=== PATIENT | male | born 2000 | race Caucasian/White ===

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

== ENCOUNTER 2022-05-10 23:56 | Inpatient (IN) ==
[2022-05-11] MEDS ORDERED: ONDANSETRON INJ 2 MG/ML 2 ML VIAL IV STA (00:13)
[2022-05-11] MEDS ORDERED: SODIUM CHLORIDE 0.9% 500 ML IV STA (00:13)
[2022-05-11] MEDS ORDERED: MoRPHine SULFATE 4 MG/ML 1 ML CARP\\VIAL IV STA ×3 (00:13→02:40)
--- NOTE | 2022-05-11 00:14 | Emergency Department Note ---
Impression & Plan Acute pancreatitis ADMIT ED Provider Note HPI: The patient is a 21-year-old male who presents the emergency department chief complaint of left-sided abdominal pain. Patient states his pain is been worsening since about noon today. Patient denies any nausea or vomiting but states he does have some shortness of breath and pain with deep breathing. Patient states the pain does radiate somewhat to his left flank area. On arrival here to the ED the patient is uncomfortable appearing but he is hemodynamically stable, he is saturating well on room air, he is afebrile on presentation. ROS: -GI: Left upper quadrant abdominal pain, left flank pain *10 point review systems was conducted and is otherwise negative unless stated above *Outpatient medications and allergy history reviewed PE: General: Alert, NAD HEENT: Normocephalic, atraumatic Eyes: Extraocular eye movement is intact, no scleral erythema Pulmonary: Clear to auscultation bilaterally, no wheezing Cardio: Regular rate and rhythm GI: Abdomen is soft, there is tenderness to palpation over the mid abdomen and left abdomen/left flank area : No suprapubic tenderness MSK: No evidence of trauma or malformation of the extremities, no edema Skin: No evidence of rash Neuro: Alert, no focal deficits Psychiatric: Cooperative subpoena server: - An order was placed for continuous cardiac monitoring - Patient was noted to be in sinus rhythm with a rate of 67 CT ABDOMEN & PELVIS Without Contrast: Inflammatory stranding surrounding the head of the pancreas and duodenum are concerning for acute pancreatitis. Reactive duodenitis is suspected. No hemorrhage or organized peripancreatic fluid collection. Marked fatty infiltration of the liver. The remaining solid organs are within normal limits. No bowel obstruction. Normal appendix. No fracture. No nephrolithiasis or hy dronephrosis. Radiologist: Erica Carballo MD CTA CHEST: No pulmonary embolus. No aortic aneurysm or dissection. The lungs are clear. Heart size normal. No pathologically enlarged nodes. No fracture. Radiologist: Erica Carballo MD Study ready at 01:59 and initial results transmitted at 02:11 EKG: Rate: 59 Rhythm: Sinus bradycardia Intervals: Within normal limits ST changes: No ST elevation Time: 0036 Medical Decision Making: Patient presented to the emergency department chief complaint of left-sided flank pain and abdominal pain, states it did worsen with deep breathing. Patient was given IV morphine and IV Zofran for symptoms, IV was established and lab work obtained, lab work shows a normal high-sensitivity troponin level, D- dimer was also obtained and is elevated at 720, CT angiography of the chest was obtained in addition to CT imaging of the abdomen pelvis without contrast, no evidence of PE is noted, no evidence of kidney stone, there is evidence of pancreatic inflammation. Patient's lipase is elevated at 303, he was given multiple doses of morphine here in the ED and had improvement in his pain but still does have pain. He tells me he was drinking alcohol this past Sunday, he otherwise is fairly healthy therefore I suspect this is likely the source of his acute pancreatitis. Patient was ordered additional IV fluid bolus and a second dose of morphine here in the ED, I did discuss the case with the on-call hospitalist for [facility], Dr. Nicolas, and patient was admitted to the inpatient service in stable condition for further care. Diagnosis: 1. Acute pancreatitis 2. Abdominal pain/left flank pain 3. Elevated lipase Disposition: Admission Guillermo Phillips DO Emergency Medicine Past Med/Surg History Social History Smoking Status: Current every day smoker Feels Safe at Home: Yes Allergies Allergies Allergy/AdvReac Type Severity Reaction Status Date / Time No Known Allergies Allergy Verified 05/11/22 03:09 Home Meds Home Medications Medication Instructions Recorded Confirmed ibuprofen 200 mg tablet (Advil) 200 mg PO Q6H PRN Pain 05/11/22 05/11/22 Results & Data (ED) Vital Signs Vital Signs - 24 hr 05/11/22 00:01 05/11/22 00:35 05/11/22 00:35 Temperature 35.6 C L Temperature Source Temporal Artery Scan Pulse Rate 67 Pulse Rate [Apical] 57 L Pulse Rhythm [Apical] Regular Pulse Strength [Apical] Normal Respiratory Rate 18 16 Respiratory Effort / Characteristics Non-Labored Spontaneous Non-Labored Respiratory Depth Normal Normal Respiratory Pattern Regular Blood Pressure 133/84 Blood Pressure [Left Arm] 123/82 Blood Pressure Mean 100 Blood Pressure Mean [Left Arm] 95 Blood Pressure Position [Left Arm] Pulse Oximetry 98 100 100 Oxygen Delivery Method Room Air Room Air Room Air Sepsis Recent Fever Within 48 Hours No Sepsis New/Unexplained Change in Mental Status No Sepsis Action Taken by Nursing No Action Required 05/11/22 02:00 Temperature Temperature Source Pulse Rate Pulse Rate [Apical] 66 Pulse Rhythm [Apical] Regular Pulse Strength [Apical] Normal Respiratory Rate 20 Respiratory Effort / Characteristics Non-Labored Respiratory Depth Normal Respiratory Pattern Regular Blood Pressure Blood Pressure [Left Arm] 130/83 Blood Pressure Mean Blood Pressure Mean [Left Arm] 98 Blood Pressure Position [Left Arm] Sitting Pulse Oximetry 97 Oxygen Delivery Method Room Air Sepsis Recent Fever Within 48 Hours Sepsis New/Unexplained Change in Mental Status Sepsis Action Taken by Nursing Laboratory Data Result diagrams: 05/11/22 00:05/11/22 00:29 Lab Results 05/11/22 05/11/22 05/11/22 Range/Units 00: 00: 00:29 WBC 7.99 (4.8-10.8) K/ul RBC 4.99 (4.63-6.08) M/uL Hgb 16.8 (14.0-18.0) g/dl Hct 44.4 (40.1-51.0) % MCV 89.0 (80.0-100.0) fL MCH 33.7 (25.0-34.0) pg MCHC 37.8 H (32.0-36.0) g/dL RDW Std Deviation 34.9 L (36.4-46.3) fL RDW Coeff of Sabi 10.8 L (11.5-14.5) % Plt Count 257 (130-400) K/uL MPV 8.4 L (9.4-12.4) fL Immature Gran % (Auto) 0.1 % Neut % (Auto) 76.0 % Lymph % (Auto) 12.8 % Bee % (Auto) 10.0 % Eos % (Auto) 0.8 % Baso % (Auto) 0.3 % Neut # (Auto) 6.08 (1.4-6.5) K/uL Lymph # (Auto) 1.02 L (1.2-3.4) K/uL Bee # (Auto) 0.80 (0.24-0.82) K/uL Eos # (Auto) 0.06 (0-0.50) K/uL Baso # (Auto) 0.02 (0-0.2) K/uL Immature Gran # (Auto) 0.01 (0.00-0.02) K/uL PT 10.4 (9.0-12.0) Seconds INR 1.0 (0.9-1.1) APTT 23.6 (21.0-31.0) Seconds PTT Ratio 0.9 D-Dimer 720 H* (0-500) ug/L FEU Sodium 137 (136-145) mmol/L Potassium 3.3 L (3.5-5.1) mmol/L Chloride 97 L (98-107) mmol/L Carbon Dioxide 28 (21-32) mmol/L Anion Gap 12 H (3-11) BUN 8 (6-23) mg/dl Creatinine 0.94 (0.6-1.4) mg/dl Est Cr Clr Drug Dosing 107.2 ml/min Est GFR ( Amer) 131.9 ml/min Est GFR (Non-Af Amer) 113.8 ml/min BUN/Creatinine Ratio 8.5 L (10-20) Glucose 116 H (70-99(Fasting)) mg/dl Calcium 11.1 H (8.5-10.1) mg/dl Total Bilirubin 1.1 H (0.2-1.0) mg/dl AST 81 H (13-39) U/L ALT 70 H (7-52) U/L Alkaline Phosphatase 70 (34-104) U/L Troponin I High Sens 7.3 (0-20) pg/ml Total Protein 7.8 (6.0-8.3) gm/dl Albumin 4.8 (3.4-5.0) gm/dl Globulin 3.0 (2.5-4.0) gm/dl Albumin/Globulin Ratio 1.6 (0.9-2) Lipase 309 H (11-82) U/L Urine Color Urine Appearance (Clear) Urine pH (4.5-7.5) Ur Specific [place] (1.000-1.030) Urine Protein (Negative) Urine Glucose (UA) (Negative) Urine Ketones (Negative) Urine Blood (Negative) Urine Nitrite (Negative) Urine Bilirubin (Negative) Urine Urobilinogen (Negative) Ur Leukocyte Esterase (Negative) Urine WBC (Auto) (0-5) /hpf Urine RBC (Auto) (0-4) /hpf U Hyaline Cast (Auto) (0-5) /lpf U Epithel Cells (Auto) (0-5) /lpf Urine Bacteria (Auto) (Negative) Ur Renal Epithelial Cell (0-5) /lpf Granular Casts (0) /lpf 05/11/22 Range/Units 00:29 WBC (4.8-10.8) K/ul RBC (4.63-6.08) M/uL Hgb (14.0-18.0) g/dl Hct (40.1-51.0) % MCV (80.0-100.0) fL MCH (25.0-34.0) pg MCHC (32.0-36.0) g/dL RDW Std Deviation (36.4-46.3) fL RDW Coeff of Sabi (11.5-14.5) % Plt Count (130-400) K/uL MPV (9.4-12.4) fL Immature Gran % (Auto) % Neut % (Auto) % Lymph % (Auto) % Bee % (Auto) % Eos % (Auto) % Baso % (Auto) % Neut # (Auto) (1.4-6.5) K/uL Lymph # (Auto) (1.2-3.4) K/uL Bee # (Auto) (0.24-0.82) K/uL Eos # (Auto) (0-0.50) K/uL Baso # (Auto) (0-0.2) K/uL Immature Gran # (Auto) (0.00-0.02) K/uL PT (9.0-12.0) Seconds INR (0.9-1.1) APTT (21.0-31.0) Seconds PTT Ratio D-Dimer (0-500) ug/L FEU Sodium (136-145) mmol/L Potassium (3.5-5.1) mmol/L Chloride (98-107) mmol/L Carbon Dioxide (21-32) mmol/L Anion Gap (3-11) BUN (6-23) mg/dl Creatinine (0.6-1.4) mg/dl Est Cr Clr Drug Dosing ml/min Est GFR ( Amer) ml/min Est GFR (Non-Af Amer) ml/min BUN/Creatinine Ratio (10-20) Glucose (70-99(Fasting)) mg/dl Calcium (8.5-10.1) mg/dl Total Bilirubin (0.2-1.0) mg/dl AST (13-39) U/L ALT (7-52) U/L Alkaline Phosphatase (34-104) U/L Troponin I High Sens (0-20) pg/ml Total Protein (6.0-8.3) gm/dl Albumin (3.4-5.0) gm/dl Globulin (2.5-4.0) gm/dl Albumin/Globulin Ratio (0.9-2) Lipase (11-82) U/L Urine Color Yellow Urine Appearance Cloudy A (Clear) Urine pH 6.0 (4.5-7.5) Ur Specific [place] 1.015 (1.000-1.030) Urine Protein Trace H (Negative) Urine Glucose (UA) Negative (Negative) Urine Ketones Trace H (Negative) Urine Blood Negative (Negative) Urine Nitrite Negative (Negative) Urine Bilirubin Negative (Negative) Urine Urobilinogen Negative (Negative) Ur Leukocyte Esterase Negative (Negative) Urine WBC (Auto) 1-5 (0-5) /hpf Urine RBC (Auto) 0-4 (0-4) /hpf U Hyaline Cast (Auto) 5-10 H (0-5) /lpf U Epithel Cells (Auto) >30 H (0-5) /lpf Urine Bacteria (Auto) Negative (Negative) Ur Renal Epithelial Cell 0-5 (0-5) /lpf Granular Casts 1-5 H (0) /lpf Administered Medications Sodium Chloride (Nss 1000ml) 1,000 mls @ 999 mls/hr IV .Q1H1M ONE Stop: 05/11/22 03:53 Last Admin: 05/11/22 02:59 Dose: 999 mls/hr Documented By: DANETTE Discontinued Medications Sodium Chloride (Nss) 500 mls @ 999 mls/hr IV .Q31M STA Stop: 05/11/22 00:43 Last Infusion: 05/11/22 01:00 Dose: 0 mls/hr Documented By: Admin: 05/11/22 00:29 Dose: 999 mls/hr Documented By: DANETTE Ioversol (Optiray 300 500ml) 125 ml IV ONCE ONE Stop: 05/11/22 01:49 Last Admin: 05/11/22 01:49 Dose: 111 ml Documented By: MELI Morphine Sulfate (Morphine Sulfate 4 Mg/Ml 1 Ml Carp\Vial) 4 mg IV NOW STA Stop: 05/11/22 00:14 Last Admin: 05/11/22 00:30 Dose: 4 mg Documented By: RSEverardo Morphine Sulfate (Morphine Sulfate 4 Mg/Ml 1 Ml Carp\Vial) 4 mg IV NOW STA Stop: 05/11/22 02:34 Last Admin: 05/11/22 02:43 Dose: Not Given Documented By: RSEverardo Morphine Sulfate (Morphine Sulfate 4 Mg/Ml 1 Ml Carp\Vial) 4 mg IV NOW STA Stop: 05/11/22 02:41 Last Admin: 05/11/22 02:45 Dose: 4 mg Documented By: DANETTE Ondansetron HCl (Ondansetron Inj 2 Mg/Ml 2 Ml Vial) 4 mg IV NOW STA Stop: 05/11/22 00:14 Last Admin: 05/11/22 00:29 Dose: 4 mg Documented By: DANETTE Discharge Plan Visit Data Chief Complaint: Abdominal Pain Stated Complaint: SEVERE ABD PAIN ED Provider: Guillermo Phillips Discharge Problem: Acute pancreatitis Patient Disposition: Admitted As Inpatient Forms Stand Alone Forms: [facility] Prescriptions Prescriptions: No Action ibuprofen [Advil] 200 mg Tablet 200 mg PO Q6H PRN (Reason: Pain) Referrals Referrals: PCP,NO [Primary Care Provider] -
[2022-05-11 00:42] LABS: Basophils # (auto) 0.02 K/uL (0-0.2); Basophils % (auto) 0.3 %; Eosinophils # (auto) 0.06 K/uL (0-0.50); Eosinophils % (auto) 0.8 %; Hematocrit (blood only) 44.4 % (40.1-51.0); Hemoglobin 16.8 g/dl (14.0-18.0); Immature Granulocytes # (auto) 0.01 K/uL (0.00-0.02); Immature Granulocytes % (auto) 0.1 %; Lymphocytes # (auto) 1.02 K/uL (1.2-3.4); Lymphocytes % (auto) 12.8 %; Mean Corpuscular Hemoglobin 33.7 pg (25.0-34.0); Mean Corpuscular Hgb Conc 37.8 g/dL (32.0-36.0); Mean Platelet Volume 8.4 fL (9.4-12.4); Neutrophils # (auto) 6.08 K/uL (1.4-6.5); Platelet Count 257 K/uL (130-400); RDW Coefficient of Variation 10.8 % (11.5-14.5); RDW Standard Deviation 34.9 fL (36.4-46.3); Red Blood Count 4.99 M/uL (4.63-6.08); White Blood Count 7.99 K/ul (4.8-10.8)
[2022-05-11 00:55] LABS: Appearance Urine Cloudy (Clear); Bacteria Urine Automated Negative (Negative); Bilirubin Urine Negative (Negative); Blood Urine Negative (Negative); Color Urine Yellow; Epithelial Cell Urine Auto >30 /lpf (0-5); Glucose Urine UA Negative (Negative); Ketones Urine Trace (Negative); Leukocyte Esterase Urine Negative (Negative); Nitrite Urine Negative (Negative); Protein Urine Trace (Negative); RBC Urine Automated 0-4 /hpf (0-4); Specific Gravity Urine 1.015 (1.000-1.030); Urobilinogen Urine Negative (Negative)
[2022-05-11 01:04] LABS: Partial Thromboplastin Ratio 0.9; Partial Thromboplastin Time 23.6 Seconds (21.0-31.0); Prothrombin Time 10.4 Seconds (9.0-12.0)
[2022-05-11 01:13] LABS: Troponin I High Sensitivity 7.3 pg/ml (0-20)
[2022-05-11 01:14] LABS: Albumin Globulin Ratio 1.6 (0.9-2); Albumin Level 4.8 gm/dl (3.4-5.0); BUN Creatinine Ratio 8.5 (10-20); Bilirubin,Total 1.1 mg/dl (0.2-1.0); Calcium 11.1 mg/dl (8.5-10.1); Creatinine Clr Calc Pharmacy 107.2 ml/min; Est GFR (African American) 131.9 ml/min; Est GFR (Non-African American) 113.8 ml/min; Potassium 3.3 mmol/L (3.5-5.1); Total Protein 7.8 gm/dl (6.0-8.3)
[2022-05-11 01:25] LABS: D Dimer 720 ug/L FEU (0-500)
[2022-05-11 01:44] LABS: Renal Epithelial Cells Urine 0-5 /lpf (0-5)
[2022-05-11] MEDS ORDERED: OPTIRAY 300 500mL IV ONE (01:48)
[2022-05-11] MEDS ORDERED: SODIUM CHLORIDE 0.9% 1000ML 1,000 ML IV ONE (02:53)
[2022-05-11] MEDS ORDERED: POTASSIUM CHLORIDE 20 MEQ/15 ML UDC PO STA (04:03)
[2022-05-11] MEDS ORDERED: LORazepam 2 MG in SYRINGE 1 ML IV PRN (04:59)
[2022-05-11] MEDS ORDERED: NITROGLYCERIN SL 0.4 MG/TAB TAB SL PRN (04:59)
[2022-05-11] MEDS ORDERED: LORazepam 3 MG in SYRINGE 1.5 ML IV PRN (04:59)
[2022-05-11] MEDS ORDERED: ONDANSETRON INJ 2 MG/ML 2 ML VIAL IV PRN (04:59)
[2022-05-11] MEDS ORDERED: Ativan IV Alcohol Withdrawal--Active Protocol IV PRN (04:59)
[2022-05-11] MEDS ORDERED: LORazepam 1 MG in SYRINGE 0.5 ML IV PRN (04:59)
[2022-05-11] MEDS ORDERED: GABAPENTIN 1200MG ALCOHOL WITHDRAWAL LOAD PO STA (04:59)
--- NOTE | 2022-05-11 05:17 | History and Physical Report ---
DATE OF ADMISSION: 05/11/2022. CHIEF COMPLAINT: Abdominal pain, nausea. HISTORY OF PRESENT ILLNESS: A 21-year-old male with no significant past medical history who presents with abdominal pain which started the night before, all over the belly, 8/10 in severity, radiating to the back, associated with some nausea. Pain is also coming to the chest. That is the reason he came here. Imaging studies show some possible pancreatitis. The patient says he drinks alcohol every day since age 15, 16, like two to three beers every night and on the weekends he drinks heavily, about 6 to 12 beers on the weekends. Last Sunday, he drank about 6 beers. Denies any other medical problems, currently resting comfortably, hemodynamically stable. Denies any headache, no neck pain. No blurred visions, no earache, no runny nose, no sore throat, no cough, no shortness of breath. Normal bowel and bladder movements. No swelling in the legs. ALLERGIES: No known drug allergies. PAST MEDICAL HISTORY: As mentioned above. PAST SURGICAL HISTORY: None. MEDICATIONS: None. FAMILY HISTORY: Denies any family history. SOCIAL HISTORY: Drinks alcohol everyday, 2-3 beers everyday and heavily on the weekends. Smoking history, smokes and vapes, first instance around 10 years. Smokes marijuana. Denies any other drugs. REVIEW OF SYSTEMS: As per HPI. Rest of review of systems is negative. PHYSICAL EXAMINATION: GENERAL: The patient is of moderate build, not in acute distress. VITAL SIGNS: Temperature 35.6, pulse 66, respiratory rate 20, blood pressure 130/83, and oxygen 97% on room air. HEENT: Pupils equal, round and reactive to light. Oral mucosa moist. NECK: No JVD, no neck masses. CARDIOVASCULAR: S1 and S2 heard. Regular rate and rhythm. No murmur, no gallop. RESPIRATORY SYSTEM: Normal AP diameter. No accessory muscle use. No wheezing or crackles ABDOMEN: Soft, bowel sounds sluggish. Diffuse tenderness, mild guarding, no rigidity, no distention. CENTRAL NERVOUS SYSTEM: Cranial nerves II through XII are grossly intact, nonfocal. EXTREMITIES: No edema, no erythema. LABORATORY DATA: WBC 7.9, hemoglobin 16.8, hematocrit 44.4, platelets 257. PT 10.4, INR 1, APTT 23.6. D-dimer 720. Sodium 137, potassium 3.3, chloride 97, bicarbonate 28, BUN 8, creatinine 0.9, serum glucose 116, calcium 11.1, total bilirubin 1.1, AST 81, ALT 70, alkaline phosphatase 70. Troponin I high sensitivity 7.3. Lipase 309. Urinalysis negative. SARS-CoV-2 rapid test negative. IMAGING DATA:. CTA chest, no PE, no acute findings. CT of abdomen and pelvis without contrast, inflammatory stranding around the head of the pancreas and duodenum concerning for acute pancreatitis. duodenitis is suspected. Chest x- ray, no acute findings. EKG: Sinus bradycardia at a rate of 59, no significant change was found. ASSESSMENT AND PLAN: This 21-year-old male presents with abdominal pain and found to have acute pancreatitis. 1. Acute pancreatitis, most likely alcohol-induced. We will follow final report of CAT scan. Keep n.p.o. Aggressive fluids, _ IV antiemetics, IV pain medications n.p.o. Consult GI for further recommendations. 2. Possible duodenitis. Place on IV Protonix. 3. Elevated D-dimer. No PE on CAT scan. 4. Hypokalemia: We will replace. 5. Alcoholism: We will give him banana bag. Place on gabapentin protocol, IV Ativan p.r.n., IV thiamine and folic acid daily and closely monitor for any withdrawals. 6. Deep venous thrombosis prophylaxis: Lovenox. DISPOSITION: Closely monitor in the med tele. PT/OT prior to discharge. Social service to help with discharge planning. Job ID: [id number] MTDD
[2022-05-11] MEDS ORDERED: MULTI-VITAMIN INFUSION 10 ML, THIAMINE HCL 100 MG, FOLIC ACID 1 MG in SODIUM CHLORIDE 0... IV ONE (05:30)
[2022-05-11] MEDS ORDERED: GABAPENTIN 600 MG TAB PO ONE (05:30)
[2022-05-11] MEDS: HYDROmorphone INJ 0.5 MG/0.5 ML SYR IV PRN ×3 (06:04→12:17)
--- NOTE | 2022-05-11 07:30 | CT Scan Report ---
ABDOMEN AND PELVIS CT WITHOUT CONTRAST CT DOSE: 632.03 mGy.cm HISTORY: L flank pain TECHNIQUE: Multiaxial CT images of the abdomen and pelvis were performed without contrast. A dose lo wering technique was utilized adhering to the principles of ALARA. COMPARISON STUDY: Abdomen and pelvis CT 11/05/2010. FINDINGS: The lung bases are clear. No pneumoperitoneum. No pneumatosis. No fractures within the visu alized osseous structures. Severe hepatic steatosis. The gallbladder, spleen, adrenal glands, and kid neys are unremarkable. No renal stones or hydronephrosis. Mild edema within and surrounding the pancr eatic head. There is a small amount of fluid surrounding the second portion of the duodenum and exten ding into the right anterior pararenal space. Findings favor an acute pancreatitis. No retroperitonea l lymphadenopathy. Normal caliber abdominal aorta. The bladder is unremarkable. No pelvic free fluid. Suboptimal evaluation for bowel pathology due to the lack of intravenous and oral contrast. However, there is no definite bowel wall thickening or obstruction. The appendix is gas-filled and likely wit hin the range normal limits. Mild thickening of the second portion of duodenum is likely reactive. IMPRESSION: 1. Edema surrounding the pancreatic head and second portion of the duodenum favors an acute pancreati tis. Recommend correlation with pancreatic enzymes. 2. Severe hepatic steatosis. 3. Mild thickening at the second portion of duodenum is likely reactive. 4. No evidence for bowel obstruction. ACT 112: Negative or not required by law. Electronically signed by: Michelet Salter M.D. 05/11/2022 7:28 AM
[2022-05-11] MEDS: ENOXAPARIN INJ 40 MG/0.4 ML SYR SQ SCH (07:43)
[2022-05-11] MEDS: THIAMINE HCL 100 MG in SYRINGE 9 ML IV SCH (07:43)
[2022-05-11] MEDS: FOLIC ACID 1 MG in SYRINGE 9.8 ML IV SCH (07:43)
--- NOTE | 2022-05-11 07:44 | CT Scan Report ---
CT ANGIOGRAM OF THE CHEST CLINICAL HISTORY: Atypical chest pain. Left flank pain. COMPARISON STUDY: Chest x-ray dated 05/11/2022. TECHNIQUE: Following the IV administration of 111 cc of Optiray 300, CT angiogram of the chest was pe rformed from the upper abdomen to the thoracic inlet utilizing the pulmonary embolus protocol. Images are reviewed in the axial, sagittal, and coronal planes. 3-D MIPS images are created and assessed. I V contrast was administered without complication. A dose lowering technique was utilized adhering to the principles of ALARA. FINDINGS: Thyroid: Imaged portions of the thyroid gland are normal in size and attenuation. Thoracic aorta: The thoracic aorta is normal in caliber and demonstrates standard 3-vessel arch anato my. No dissection is seen. Pulmonary vasculature: The pulmonary trunk is normal in caliber. There are no filling defects identif ied in main, lobar, or segmental pulmonary branches to suggest pulmonary embolus. Heart: The heart is normal in size and without pericardial effusion. Lungs and pleural spaces: The lungs and pleural spaces are clear. The trachea and central airways are patent. Mediastinum: There is no mediastinal lymphadenopathy. Flora: Clear. Axillae: There is no axillary lymphadenopathy. Upper abdomen: The liver appears stated ptotic. Partially visualized upper abdominal viscera is other garduno within normal limits. Skeletal structures: No lytic or blastic bony lesions are seen. There is a subacute-appearing left an terior sixth rib fracture. IMPRESSION: 1. There is no evidence of pulmonary embolus in the main, lobar, or segmental pulmonary arteries. 2. There is a subacute-appearing left anterior 6th rib fracture. Correlate for point tenderness. 3. The lungs are clear. 4. Hepatic steatosis. 5. Additional findings as above. ACT 112: Negative or not required by law. Electronically signed by: Denys Keane M.D. 05/11/2022 7:42 AM
[2022-05-11] MEDS: LACTATED RINGER'S 1,000 ML IV SCH ×4 (07:57→21:21)
--- NOTE | 2022-05-11 08:20 | Gastrointestinal Consultation ---
Date of Consultation May 11, 2022 Assessment & Plan (1) Acute pancreatitis: Likely alcoholic, though he may also be passing small bits of biliary sludge that did not show on the CT scan. Plan Biliary US Continue LR Bowel rest - if does well during today then could start clear liquids this afternoon or evening. Needs complete alcohol abstention - ongoing. Recommend against vaping, smoking or marijuana. Pathophysiology of pancreatitis explained to pt and his mother. Informed that most likely this is caused by alcohol though biliary sludge is also considered. No GI indication for antibiotics. Plan for OP EUS in 6-8 wks. Supervising Physician Co-Signing Physician Notes I have personally seen and examined the patient with ISABELA Pierre. Her note reflects my exam and findings. I agree with her impression and plan. Most c/w ETOH induced pancreatitis. Await ultrasound results. Cont aggressive volume replacement and NPO. Follow electrolytes and replace as need be. Harvinder White M.D. History of Present Illness Reason for Consultation: Acute Pancreatitis Requesting Physician: Dr. Nicolas Attending Physician: Brandon Fraga MD History of Present Illness Mr. Daniele Michel is a 21 yr old male pt of Dr. Mike Johnson who presented to the ED yesterday for abdominal pain. Imaging is suggestive of acute, uncomplicated pancreatitis as well as fatty liver. Lipase is elevated at 309. LFTs are also elevated: T Bili 1.1, AST 81, ALT 70; Alk Phos is normal. He reports having had this type pain previously. He first noticed some pain on Sunday though mild and was able to continue working. He was awakened around 3 AM yesterday with moderately severe pain which improved briefly but overall persisted and he presented to the emergency department very late yesterday. He has not had yellow eyes or skin. He has had chills and sweats and nausea but no measured fevers and no vomiting. He had some diarrhea with the severe pain but does not typically have constipation or diarrhea. He pt reports drinking 2-3 beers most weekdays and 6-12 on weekends. He also vapes. He is a [employer] graduate. He works at the [employer]. His mother is in the room with him, she reports that she had gallbladder disease and questions if he could possibly have a problem with his gallbladder. Allergies Allergy/AdvReac Type Severity Reaction Status Date / Time No Known Allergies Allergy Verified 05/11/22 03:09 Home Medications Medication Instructions Recorded Confirmed Type ibuprofen 200 mg tablet (Advil) 200 mg PO Q6H PRN Pain 05/11/22 05/11/22 History Patient History Social History Smoking Status: Current every day smoker Second Hand Exposure: No; Do You Dip or Chew Tobacco: No; Tobacco Cessation Education Requested by Patient: No Hx Alcohol Use: Yes Alcohol type: hard liquor Hx Substance Use: No Preferred Language: Albanian Communication Ability: Effective Real Estate Marketing Coordinator Required: No Beliefs That Will Affect Care: None Current Living Situation: Family Other Information That Helps Us Care for You: No Feels Safe at Home: Yes Safety Concerns: Feels Safe At This Time Assistive Devices: None Review of Systems Review of Systems: ROS: Gen: + Sweats and chills, denies weakness,, weight loss Eyes: No eye redness, or pain, no recent vision changes Resp: No SOB, no cough Cardio: No palpitations/irregular beats, no chest pain GI: As per HPI otherwise negative : Denies pain on urination Skin: No jaundice, itching or new rashes Hem: no excessive bleeding/bruising Physical Exam Constitutional: WD/WN, vitals as above Eyes: PERRL, conjunctivae normal, anicteric sclerae ENMT: external ear and nose normal, oropharynx normal Neck: trachea midline, no thyromegaly Respiratory: normal respiratory effort, lungs clear to auscultation Cardiovascular: RRR, no murmur, no edema Gastrointestinal (Abdomen): Inspection/Auscultation: abdomen normal to inspection and + hypoactive bowel sounds; abdomen not distended Percussion/Palpation: + abdomen tender (Very tender over the entire upper abdomen) Skin: no rashes, warm and dry Neurologic: PERRL, EOMI, accommodation nl, no face palsy, no dysarthria Psychiatric: A+Ox3, euthymic affect Lymphatic: no cervical or axillary lymphadenopathy Results & Data ([facility]) Vital Signs (Past 12 Hours) Vital Signs Temp Pulse Pulse Resp BP BP Pulse Ox 05/11/22 06:22 36.9 C 54 L 18 136/91 96 05/11/22 04:59 36.8 C 54 L 18 136/91 97 05/11/22 05:33 55 L 05/11/22 04:45 20 145/99 H 96 05/11/22 02:00 66 20 130/83 97 05/11/22 00:35 100 05/11/22 00:35 57 L 16 123/82 100 05/11/22 00:01 35.6 C L 67 18 133/84 98 O2 Del Method 05/11/22 06:22 Room Air 05/11/22 04:59 Room Air 05/11/22 05:33 05/11/22 04:45 Room Air 05/11/22 02:00 Room Air 05/11/22 00:35 Room Air 05/11/22 00:35 Room Air 05/11/22 00:01 Room Air Laboratory Results WBC 7.9, Hb 16, Hct 44, Plts 257, Na 137, K 3.3, Cl 97, CO2 28, BUN 8, Cr 0.94, glucose 116 Lipase 309 Diagnostic Findings non contrast CTAP today: 1. Edema surrounding the pancreatic head and second portion of the duodenum favors an acute pancreatitis. Recommend correlation with pancreatic enzymes. 2. Severe hepatic steatosis. 3. Mild thickening at the second portion of duodenum is likely reactive. 4. No evidence for bowel obstruction. (1) Acute pancreatitis Acute pancreatitis complication: unspecified Pancreatitis type: unspecified pancreatitis type Qualified Code(s): K85.90 - Acute pancreatitis without necros is or infection, unspecified
--- NOTE | 2022-05-11 08:49 | Electrocardiogram Report ---
Test Reason : Blood Pressure : / mmHG Vent. Rate : 059 BPM Atrial Rate : 059 BPM P-R Int : 126 ms QRS Dur : 098 ms QT Int : 404 ms P-R-T Axes : 015 066 053 degrees QTc Int : 399 ms Sinus bradycardia Normal ECG When compared with ECG of 17-DEC-2015 16:50, No significant change was found Confirmed by Marcellus Brandon ([id number]) on 05/11/2022 8:48:29 AM Referred By: REFERRED SELF Confirmed By:Marcellus Brandon
[2022-05-11] MEDS: PANTOprazole 40 MG in SYRINGE 0 ML IV SCH ×2 (09:05→21:21)
--- NOTE | 2022-05-11 09:42 | XRay Report ---
XR chest 1V portable HISTORY: Atypical Chest Pain COMPARISON: None. FINDINGS: The lungs are clear. Cardiac silhouette is normal in size. No pleural effusions. No pneumot horax. IMPRESSION: No acute process. ACT 112: Negative or not required by law. Electronically signed by: Michelet Salter M.D. 05/11/2022 9:41 AM
[2022-05-11] MEDS: GABAPENTIN 600 MG TAB PO SCH ×2 (12:16→17:54)
--- NOTE | 2022-05-11 12:29 | Ultrasound Report ---
ABDOMINAL ULTRASOUND, RIGHT UPPER QUADRANT HISTORY: pancreatitis, elevated LFTs. COMPARISON: CT of the abdomen and pelvis May 11, 2022. FINDINGS: Hepatic echogenicity is increased. No hepatic lesions are identified. There is no biliary d uctal dilatation. Common bile duct measures 4 mm in caliber. Pancreas is obscured on this exam due to overlying bowel gas. No gallstones are identified. Probable small amount of sludge within gallbladde r is noted. No gallbladder wall thickening. There is no evidence for acute cholecystitis. No right hy dronephrosis is present. IMPRESSION: 1. No gallstones or biliary ductal dilatation. Probable small amount of sludge within the gallbladder . No evidence for acute cholecystitis. 2. Hepatic steatosis. 3. Obscured pancreas due to overlying bowel gas. ACT 112: Negative or not required by law. Electronically signed by: Garry Altman M.D. 05/11/2022 12:28 PM
--- NOTE | 2022-05-11 14:47 | Communication Note ---
Date of Service: May 11, 2022 The patient was seen and examined in medical telemetry unit. He remains stable and has been feeling better since admission. A full progress note will be done tomorrow. Dr Mitzy Fraga
--- NOTE | 2022-05-11 16:01 | Electrocardiogram Report ---
Test Reason : Blood Pressure : / mmHG Vent. Rate : 054 BPM Atrial Rate : 054 BPM P-R Int : 116 ms QRS Dur : 100 ms QT Int : 430 ms P-R-T Axes : 035 084 070 degrees QTc Int : [address] elevation, most consistent with repolarization variant Otherwise normal ECG When compared with ECG of 11-MAY-2022 00:36, No significant change was found Confirmed by Marcellus Brandon ([id number]) on 05/11/2022 4:00:40 PM Referred By: REFERRED SELF Confirmed By:Marcellus Brandon
[2022-05-12] MEDS: GABAPENTIN 600 MG TAB PO SCH ×3 (03:06→17:33)
[2022-05-12] MEDS: LACTATED RINGER'S 1,000 ML IV SCH ×4 (03:06→19:36)
[2022-05-12] MEDS: HYDROmorphone INJ 0.5 MG/0.5 ML SYR IV PRN ×3 (06:41→19:36)
[2022-05-12 08:20] LABS: Albumin Globulin Ratio 1.5 (0.9-2); BUN Creatinine Ratio 4.5 (10-20); Bilirubin Direct 0.3 mg/dl (0-0.2); Bilirubin,Total 1.1 mg/dl (0.2-1.0); Calcium 9.1 mg/dl (8.5-10.1); Creatinine Clr Calc Pharmacy 117.3 ml/min; Est GFR (African American) 140.3 ml/min; Est GFR (Non-African American) 121.1 ml/min; Globulin 2.7 gm/dl (2.5-4.0); Potassium 3.3 mmol/L (3.5-5.1); Total Protein 6.7 gm/dl (6.0-8.3)
[2022-05-12 08:36] LABS: Folate (Folic Acid) > 22.30 ng/ml (>5.38)
[2022-05-12 08:37] LABS: Vitamin B12 410 pg/ml (180-914)
[2022-05-12] MEDS: PANTOprazole 40 MG in SYRINGE 0 ML IV SCH ×2 (09:01→21:12)
[2022-05-12] MEDS: ENOXAPARIN INJ 40 MG/0.4 ML SYR SQ SCH (09:01)
[2022-05-12] MEDS: FOLIC ACID 1 MG in SYRINGE 9.8 ML IV SCH (09:02)
[2022-05-12] MEDS: THIAMINE HCL 100 MG in SYRINGE 9 ML IV SCH (09:02)
--- NOTE | 2022-05-12 09:35 | Gastroenterology Progress Note ---
Date of Service May 12, 2022 Assessment & Plan (1) Acute pancreatitis: Plan: Likely alcoholic, though he may also be passing small bits of biliary sludge that did not show on the CT scan. In light of high fat diet hypertriglyceridemia may be an issue - will check triglycerides level. Plan Will check fasting trig level tomorrow morning. Continue LR Diet because increased pain this morning, will keep on clear liquids again. If improves today, then could advance to low fat tomorrow morning. Alcohol abstention - discussed at length with the pt (w/o mother in the room). He seems motivated to make changes. Interestingly he reports that all members of his family drink a bit more alcohol that a typical person. Recommend against vaping, marijuana. Discussion regarding fatty liver and possible progression to cirrhosis if continued increased alcohol intake. Recommend counseling to help with abstention from above mentioned vices. Plan for OP EUS in 6-8 wks. Admission and Anticipated Discharge Date Admission Date: May 11, 2022 Supervising Physician Co-Signing Physician Notes I have personally seen and examined the patient with ISABELA Pierre. Her note reflects my exam and findings. I agree with her impression and plan. Slowly improving. Will arrange out patient EUS. Harvinder White M.D. Subjective 21, male, admitted early 05/11 w acute uncomplicated pancreatitis. Was doing well w minimal pain last evening but pain returned this morning, is a little lower and more diffuse epigastric to umbilical area. Improved w 0.5 Dilaudid. No measured fever. + sweats overnight On clear liquids w/o nausea or increased pain after drinking. Admits to vaping (containing nicotine) "all day long," equivalent to 1/2 of cigarettes; smoking marijuana 1-2 x/day and repeats same alcohol (beer): 2-3/day weekdays and 6-12 each weekend day. Also very high fat diet. Review of Systems Review of Systems: ROS: Gen: + Sweats and chills, denies weakness,, weight loss Eyes: No eye redness, or pain, no recent vision changes Resp: No SOB, no cough Cardio: No palpitations/irregular beats, no chest pain GI: As per HPI otherwise negative : Denies pain on urination Skin: No jaundice, itching or new rashes Hem: no excessive bleeding/bruising Physical Exam Constitutional: WD/WN, vitals as above Eyes: PERRL, conjunctivae normal, anicteric sclerae ENMT: external ear and nose normal, oropharynx normal Neck: trachea midline, no thyromegaly Respiratory: normal respiratory effort, lungs clear to auscultation Cardiovascular: RRR, no murmur, no edema Gastrointestinal (Abdomen): Inspection/Auscultation: abdomen normal to inspection and + hypoactive bowel sounds; abdomen not distended Percussion/Palpation: + abdomen tender (Very tender over the entire upper abdomen) Skin: no rashes, warm and dry Neurologic: PERRL, EOMI, accommodation nl, no face palsy, no dysarthria Psychiatric: A+Ox3, euthymic affect Lymphatic: no cervical or axillary lymphadenopathy Results & Data ([facility]) Vital Signs (Past 12 Hours) Vital Signs Temp Pulse Pulse Resp BP Pulse Ox O2 Del Method 05/12/22 07:21 55 L 05/12/22 07:08 36.5 C 68 20 124/72 94 Room Air 05/12/22 04:00 36.8 C 67 20 116/71 95 Room Air 05/11/22 23:41 70 05/11/22 23:00 36.8 C 63 20 111/68 98 Room Air Laboratory Results NA 138, K3.3, CL 102, CO2 32, BUN 4, CR 0.88, glucose 88; lipase is pending. T bili 1.1, D bili 0.3, AST 39, ALT 41, alk phos 56 LFTs improved. Diagnostic Findings Liver US 05/11/22: 1. No gallstones or biliary ductal dilatation. Probable small amount of sludge within the gallbladder. No evidence for acute cholecystitis. 2. Hepatic steatosis. 3. Obscured pancreas due to overlying bowel gas. (1) Acute pancreatitis Acute pancreatitis complication: unspecified Pancreatitis type: unspecified pancreatitis type Qualified Code(s): K85.90 - Acute pancreatitis without necrosis or infection, unspecified
[2022-05-12 10:30] LABS: Phosphorus 3.3 mg/dl (2.5-4.9)
--- NOTE | 2022-05-12 13:22 | Hospitalist Progress Note ---
Date of Service May 12, 2022 Assessment & Plan (1) Acute pancreatitis: Plan: Presented with a abdominal pain, nausea and vomiting CT scan documented acute pancreatitis which is likely secondary to alcoholism Was on n.p.o. with IV fluid replacement Clinically much better today and has been tolerating clears Will advance diet and if tolerated well likely discharge tomorrow Lipase remains a little high and will recheck Electrolyte imbalance Expected secondary acute pancreatitis Will supplement and will be monitored (2) Alcoholism: Plan: Strongly advised to quit drinking No signs and or symptoms of withdrawal Has been on gabapentin protocol DVT prophylaxis Lovenox CODE STATUS Full Admission and Anticipated Discharge Date Admission Date: May 11, 2022 Subjective 05/12/2022 The patient was seen and examined in medical telemetry unit He has been complaining of minimal pain in the abdomen and has been tolerating clears orally No abdominal distention and no nausea no vomiting Diet will be advanced as tolerated Review of Systems Review of Systems: All systems reviewed and are unremarkable except as noted below Gastrointestinal: Minimal abdominal pain without any distention and/or nausea/vomiting Physical Exam Physical Exam: Lying in bed without any acute distress Constitutional: average body habitus; not ill appearing Eyes: PERRL, conjunctivae normal, anicteric sclerae ENMT: external ear and nose normal, oropharynx normal Neck: trachea midline, no thyromegaly Respiratory: no respiratory distress Auscultation: lungs clear to auscultation bilaterally Cardiovascular: Rate/Rhythm: regular rate, regular rhythm and + bradycardic Heart Sounds: normal S1 and normal S2; no murmur Extremities: no edema Gastrointestinal (Abdomen): Inspection/Auscultation: normal bowel sounds; abdomen not distended Percussion/Palpation: abdomen soft; abdomen nontender Musculoskeletal: No acute arthritis in any joint Neurologic: normal touch/pain/proprioception and moves all extremities; no focal motor deficits Psychiatric: A+Ox3, euthymic affect Lymphatic: no cervical or axillary lymphadenopathy Results & Data Results & Data ([facility]) Vital Signs (Past 12 Hours) Vital Signs Temp Pulse Pulse Resp BP Pulse Ox O2 Del Method 05/12/22 11:05 36.5 C 57 L 16 123/83 98 Room Air 05/12/22 07:21 55 L 05/12/22 07:08 36.5 C 68 20 124/72 94 Room Air 05/12/22 04:00 36.8 C 67 20 116/71 95 Room Air Laboratory Results [facility] 05/12/22 07:26 Sodium 138 Potassium 3.3 L Chloride 102 Carbon Dioxide 32 BUN 4 L Creatinine 0.88 Glucose 88 Calcium 9.1 D Liver Function 05/12/22 Range/Units 07:26 Total Bilirubin 1.1 H (0.2-1.0) mg/dl Direct Bilirubin 0.3 H (0-0.2) mg/dl AST 39 (13-39) U/L ALT 41 (7-52) U/L Alkaline Phosphatase 56 (34-104) U/L Albumin 4.0 (3.4-5.0) gm/dl Medications Administered Current Inpatient Medications Enoxaparin Sodium (Enoxaparin Inj 40 Mg/0.4 Ml Syr) 40 mg SQ Q24H RUTH ANN Stop: 06/10/22 08:59 Last Admin: 05/12/22 09:01 Dose: 40 mg Gabapentin (Gabapentin 600 Mg Tab) 600 mg PO Q8H RUTH ANN Stop: 05/12/22 18:01 Last Admin: 05/12/22 09:01 Dose: 600 mg Gabapentin (Gabapentin 600 Mg Tab) 600 mg PO Q12H RUTH ANN Stop: 05/13/22 18:01 Gabapentin (Gabapentin 600 Mg Tab) 600 mg PO Q24H RUTH ANN Stop: 05/14/22 18:01 Hydromorphone HCl (Hydromorphone Inj 0.5 Mg/0.5 Ml Syr) 0.5 mg IV Q3H PRN PRN Reason: Pain Stop: 05/25/22 04:58 Last Admin: 05/12/22 10:58 Dose: 0.5 mg Lactated Ringer's (Lr) 1,000 mls @ 200 mls/hr IV .Q5H RUTH ANN Stop: 06/10/22 07:29 Last Admin: 05/12/22 09:00 Dose: 200 mls/hr Thiamine HCl 100 mg/ Syringe 10 mls @ 2 mls/min IV QAM RUTH ANN Stop: 06/10/22 08:59 Last Admin: 05/12/22 09:02 Dose: 2 mls/min Folic Acid 1 mg/ Syringe 10 mls @ 5 mls/min IV QAM RUTH ANN Stop: 06/10/22 08:59 Last Admin: 05/12/22 09:02 Dose: 5 mls/min Lorazepam 2 mg/ Syringe 2 mls @ 2 mls/min IV UD PRN; Protocol PRN Reason: EtOH Withdrawal AWSS Score 8,9 Stop: 06/10/22 04:58 Lorazepam 1 mg/ Syringe 1 mls @ 2 mls/min IV UD PRN; Protocol PRN Reason: EtOH Withdrawal AWSS Score 6,7 Stop: 06/10/22 04:58 Lorazepam 3 mg/ Syringe 3 mls @ 2 mls/min IV ONCE PRN; Protocol PRN Reason: EtOH Withdrawal AWSS Score 10 & above Pantoprazole Sodium 40 mg/ (Syringe) 10 mls @ 5 mls/min IV BID RUTH ANN Stop: 06/10/22 08:59 Last Admin: 05/12/22 09:01 Dose: 5 mls/min Nitroglycerin (Nitroglycerin Sl 0.4 Mg/Tab Tab) 0.4 mg SL UD PRN PRN Reason: Chest Pain Stop: 06/10/22 04:58 Ondansetron HCl (Ondansetron Inj 2 Mg/Ml 2 Ml Vial) 4 mg IV Q6H PRN PRN Reason: Nausea Stop: 06/10/22 04:58 Last Admin: 05/11/22 08:31 Dose: 4 mg (1) Acute pancreatitis Acute pancreatitis complication: unspecified Pancreatitis type: unspecified pancreatitis type Qualified Code(s): K85.90 - Acute pancreatitis without necrosis or infection, unspecified
--- NOTE | 2022-05-12 14:26 | Electrocardiogram Report ---
Test Reason : Blood Pressure : / mmHG Vent. Rate : 072 BPM Atrial Rate : 072 BPM P-R Int : 148 ms QRS Dur : 090 ms QT Int : 392 ms P-R-T Axes : 077 085 062 degrees QTc Int : 429 ms Poor data quality, interpretation may be adversely affected Sinus rhythm with marked sinus arrhythmia Early repolarization Otherwise normal ECG When compared with ECG of 11-MAY-2022 05:29, No significant change was found Confirmed by Jonathan Dowell ([id number]) on 05/12/2022 2:25:29 PM Referred By: REFERRED SELF Confirmed By:Jonathan Dowell
[2022-05-13] MEDS: HYDROmorphone INJ 0.5 MG/0.5 ML SYR IV PRN ×3 (00:28→08:48)
[2022-05-13] MEDS: LACTATED RINGER'S 1,000 ML IV SCH ×3 (00:45→10:35)
[2022-05-13] MEDS ORDERED: GABAPENTIN 600 MG TAB PO SCH (06:00)
[2022-05-13 07:01] LABS: Basophils # (auto) 0.01 K/uL (0-0.2); Basophils % (auto) 0.2 %; Eosinophils # (auto) 0.15 K/uL (0-0.50); Eosinophils % (auto) 2.6 %; Hematocrit (blood only) 36.3 % (40.1-51.0); Hemoglobin 13.1 g/dl (14.0-18.0); Immature Granulocytes # (auto) 0.03 K/uL (0.00-0.02); Immature Granulocytes % (auto) 0.5 %; Lymphocytes # (auto) 1.01 K/uL (1.2-3.4); Lymphocytes % (auto) 17.3 %; Mean Corpuscular Hgb Conc 36.1 g/dL (32.0-36.0); Mean Corpuscular Volume 91.4 fL (80.0-100.0); Mean Platelet Volume 8.9 fL (9.4-12.4); Monocytes # (auto) 0.74 K/uL (0.24-0.82); Monocytes % (auto) 12.6 %; Neutrophils # (auto) 3.91 K/uL (1.4-6.5); Neutrophils % (auto) 66.8 %; Platelet Count 166 K/uL (130-400); RDW Coefficient of Variation 10.8 % (11.5-14.5); RDW Standard Deviation 36.6 fL (36.4-46.3); Red Blood Count 3.97 M/uL (4.63-6.08); White Blood Count 5.85 K/ul (4.8-10.8)
[2022-05-13 07:30] LABS: Anion Gap 6 (3-11); BUN Creatinine Ratio 6.8 (10-20); Blood Urea Nitrogen 5 mg/dl (6-23); Calcium 8.6 mg/dl (8.5-10.1); Carbon Dioxide 29 mmol/L (21-32); Chloride 101 mmol/L (98-107); Creatinine Clr Calc Pharmacy 141.6 ml/min; Est GFR (African American) > 150.0 ml/min; Est GFR (Non-African American) 130.7 ml/min; Glucose 87 mg/dl (70-99(Fasting)); Lipase 296 U/L (11-82); Magnesium 1.9 mg/dl (1.7-2.4); Potassium 3.1 mmol/L (3.5-5.1); Sodium 136 mmol/L (136-145)
[2022-05-13] MEDS ORDERED: POTASSIUM CHLORIDE CRTAB 20 MEQ TABCR PO STA (07:50)
[2022-05-13] MEDS: PANTOprazole 40 MG in SYRINGE 0 ML IV SCH (08:49)
[2022-05-13] MEDS: FOLIC ACID 1 MG in SYRINGE 9.8 ML IV SCH (08:50)
[2022-05-13] MEDS: THIAMINE HCL 100 MG in SYRINGE 9 ML IV SCH (08:50)
[2022-05-13] MEDS: ENOXAPARIN INJ 40 MG/0.4 ML SYR SQ SCH (08:53)
--- NOTE | 2022-05-13 12:18 | Hospitalist Progress Note ---
Date of Service May 13, 2022 Assessment & Plan (1) Acute pancreatitis: Plan: Presented with a abdominal pain, nausea and vomiting CT scan documented acute pancreatitis which is likely secondary to alcoholism Was on n.p.o. with IV fluid replacement Clinically much better today and has been tolerating clears Will advance diet and if tolerated well likely discharge tomorrow Lipase remains a little high and will recheck Lipase has improved a lot and the patient remains asymptomatic Will be discharged home this afternoon Advised to follow low-fat diet and keep appointment with GI as an outpatient for EUS Electrolyte imbalance Expected secondary acute pancreatitis Will supplement and will be monitored Got supplement (2) Alcoholism: Plan: Strongly advised to quit drinking No signs and or symptoms of withdrawal Has been on gabapentin protocol Strongly advised to quit drinking, stop vaping and stop marijuana DVT prophylaxis Lovenox CODE STATUS Full Admission and Anticipated Discharge Date Admission Date: May 11, 2022 Subjective 05/12/2022 The patient was seen and examined in medical telemetry unit He has been complaining of minimal pain in the abdomen and has been tolerating clears orally No abdominal distention and no nausea no vomiting Diet will be advanced as tolerated 05/13/2022 The patient was seen and examined in medical telemetry unit He denies any significant abdominal pain and the pain is about 1 out of 10 on a scale of 0-10 No nausea no vomiting and no abdominal distention He has been moving his bowels regularly and tolerating regular food Review of Systems Review of Systems: All systems reviewed and are unremarkable except as noted below Gastrointestinal: Minimal abdominal pain without any distention and/or nausea/vomiting Physical Exam Physical Exam: Lying in bed without any acute distress Constitutional: average body habitus; not ill appearing Eyes: PERRL, conjunctivae normal, anicteric sclerae ENMT: external ear and nose normal, oropharynx normal Neck: trachea midline, no thyromegaly Respiratory: no respiratory distress Auscultation: lungs clear to auscultation bilaterally Cardiovascular: Rate/Rhythm: regular rate, regular rhythm and + bradycardic Heart Sounds: normal S1 and normal S2; no murmur Extremities: no edema Gastrointestinal (Abdomen): Inspection/Auscultation: normal bowel sounds; abdomen not distended Percussion/Palpation: abdomen soft; abdomen nontender Neurologic: normal touch/pain/proprioception and moves all extremities; no focal motor deficits Psychiatric: A+Ox3, euthymic affect Lymphatic: no cervical or axillary lymphadenopathy Results & Data Results & Data ([facility]) Vital Signs (Past 12 Hours) Vital Signs Temp Pulse Resp BP Pulse Ox O2 Del Method 05/13/22 11:50 36.4 C L 62 132/79 100 Room Air 05/13/22 08:32 36.8 C 75 18 123/77 99 Room Air 05/13/22 02:41 36.4 C L 46 L 16 124/80 99 Room Air Laboratory Results Short CBC 05/13/22 Range/Units 06:48 WBC 5.85 (4.8-10.8) K/ul Hgb 13.1 L (14.0-18.0) g/dl Hct 36.3 L (40.1-51.0) % Plt Count 166 (130-400) K/uL BMP 05/13/22 06:48 Sodium 136 Potassium 3.1 L Chloride 101 Carbon Dioxide 29 BUN 5 L Creatinine 0.73 Glucose 87 Calcium 8.6 Medications Administered Current Inpatient Medications Enoxaparin Sodium (Enoxaparin Inj 40 Mg/0.4 Ml Syr) 40 mg SQ Q24H RUTH ANN Stop: 06/10/22 08:59 Last Admin: 05/13/22 08:53 Dose: 40 mg Gabapentin (Gabapentin 600 Mg Tab) 600 mg PO Q12H RUTH ANN Stop: 05/13/22 18:01 Last Admin: 05/13/22 05:31 Dose: 600 mg Gabapentin (Gabapentin 600 Mg Tab) 600 mg PO Q24H RUTH ANN Stop: 05/14/22 18:01 Hydromorphone HCl (Hydromorphone Inj 0.5 Mg/0.5 Ml Syr) 0.5 mg IV Q3H PRN PRN Reason: Pain Stop: 05/25/22 04:58 Last Admin: 05/13/22 08:48 Dose: 0.5 mg Lactated Ringer's (Lr) 1,000 mls @ 200 mls/hr IV .Q5H RUTH ANN Stop: 06/10/22 07:29 Last Admin: 05/13/22 10:35 Dose: 200 mls/hr Thiamine HCl 100 mg/ Syringe 10 mls @ 2 mls/min IV QAM RUTH ANN Stop: 06/10/22 08:59 Last Admin: 05/13/22 08:50 Dose: 2 mls/min Folic Acid 1 mg/ Syringe 10 mls @ 5 mls/min IV QAM RUTH ANN Stop: 06/10/22 08:59 Last Admin: 05/13/22 08:50 Dose: 5 mls/min Lorazepam 2 mg/ Syringe 2 mls @ 2 mls/min IV UD PRN; Protocol PRN Reason: EtOH Withdrawal AWSS Score 8,9 Stop: 06/10/22 04:58 Lorazepam 1 mg/ Syringe 1 mls @ 2 mls/min IV UD PRN; Protocol PRN Reason: EtOH Withdrawal AWSS Score 6,7 Stop: 06/10/22 04:58 Lorazepam 3 mg/ Syringe 3 mls @ 2 mls/min IV ONCE PRN; Protocol PRN Reason: EtOH Withdrawal AWSS Score 10 & above Pantoprazole Sodium 40 mg/ (Syringe) 10 mls @ 5 mls/min IV BID RUTH ANN Stop: 06/10/22 08:59 Last Admin: 05/13/22 08:49 Dose: 5 mls/min Nitroglycerin (Nitroglycerin Sl 0.4 Mg/Tab Tab) 0.4 mg SL UD PRN PRN Reason: Chest Pain Stop: 06/10/22 04:58 Ondansetron HCl (Ondansetron Inj 2 Mg/Ml 2 Ml Vial) 4 mg IV Q6H PRN PRN Reason: Nausea Stop: 06/10/22 04:58 Last Admin: 05/11/22 08:31 Dose: 4 mg (1) Acute pancreatitis Acute pancreatitis complication: unspecified Pancreatitis type: unspecified pancreatitis type Qualified Code(s): K85.90 - Acute pancreatitis without necrosis or infection, unspecified
--- NOTE | 2022-05-13 18:32 | Discharge Summary ---
Date of Service May 13, 2022 Admission HPI Per Admitting Provider DICTATED BY:Bony Nicolas MD DATE OF ADMISSION: 05/11/2022. CHIEF COMPLAINT: Abdominal pain, nausea. HISTORY OF PRESENT ILLNESS: A 21-year-old male with no significant past medical history who presents with abdominal pain which started the night before, all over the belly, 8/10 in severity, radiating to the back, associated with some nausea. Pain is also coming to the chest. That is the reason he came here. Imaging studies show some possible pancreatitis. The patient says he drinks alcohol every day since age 15, 16, like two to three beers every night and on the weekends he drinks heavily, about 6 to 12 beers on the weekends. Last Sunday, he drank about 6 beers. Denies any other medical problems, currently resting comfortably, hemodynamically stable. Denies any headache, no neck pain. No blurred visions, no earache, no runny nose, no sore throat, no cough, no shortness of breath. Normal bowel and bladder movements. No swelling in the legs. Admission Exam Per Admitting Provider GENERAL: The patient is of moderate build, not in acute distress. VITAL SIGNS: Temperature 35.6, pulse 66, respiratory rate 20, blood pressure 130/83, and oxygen 97% on room air. HEENT: Pupils equal, round and reactive to light. Oral mucosa moist. NECK: No JVD, no neck masses. CARDIOVASCULAR: S1 and S2 heard. Regular rate and rhythm. No murmur, no gallop. RESPIRATORY SYSTEM: Normal AP diameter. No accessory muscle use. No wheezing or crackles ABDOMEN: Soft, bowel sounds sluggish. Diffuse tenderness, mild guarding, no rigidity, no distention. CENTRAL NERVOUS SYSTEM: Cranial nerves II through XII are grossly intact, nonfocal. EXTREMITIES: No edema, no erythema. Principal Diagnosis Acute pancreatitis likely secondary to use of alcohol, fatty liver/hepatic steatosis on CAT scan, asymptomatic bradycardia Discharge Exam Lying in bed without any acute distress Constitutional average body habitus; not ill appearing Eyes PERRL, conjunctivae normal, anicteric sclerae ENMT external ear and nose normal, oropharynx normal Neck trachea midline, no thyromegaly Respiratory no respiratory distress Auscultation: lungs clear to auscultation bilaterally Cardiovascular Rate/Rhythm: regular rate, regular rhythm and + bradycardic Heart Sounds: normal S1 and normal S2; no murmur Extremities: no edema Gastrointestinal (Abdomen) Inspection/Auscultation: normal bowel sounds; abdomen not distended Percussion/Palpation: abdomen soft; abdomen nontender Neurologic normal touch/pain/proprioception and moves all extremities; no focal motor deficits Psychiatric A+Ox3, euthymic affect Lymphatic no cervical or axillary lymphadenopathy Discharge Data Allergies Allergy/AdvReac Type Severity Reaction Status Date / Time No Known Allergies Allergy Verified 05/11/22 03:09 Consultations 05/11/22 02:50 ED Decision to Admit Stat 05/11/22 08:00 Consult Gastroenterology Routine Ordered Studies 05/11/22 01:30 CT angio chest PE protocol Urgent 05/11/22 01:31 CT abd pelvis wo con Urgent 05/11/22 10:51 US abdomen limited Routine Hospital Course (1) Acute pancreatitis: Presented with a abdominal pain, nausea and vomiting CT scan documented acute pancreatitis which is likely secondary to alcoholism Was on n.p.o. with IV fluid replacement Clinically much better today and has been tolerating clears Will advance diet and if tolerated well likely discharge tomorrow Lipase remains a little high and will recheck Lipase has improved a lot and the patient remains asymptomatic Will be discharged home this afternoon Advised to follow low-fat diet and keep appointment with GI as an outpatient for EUS Electrolyte imbalance Expected secondary acute pancreatitis Will supplement and will be monitored Got supplement (2) Alcoholism: Strongly advised to quit drinking No signs and or symptoms of withdrawal Has been on gabapentin protocol Strongly advised to quit drinking, stop vaping and stop marijuana DVT prophylaxis Lovenox CODE STATUS Full Total Time Total Time Spent Total Time Spent (In Minutes): 35 minutes Discharge Plan Discharge Items Patient Disposition: Home - Self-Care Reason For Visit: ABD PAIN Discharge Diagnosis: Acute pancreatitis likely secondary to use of alcohol, fatty liver/hepatic steatosis on CAT scan, asymptomatic bradycardia Condition on Discharge: Good Activity: Resume your previous activity Non-emergency contact: Primary Care Provider Call non-emergency contact if: you have any medication questions and your symptoms worsen Follow-up/Referrals: Mike Johnson DO [Physician] - (Date & Time 05/16/2022 11:00 AM Provider Mike Johnson DO [facility] ) Diet: Low Fat Addtl Attending Provider Instructions: Please take precautions to avoid fall Strongly advised to quit drinking Recommended against vaping and using marijuana Please give appointments with your healthcare providers Pending Studies at Discharge: No Stand-Alone Forms: [facility], Smoking Cessation Medications and DC Order Prescriptions: New gabapentin 600 mg Tablet 600 mg PO UD 2 Days Qty: 2 0RF Rx Instructions: 1 po this evening and remaining one tomorrow morning folic acid 1 mg tablet 1 mg PO DAILY Qty: 30 0RF thiamine HCl (vitamin B1) 50 mg tablet 50 mg PO DAILY Qty: 30 0RF Continued ibuprofen [Advil] 200 mg Tablet 200 mg PO Q6H PRN (Reason: Pain) Discharge Orders: Discharge Order (Routine); Ordered 05/13/22 Ordered By: Brandon Fraga Admission Data Admit Date/Time: 05/11/22 03:46 Attending Provider: Brandon Fraga Admit Provider: Bony Nicolas Primary Care Provider: PCP,NO Other Providers: Bony Nicolas ; Mirza Bernard ; Denis Willingham ; Darling Zapata ; Ave Garay ; Ana Garcia ; Gay Marmolejo ; Milo Shukla ; Felton Gregg ; Gabriella Knight ; Chong Nix ; Devin Vargas ; Pauline Hood ; Dipti Ordonez ; Leeroy Clay ; Harvinder White ; Jewell Bess ; Tracee Philip ; Elyse Min ; Tiffanie Sher ; Faith Pack ; Thomas Kasper ; Adrián Jim ; Jone Kerns ; Antonina Troncoso ; Chloe Beltrán Jr Other Interventions: Discharge Summary Assessment (RN) Last Done: 05/13/22 13:54
--- NOTE | 2022-05-13 22:44 | Electrocardiogram Report ---
Test Reason : Blood Pressure : / mmHG Vent. Rate : 048 BPM Atrial Rate : 048 BPM P-R Int : 138 ms QRS Dur : 096 ms QT Int : 426 ms P-R-T Axes : 063 085 064 degrees QTc Int : 380 ms Sinus bradycardia Early repolarization Otherwise normal ECG When compared with ECG of 12-MAY-2022 06:34, Vent. rate has decreased BY 24 BPM Confirmed by Agapito Lomeli ([id number]) on 05/13/2022 10:44:11 PM Referred By: REFERRED SELF Confirmed By:Agapito Lomeli
[2022-05-14] MEDS ORDERED: GABAPENTIN 600 MG TAB PO SCH (18:00)
== END 2022-05-13 14:30 | disposition home or self-care (01) | DRG 440 ==
LOC: ED 23:56 → 2N 05-11 03:46

== ENCOUNTER 2024-07-13 10:23 | Inpatient (IN) ==
--- NOTE | 2024-07-13 10:30 | Emergency Department Note ---
Impression & Plan Hypoglycemia ADMIT ED Provider Note HPI: History obtained from patient, EMS report. The patient is a 24-year-old gentleman with history of alcoholism, presents the emergency department with a chief complaint of altered mental status. Patient was found by his mother this morning in an altered state and was difficult to arouse and therefore EMS was contacted. Per EMS report the patient was hypoglycemic in the field in the low 50s and was given dextrose with good improvement in his mentation. He was also noted to be bradycardic in the 20s and was given atropine with good response with heart rate improving to over 100. Patient admits to alcohol use last night that was fairly heavy, denies any other illicit drug use. On arrival here to the ER the patient is alert, ROS: - Per HPI Differential Diagnosis: Polysubstance abuse, alcohol intoxication, seizure, hypoglycemic event, hepatic encephalopathy, alcohol withdrawal, stroke, intracranial hemorrhage, amongst other potential pathologies. *Outpatient medications and allergy history reviewed. PE: General: Alert to verbal stimuli HEENT: Normocephalic, trachea midline Eyes: Extraocular eye movement is intact, no scleral erythema Pulmonary: Clear to auscultation bilaterally, no wheezing Cardio: Regular rate and rhythm GI: Abdomen is soft to palpation : No suprapubic tenderness MSK: No evidence of trauma or malformation of the extremities, no edema Skin: No evidence of rash Neuro: Alert, no focal deficits Psychiatric: Cooperative INDEPENDENT INTERPRETATIONS: case monitor: (As interpreted by myself): - An order was placed for continuous cardiac monitoring - Patient was noted to be in sinus rhythm with a rate of 95 EKG: (As interpreted by myself): Rate: 59 Rhythm: Sinus bradycardia Intervals: Within normal limits ST changes: No ST elevation Time: 1207 Chest x-ray: (As interpreted by myself): No acute disease Interventions provided in ED: -IV fluid bolus, diego hugger blanket Medical Decision Making: IV was established and lab work obtained, patient was placed on clinical research monitor. Lab work shows no leukocytosis, hemoglobin is 18.6, platelet count is normal, venous blood gas was obtained and shows slight acidosis with a pH of 7.25 and a pCO2 elevated at 56, CMP shows no evidence of acute kidney injury, no critical electrolyte abnormalities, ammonia is within normal limits, lactic acid is elevated at 5.2. AST is mildly elevated at 101 and ALT of 82, I suspect this is related to the patient's drinking last night. Bilirubin is also elevated at 2.2, patient does not have any abdominal tenderness on my exam and he has not had any reported vomiting. Low suspicion for acute biliary pathology. Troponin is negative, EKG shows sinus rhythm with a rate of 59 without acute ischemic changes or arrhythmia. Upon review of EKG obtained in the field the patient did have sinus bradycardia with a rate of 28 on initial twelve-lead performed by EMS. This seemed to improve with atropine and the patient's mentation improved with IV dextrose. Procalcitonin is low suggesting against systemic bacterial infection/sepsis, alcohol level obtained here in the ED is elevated at 74.7. On my reassessment the patient is resting comfortably in bed. He was unable to give us a urinalysis sample at the time of admission. He adamantly denies any illicit drug use. CT imaging of the head was obtained that shows no acute process. Unclear source for the patient's symptoms at this time, I feel he should be admitted to the hospital for further management given his hypoglycemic event of unclear origin, altered mental status, and transient bradycardia. Patient's mother at the bedside is in agreement to this plan. I discussed the patient's presentation with the on-call hospitalist for [facility], Dr. Fraga, and the patient was placed for admission in stable condition. Consultants/Discussions held with other healthcare providers: -Hospitalist, Dr. Fraga Disposition discussion held by myself with: -Patient and patient's mother at the bedside Diagnosis: 1. Transient episode of bradycardia, acute 2. Hypoglycemic event, acute 3. Lactic acidosis, acute 4. Alcohol use disorder, acute on chronic 5. Respiratory acidosis, acute, mild Disposition: Admission Guillermo Phillips DO Emergency Medicine Past Med/Surg History Problem List (Updated 07/13/24 @ 12:23 by Guillermo Phillips DO) Hypoglycemia (Acute) Blow out fracture of orbit with routine healing Alcoholism Acute pancreatitis (Acute) Cast discomfort (Acute) Surgical History (Updated 06/28/23 @ 13:32 by Britta Lao RN) H/O esophagogastroduodenoscopy 2021 Family History (Updated 06/28/23 @ 13:33 by Britta Lao, LIZZETTE) Mother Breast cancer Social History (Updated 06/28/23 @ 13:33 by Britta Lao RN) Smoking Status: Current every day smoker Tobacco Type: E-cigarettes / Vaping Second Hand Exposure: No; Do You Dip or Chew Tobacco: No; Hx Alcohol Use: Yes Alcohol type: beer and hard liquor Hx Substance Use: No Preferred Language: Occitan Communication Ability: Effective 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 Beliefs That Will Affect Care: None marital status: Single Current Living Situation: Family current occupational status: employed How many Children do You have: 0 Feels Safe at Home: Yes during the past year weight has: remained stable Assistive Devices: None Allergies Allergies Allergy/AdvReac Type Severity Reaction Status Date / Time No Known Allergies Allergy Verified 06/26/23 16:07 Home Meds Home Medications Medication Instructions Recorded Confirmed ibuprofen 200 mg tablet (Advil) 200 mg PO Q6H PRN Pain 05/11/22 07/13/24 fluoxetine 10 mg capsule 10 mg PO DAILY 07/13/24 07/13/24 propranolol 10 mg tablet 10 mg PO BID PRN anxiety 07/13/24 07/13/24 Results & Data (ED) Vital Signs Vital Signs - 24 hr 07/13/24 10:27 07/13/24 10:29 07/13/24 10:36 Temperature Source Oral Pulse Rate 113 H 117 H 108 H Pulse Rate [Right Apical] Pulse Rhythm Regular Regular Pulse Rhythm [Right Apical] Pulse Strength Normal Pulse Strength [Right Apical] Respiratory Rate 16 16 Respiratory Effort / Characteristics Non-Labored Respiratory Depth Normal Respiratory Pattern Regular Blood Pressure 157/126 H Blood Pressure [Right Arm] Blood Pressure Mean 136 Blood Pressure Mean [Right Arm] Blood Pressure Position Lying Blood Pressure Position [Right Arm] Pulse Oximetry 99 92 Oxygen Delivery Method Room Air Room Air Sepsis Recent Fever Within 48 Hours No Sepsis New/Unexplained Change in Mental Status N/A Sepsis Action Taken by Nursing No Action Required 07/13/24 10:41 07/13/24 11:57 Temperature Source Pulse Rate Pulse Rate [Right Apical] 106 H 71 Pulse Rhythm Pulse Rhythm [Right Apical] Regular Pulse Strength Pulse Strength [Right Apical] Normal Respiratory Rate 16 20 Respiratory Effort / Characteristics Non-Labored Non-Labored Spontaneous Respiratory Depth Normal Normal Respiratory Pattern Regular Regular Blood Pressure Blood Pressure [Right Arm] 122/101 H 131/98 Blood Pressure Mean Blood Pressure Mean [Right Arm] 108 109 Blood Pressure Position Blood Pressure Position [Right Arm] Lying Pulse Oximetry 99 100 Oxygen Delivery Method Room Air Room Air Sepsis Recent Fever Within 48 Hours Sepsis New/Unexplained Change in Mental Status Sepsis Action Taken by Nursing Laboratory Data 07/13/24 10:40 07/13/24 10:40 Lab Results 07/13/24 07/13/24 Range/Units 10:27 10:40 WBC 7.79 (4.8-10.8) K/ul RBC 5.54 (4.70-6.10) M/uL Hgb 18.6 H (14.0-18.0) g/dl Hct 52.2 H (42.0-52.0) % MCV 94.2 (80.0-100.0) fL MCH 33.6 (25.0-34.0) pg MCHC 35.6 (32.0-36.0) g/dL RDW Std Deviation 37.0 (36.4-46.3) fL RDW Coeff of Sabi 10.6 L (11.5-14.5) % Plt Count 222 (130-400) K/uL MPV 8.7 L (9.4-12.4) fL Immature Gran % (Auto) 0.4 % Neut % (Auto) 87.2 % Lymph % (Auto) 8.6 % [place] % (Auto) 3.3 % Eos % (Auto) 0.4 % Baso % (Auto) 0.1 % Neut # (Auto) 6.79 H (1.40-6.50) K/uL Lymph # (Auto) 0.67 L (1.20-3.40) K/uL [place] # (Auto) 0.26 (0.11-0.59) K/uL Eos # (Auto) 0.03 (0.00-0.50) K/uL Baso # (Auto) 0.01 (0.00-0.20) K/uL Immature Gran # (Auto) 0.03 (0.01-0.20) K/uL PT 10.4 (9.0-12.0) Seconds INR 1.0 (0.9-1.1) VBG pH 7.25 L (7.36-7.41) VBG pCO2 56 H (38-50) mmHg VBG pO2 20 mmHg VBG HCO3 25 mmol/L VBG O2 Saturation < 60.0 % VBG Base Excess -3.5 mEq/L Sodium 137 (136-145) mmol/L Potassium 4.5 (3.5-5.1) mmol/L Chloride 94 L (98-107) mmol/L Carbon Dioxide 23 (21-32) mmol/L Anion Gap 20 H (3-11) BUN 14 (6-23) mg/dl Creatinine 1.03 (0.6-1.4) mg/dl Est Cr Clr Drug Dosing 92.7 ml/min eGFR 102.74 BUN/Creatinine Ratio 13.6 (10-20) Glucose 225 H (70-99(Fasting)) mg/dl POC Glucose 217 H (70-99) mg/dl Lactate 5.2 H* (0.4-2.0) mmol/L Calcium 9.9 (8.6-10.3) mg/dl Magnesium 2.1 (1.7-2.4) mg/dl Total Bilirubin 2.2 H (0.2-1.0) mg/dl Direct Bilirubin 0.7 H (0-0.2) mg/dl AST 101 H (13-39) U/L ALT 82 H (7-52) U/L Alkaline Phosphatase 82 (34-104) U/L Ammonia 31.0 (18-72) umol/L Troponin I High Sens 3.4 (0-20) pg/ml Total Protein 9.1 H (6.0-8.3) gm/dl Albumin 5.5 H (3.4-5.0) gm/dl Lipase 31 (11-82) U/L Procalcitonin < 0.02 (0-0.5) ng/ml Ethyl Alcohol mg/dL 74.7 H (<10.0) mg/dl Administered Medications Sodium Chloride (Nss) 1,000 mls @ 999 mls/hr IV .Q1H1M RUTH ANN Stop: 07/13/24 12:30 Last Admin: 07/13/24 10:51 Dose: 999 mls/hr Documented By: BMW Discontinued Medications Sodium Chloride (Nss) 1,000 mls @ 999 mls/hr IV .Q1H1M ONE Stop: 07/13/24 11:53 Last Admin: 07/13/24 11:41 Dose: 999 mls/hr Documented By: EMMANUEL Imaging Data Radiologist's Impression: Chest X-Ray 07/13/24 10:27 XR chest 1V portable CLINICAL HISTORY: Sepsis. COMPARISON STUDY: Chest radiograph and chest CT May 11, 2022. FINDINGS: Lung volumes are normal. Lungs are clear. There is no pneumothorax or pleural effusion. Cardiac size is normal. Mediastinal contours are normal. There is no evidence for pulmonary edema. IMPRESSION: No acute cardiopulmonary findings. ACT 112: Negative or not required by law. Electronically signed by: Garry Altman M.D. 07/13/2024 10:[address] 07/13/24 10:28 CT OF THE HEAD WITHOUT CONTRAST CLINICAL HISTORY: Altered mental status. COMPARISON STUDY: Head CT July 04, 2023. CT DOSE: 580.53 mGy.cm TECHNIQUE: Helical axial images of the head were obtained without IV contrast. Automated exposure control was utilized for the study. A dose lowering technique was utilized adhering to the principles of ALARA. FINDINGS: No acute intracranial hemorrhage, midline shift or mass effect is present. The ventricular system is unremarkable. The basal cisterns are patent. No extra-axial collections are present. There are no findings to suggest acute dural sinus thrombosis or acute territorial infarct. No significant calvarial abnormalities are present. IMPRESSION: No acute intracranial findings. ACT 112: Negative or not required by law. Electronically signed by: Garry Altman M.D. 07/13/2024 11:48 AM Discharge Plan Visit Data Chief Complaint: Hypoglycemia Stated Complaint: HYPOGLYCEMIA, BRADYCARDIA, LETHARGIC ED Provider: Guillermo Phillips Discharge Problem: Hypoglycemia Forms Stand Alone Forms: [facility] Prescriptions Prescriptions: No Action ibuprofen [Advil] 200 mg Tablet 200 mg PO Q6H PRN (Reason: Pain) propranolol 10 mg tablet 10 mg PO BID PRN (Reason: anxiety ) fluoxetine 10 mg capsule 10 mg PO DAILY Referrals Referrals: PCP,NO [Primary Care Provider] -
[2024-07-13] MEDS: SODIUM CHLORIDE 0.9% 1,000 ML IV SCH (10:51)
[2024-07-13 10:52] LABS: Base Excess VBG -3.5 mEq/L; HCO3 VBG 25 mmol/L; Oxygen Saturation VBG < 60.0 %; PCO2 VBG 56 mmHg (38-50); PO2 VBG 20 mmHg; pH VBG 7.25 (7.36-7.41)
--- NOTE | 2024-07-13 10:59 | XRay Report ---
XR chest 1V portable CLINICAL HISTORY: Sepsis. COMPARISON STUDY: Chest radiograph and chest CT May 11, 2022. FINDINGS: Lung volumes are normal. Lungs are clear. There is no pneumothorax or pleural effusion. Car diac size is normal. Mediastinal contours are normal. There is no evidence for pulmonary edema. IMPRESSION: No acute cardiopulmonary findings. ACT 112: Negative or not required by law. Electronically signed by: Garry Altman M.D. 07/13/2024 10:58 AM
[2024-07-13 11:02] LABS: Basophils # (auto) 0.01 K/uL (0.00-0.20); Basophils % (auto) 0.1 %; Eosinophils # (auto) 0.03 K/uL (0.00-0.50); Eosinophils % (auto) 0.4 %; Hematocrit (blood only) 52.2 % (42.0-52.0); Hemoglobin 18.6 g/dl (14.0-18.0); Immature Granulocytes # (auto) 0.03 K/uL (0.01-0.20); Immature Granulocytes % (auto) 0.4 %; Lymphocytes # (auto) 0.67 K/uL (1.20-3.40); Lymphocytes % (auto) 8.6 %; Mean Corpuscular Hemoglobin 33.6 pg (25.0-34.0); Mean Corpuscular Hgb Conc 35.6 g/dL (32.0-36.0); Mean Corpuscular Volume 94.2 fL (80.0-100.0); Mean Platelet Volume 8.7 fL (9.4-12.4); Monocytes # (auto) 0.26 K/uL (0.11-0.59); Monocytes % (auto) 3.3 %; Neutrophils # (auto) 6.79 K/uL (1.40-6.50); Neutrophils % (auto) 87.2 %; Platelet Count 222 K/uL (130-400); RDW Coefficient of Variation 10.6 % (11.5-14.5); Red Blood Count 5.54 M/uL (4.70-6.10); White Blood Count 7.79 K/ul (4.8-10.8)
[2024-07-13 11:22] LABS: Albumin Level 5.5 gm/dl (3.4-5.0); BUN Creatinine Ratio 13.6 (10-20); Bilirubin Direct 0.7 mg/dl (0-0.2); Bilirubin,Total 2.2 mg/dl (0.2-1.0); Calcium 9.9 mg/dl (8.6-10.3); Creatinine Clr Calc Pharmacy 92.7 ml/min; Magnesium 2.1 mg/dl (1.7-2.4); Potassium 4.5 mmol/L (3.5-5.1); Total Protein 9.1 gm/dl (6.0-8.3)
[2024-07-13 11:28] LABS: Troponin I High Sensitivity 3.4 pg/ml (0-20)
[2024-07-13 11:29] LABS: Prothrombin Time 10.4 Seconds (9.0-12.0)
[2024-07-13] MEDS: SODIUM CHLORIDE 0.9% 1,000 ML IV ONE (11:41)
--- NOTE | 2024-07-13 11:57 | CT Scan Report ---
CT OF THE HEAD WITHOUT CONTRAST CLINICAL HISTORY: Altered mental status. COMPARISON STUDY: Head CT July 04, 2023. CT DOSE: 580.53 mGy.cm TECHNIQUE: Helical axial images of the head were obtained without IV contrast. Automated exposure con trol was utilized for the study. A dose lowering technique was utilized adhering to the principles o f ALARA. FINDINGS: No acute intracranial hemorrhage, midline shift or mass effect is present. The ventricular system is unremarkable. The basal cisterns are patent. No extra-axial collections are present. There are no findings to suggest acute dural sinus thrombosis or acute territorial infarct. No significant calvarial abnormalities are present. IMPRESSION: No acute intracranial findings. ACT 112: Negative or not required by law. Electronically signed by: Garry Altman M.D. 07/13/2024 11:48 AM
[2024-07-13 13:06] LABS: Appearance Urine Clear (Clear); Bacteria Urine Automated None Seen (None Seen); Bilirubin Urine Negative (Negative); Blood Urine Negative (Negative); Color Urine Yellow; Epithelial Cell Urine Auto 0-2 /hpf (0-2); Glucose Urine UA 2+ (Negative); Ketones Urine 2+ (Negative); Leukocyte Esterase Urine Negative (Negative); Mucus Urine Present (None Prsent); Nitrite Urine Negative (Negative); Protein Urine 2+ (Negative); RBC Urine Automated 0-2 /hpf (0-2); Specific Gravity Urine 1.014 (1.000-1.030); Urobilinogen Urine Negative (Negative); WBC Urine Automated 0-5 /hpf (0-5); pH Urine 5.5 (4.5-7.5)
--- NOTE | 2024-07-13 13:08 | History & Physical Report ---
Date of Service July 13, 2024 Assessment & Plan (1) Change in mental status: Plan: The patient called her mom this morning complaining that he is very weak lethargic and cannot get out of bed EMS found him to be in mild confusion with sweating,Hypoglycemic with blood sugar of 50, bradycardic at around heart rate 20 and also shaky Denies any intravenous drug abuse. Uses weed occasionally and has been vaping. last weed used in about 2 to 3 weeks before Urine tox screen is pending Received atropine and also intravenous dextrose in route and the condition improved No more confusion during examination Also noted to be hypothermic with temperature of 36 C and has been put on Hans hugger and he has been improving Will observe in med/telemetry unit Elevated lactate Could be secondary to low blood pressure and also bradycardia Received adequate amounts of intravenous fluid and repeat lactate has been improving Doubt any sepsis Hypothermia Remains borderline low at 36.5 Beer hugger is on Will monitor (2) Hypoglycemia: Plan: He was found to be sweaty and noted to have a blood sugar of 50 Received intravenous dextrose and the blood sugar has been coming up Hyperglycemia could be secondary to use of alcohol Denies any insulin and/or hypoglycemic agents May be contributed by low food intake Will observe (3) Bradycardia: Plan: Noted to be bradycardia at heart rate around 20s by the EMS No significant respiratory depression Improved with IV atropine and the heart rate is maintaining since admission (4) Alcoholism: Plan: Drinks about 1 pint of hard liquor every day Not sure if he has been drinking more than that Alcohol abuse minimally elevated but has not been intoxication Will observe for withdrawal Has been put on Gabapentin withdrawal protocol Elevated liver enzymes Secondary to alcoholism Will monitor LFTs (5) Anxiety and depression: Plan: Has been on Prozac and will be continued He also takes propranolol 10 mg twice daily as needed for anxiety Will hold that medicine for now since noted to have bradycardia Plan DVT prophylaxis SCDs for now and ambulation CODE STATUS full History of Present Illness Chief Complaint: Cold, shaky and weakness this morning Primary Care Provider: NO PCP Is a 24 years old male with significant past medical history of anxiety/depression and also history of alcoholism apparently called his mom this morning that he felt very weak lethargic sweaty and could not get out of bed. He drank about 1 pint of hard liquor throughout the day yesterday and also has been complaining of occasional dizziness while ambulating for the last few days. Denies any fever and or chills, no cough or phlegm, no abdominal pain nausea and or vomiting and does not have any numbness or tingling involving any of the extremities. He uses weight inhaler occasionally and last time he used that in about 2 to 3 weeks ago and he vapes regularly. He denies any IV drug use. He was noted to be sweaty and bradycardic at heart rate 20s and also blood sugar of 50 by the EM S. He was given IV dextrose and also given atropine and the heart rate went up to more than 100 and blood sugar improved when he was brought into the emergency room. Noted to be hypothermic but otherwise hemodynamically stable. His lactate was elevated otherwise other labs are unremarkable including CT of the head. He will be admitted to med/telemetry unit for continuatio I just came back may have somethingn of care. Allergies Allergy/AdvReac Type Severity Reaction Status Date / Time No Known Allergies Allergy Verified 06/26/23 16:07 Home Medications Medication Instructions Recorded Confirmed Type ibuprofen 200 mg tablet (Advil) 200 mg PO Q6H PRN Pain 05/11/22 07/13/24 History fluoxetine 10 mg capsule 10 mg PO DAILY 07/13/24 07/13/24 History propranolol 10 mg tablet 10 mg PO BID PRN anxiety 07/13/24 07/13/24 History Past Med/Surg History Problem List (Updated 07/13/24 @ 13:40 by Brandon Fraga MD) Anxiety and depression Bradycardia Change in mental status Hypoglycemia (Acute) Blow out fracture of orbit with routine healing Alcoholism Acute pancreatitis (Acute) Cast discomfort (Acute) Surgical History (Updated 06/28/23 @ 13:32 by Britta Lao RN) H/O esophagogastroduodenoscopy 2021 Family History (Updated 06/28/23 @ 13:33 by Britta Lao RN) Mother Breast cancer Social History (Updated 06/28/23 @ 13:33 by Britta Lao RN) Smoking Status: Current every day smoker Tobacco Type: E-cigarettes / Vaping Second Hand Exposure: No; Do You Dip or Chew Tobacco: No; Hx Alcohol Use: Yes Alcohol type: beer and hard liquor Hx Substance Use: Yes Last Used Substance: Days (ago) Preferred Language: Niuean Communication Ability: Effective 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 Beliefs That Will Affect Care: None marital status: Single Current Living Situation: Other Current Living Situation Comment: roommate current occupational status: employed How many Children do You have: 0 Feels Safe at Home: Yes during the past year weight has: remained stable Assistive Devices: None Review of Systems Review of Systems: All systems reviewed and are unremarkable except as noted below Physical Exam Physical Exam: Lying in bed with Hans hugger on board with some shakes but no other distress Constitutional: + ill appearing and average body habitus Eyes: PERRL, conjunctivae normal, anicteric sclerae ENMT: external ear and nose normal, oropharynx normal Neck: trachea midline, no thyromegaly Respiratory: no respiratory distress Auscultation: lungs clear to auscultation bilaterally Cardiovascular: Rate/Rhythm: regular rate and regular rhythm; not bradycardic Heart Sounds: normal S1 and normal S2; no murmur Extremities: no edema Gastrointestinal (Abdomen): Inspection/Auscultation: normal bowel sounds; abdomen not distended Percussion/Palpation: abdomen soft; abdomen nontender Musculoskeletal: No acute arthritis involving any of the joint Neurologic: normal touch/pain/proprioception and moves all extremities; no focal motor deficits, no meningeal signs and not confused Lymphatic: no cervical or axillary lymphadenopathy Results & Data Results & Data Vital Signs (Past 12 Hours) Vital Signs Pulse Pulse Resp BP BP Pulse Ox O2 Del Method 07/13/24 11:57 71 20 131/98 100 Room Air 07/13/24 10:41 106 H 16 122/101 H 99 Room Air 07/13/24 10:36 108 H 16 92 Room Air 07/13/24 10:29 117 H 07/13/24 10:27 113 H 16 157/126 H 99 Room Air Laboratory Results Short CBC 07/13/24 Range/Units 10:40 WBC 7.79 (4.8-10.8) K/ul Hgb 18.6 H (14.0-18.0) g/dl Hct 52.2 H (42.0-52.0) % Plt Count 222 (130-400) K/uL BMP 07/13/24 10:40 Sodium 137 Potassium 4.5 Chloride 94 L Carbon Dioxide 23 BUN 14 Creatinine 1.03 Glucose 225 H Calcium 9.9 Liver Function 07/13/24 Range/Units 10:40 Total Bilirubin 2.2 H (0.2-1.0) mg/dl Direct Bilirubin 0.7 H (0-0.2) mg/dl AST 101 H (13-39) U/L ALT 82 H (7-52) U/L Alkaline Phosphatase 82 (34-104) U/L Albumin 5.5 H (3.4-5.0) gm/dl Urine 11/24/24 Range/Units 12:47 Urine Color Yellow Urine Appearance Clear (Clear) Urine pH 5.5 (4.5-7.5) Ur Specific [place] 1.014 (1.000-1.030) Urine Protein 2+ H (Negative) Urine Glucose (UA) 2+ H (Negative) Code Status & VTE Plan VTE Prophylaxis Plan VTE Prophylaxis will be ordered: Yes
[2024-07-13 13:21] LABS: Amphetamines+Metham, Urine Neg (Neg); Barbiturates, Urine Neg (Neg); Benzodiazepine, Urine Neg (Neg); Cocaine, Urine Neg (Neg); Fentanyl, Urine Neg (Neg); MDMA (Ecstacy), Urine Neg (Neg); Marijuana, Urine Pos (Neg); Methadone, Urine Neg (Neg); Opiate, Urine Neg (Neg); Phencyclidine, Urine Neg (Neg)
--- NOTE | 2024-07-13 15:10 | Electrocardiogram Report ---
Test Reason : Blood Pressure : */* mmHG Vent. Rate : 119 BPM Atrial Rate : 119 BPM P-R Int : 116 ms QRS Dur : 80 ms QT Int : 350 ms P-R-T Axes : 57 69 49 degrees QTcB Int : 492 ms Sinus tachycardia Cannot rule out Inferior infarct , age undetermined Abnormal ECG When compared with ECG of 13-May-2022 05:42, Vent. rate has increased by [address] less elevated in Inferior leads ST depression has replaced ST elevation in Anterior leads Confirmed by Olvin Enciso ([id number]) on 07/13/2024 3:10:11 PM Referred By: Confirmed By: Olvin Enciso
[2024-07-13] MEDS ORDERED: GABAPENTIN 600MG ALCOHOL WITHDRAWAL LOAD PO STA (15:36)
[2024-07-13] MEDS: ONDANSETRON INJ 2 MG/ML 2 ML VIAL IV PRN (16:05)
[2024-07-13] MEDS: FLUoxetine HCL 10 MG CAP PO STA (16:05)
[2024-07-13] MEDS: GABAPENTIN 600 MG TAB PO ONE (16:28)
[2024-07-13] MEDS: FOLIC ACID 1 MG in SYRINGE 9.8 ML IV SCH (16:28)
[2024-07-13] MEDS: LORazepam 2 MG/1 ML VIAL IV PRN ×2 (16:29→21:39)
--- NOTE | 2024-07-13 17:14 | Electrocardiogram Report ---
Test Reason : Blood Pressure : */* mmHG Vent. Rate : 59 BPM Atrial Rate : 59 BPM P-R Int : 142 ms QRS Dur : 90 ms QT Int : 456 ms P-R-T Axes : 59 69 66 degrees QTcB Int : 451 ms Sinus bradycardia with sinus arrhythmia Early repolarization Otherwise normal ECG When compared with ECG of 13-Jul-2024 10:26, Vent. rate has decreased by [address] more elevated in Inferior leads ST elevation has replaced ST depression in Anterior leads Confirmed by Olvin Enciso ([id number]) on 07/13/2024 5:13:49 PM Referred By: REFERRED SELF Confirmed By: Olvin Enciso
[2024-07-13] MEDS: NICOTINE 14 MG/24 HR PATCH TD SCH (19:25)
[2024-07-13] MEDS ORDERED: Ativan IV Alcohol Withdrawal--Active Protocol IV PRN (21:00)
[2024-07-13] MEDS ORDERED: LORazepam 2 MG/1 ML VIAL IV PRN (21:00)
[2024-07-13] MEDS: GABAPENTIN 100 MG CAP PO SCH (21:39)
[2024-07-13] MEDS: MELATONIN 3 MG TAB PO PRN (23:59)
[2024-07-14] MEDS: NICOTINE 21 MG/24 HR TDSY TD SCH (00:33)
[2024-07-14] MEDS: ACETAMINOPHEN 500 MG TAB PO PRN (07:14)
[2024-07-14] MEDS ORDERED: PROPRANOLOL HCL 10 MG TAB PO PRN (07:21)
[2024-07-14] MEDS: LORazepam 1 MG TAB PO STA (07:28)
[2024-07-14] MEDS: THIAMINE HCL 100 MG in SYRINGE 9 ML IV SCH (08:15)
[2024-07-14] MEDS: FLUoxetine HCL 10 MG CAP PO SCH (09:16)
[2024-07-14 09:30] LABS: Hematocrit (blood only) 42.7 % (42.0-52.0); Hemoglobin 15.1 g/dl (14.0-18.0); Mean Corpuscular Hemoglobin 33.3 pg (25.0-34.0); Mean Corpuscular Hgb Conc 35.4 g/dL (32.0-36.0); Mean Corpuscular Volume 94.1 fL (80.0-100.0); Mean Platelet Volume 8.7 fL (9.4-12.4); Platelet Count 189 K/uL (130-400); RDW Coefficient of Variation 10.6 % (11.5-14.5); RDW Standard Deviation 36.3 fL (36.4-46.3); Red Blood Count 4.54 M/uL (4.70-6.10); White Blood Count 7.39 K/ul (4.8-10.8)
[2024-07-14 09:34] LABS: Albumin Globulin Ratio 1.5 (0.9-2); Albumin Level 4.1 gm/dl (3.4-5.0); BUN Creatinine Ratio 10.3 (10-20); Bilirubin,Total 1.7 mg/dl (0.2-1.0); Calcium 8.7 mg/dl (8.6-10.3); Creatinine Clr Calc Pharmacy 99.1 ml/min; Globulin 2.7 gm/dl (2.5-4.0); Magnesium 2.1 mg/dl (1.7-2.4); Phosphorus 2.5 mg/dl (2.5-4.9); Potassium 3.9 mmol/L (3.5-5.1); Total Protein 6.8 gm/dl (6.0-8.3)
[2024-07-14 09:36] LABS: Prothrombin Time 11.3 Seconds (9.0-12.0)
--- NOTE | 2024-07-14 11:03 | Hospitalist Progress Note ---
Date of Service July 14, 2024 Assessment & Plan (1) Alcohol abuse: (2) Alcohol withdrawal: (3) Change in mental status: (4) Hypoglycemia: (5) Bradycardia: (6) Anxiety and depression: Plan 24 year old man with significant alcohol use, anxiety who presented with AMS and found to be bradycardic and hypoglycemic Got atropine and dextrose enroute to hospital On presentation, lab was notable for AGAP 20, lactate 5.2, Tbil 2.2, AST 101, ALT 82 Alcohol level was 74.7 on admission UTox: + marijuana Alcohol abuse Alcohol withdrawal Bradycardia Hypoglycemia likely due to alcohol abuse Reviewed EKG on admission. Repeat EKG Troponin is normal. Denied chest pain/SOB Elevated lactate on admission, now normalized Low suspicion for sepsis based on history and available findings BCx negative so far Continue Alcohol withdrawal protocol Counseled patient regarding alcohol cessation. He is open to quit Behavioral liason c/s CM c/s to provide more resources Get Liver USS Added nicotine gum prn per patient's preference. Already has nicotine patch Continue home prozac Stop propranolol in view of bradycardia DVT prophylaxis SCDs for now and ambulation CODE STATUS Full Updated mother at bedside I spent a total of 55 minutes coordinating, documenting and providing care for this patient excluding time spent in performance of separately billed services Admission and Anticipated Discharge Date Admission Date: July 13, 2024 Subjective Patient seen and examined Reports he had been drinking 1 pint of liquor daily, vapes, occasionally smokes marijuana. Denied use of cocaine/heroin/meth Reports some nausea and poor oral intake in the past few days due to his anxiety Reports he was recently started on prozac about 2 weeks which has helped with his anxiety Reported he felt ill, chilly and passed out for unknown time yesterday before calling his Mom who called EMS Reports his baseline HR is usually around 55 Currently reports some withdrawal with tactile hallucination (crawling bug feeling) and anxiety Denied any other complaints on ROS Physical Exam Constitutional: + well hydrated; no acute distress Eyes: PERRL, conjunctivae normal, anicteric sclerae ENMT: external ear and nose normal, oropharynx normal Respiratory: normal respiratory effort, lungs clear to auscultation Cardiovascular: Rate/Rhythm: regular rate and regular rhythm Gastrointestinal (Abdomen): normal bowel sounds, soft, nontender, no hepatosplenomegaly Musculoskeletal: no cyanosis or clubbing, extremities motor strength 5/5 Neurologic: PERRL, EOMI, accommodation nl, no face palsy, no dysarthria Psychiatric: AOX3 Results & Data Results & Data Vital Signs (Past 12 Hours) Vital Signs Temp Pulse Pulse Resp BP Pulse Ox O2 Del Method 07/14/24 10:50 37 C 79 16 117/69 97 Room Air 07/14/24 07:00 36.7 C 57 L 16 115/74 95 Room Air 07/14/24 06:56 46 L 07/14/24 03:33 36.7 C 49 L 16 100/58 L 97 Room Air Laboratory Results Abnormal lab results 07/13/24 07/13/24 07/14/24 Range/Units 12:30 12:47 08:51 RBC 4.54 L (4.70-6.10) M/uL RDW Std Deviation 36.3 L (36.4-46.3) fL RDW Coeff of Sabi 10.6 L (11.5-14.5) % MPV 8.7 L (9.4-12.4) fL Lactate 2.9 H* (0.4-2.0) mmol/L Total Bilirubin 1.7 H (0.2-1.0) mg/dl AST 63 H (13-39) U/L ALT 54 H (7-52) U/L Urine Protein 2+ H (Negative) Urine Glucose (UA) 2+ H (Negative) Urine Ketones 2+ H (Negative) U Hyaline Cast (Auto) 11-20 H (0-2) /lpf Urine Mucus Present A (None Prsent) U Marijuana (THC) Screen Pos H (Neg)
[2024-07-14] MEDS ORDERED: diazePAM 5 MG/ML 10ML VIAL IV ONE (12:50)
[2024-07-14] MEDS: LORazepam 2 MG/1 ML VIAL IV ONE (13:33)
[2024-07-14] MEDS: NICOTINE POLACRILEX 2 MG GUM MT PRN (14:38)
--- NOTE | 2024-07-14 16:07 | Ultrasound Report ---
US liver CLINICAL HISTORY: Elevated LFT. Alcohol use COMPARISON STUDY: CT of the abdomen and pelvis and right upper quadrant ultrasound May 11 2. FINDINGS: Hepatic echogenicity is mildly increased. There is trace perihepatic fluid. Main portal vei n is patent. No hepatic lesions are identified. There is no biliary ductal dilatation. There are no g allstones. Small amount of sludge within the gallbladder is noted. There is trace pericholecystic flu id. No sonographic Baltazar sign was elicited. The pancreas is obscured by overlying bowel gas. There i s no right hydronephrosis. IMPRESSION: 1. No gallstones or biliary ductal dilatation. Small amount of sludge within the gallbladder. No evid ence for acute cholecystitis. 2. Mild increased hepatic echogenicity. This favors a hepatic steatosis. Trace perihepatic fluid. 3. Obscured pancreas. ACT 112: Negative or not required by law. Electronically signed by: Garry Altman M.D. 07/14/2024 4:06 PM
[2024-07-14] MEDS: LORazepam 2 MG/1 ML VIAL IV PRN (17:29)
[2024-07-14] MEDS: hydrOXYzine HCl 25 MG TAB PO STA ×2 (19:21→20:41)
[2024-07-15] MEDS: GABAPENTIN 600 MG TAB PO SCH (03:58)
[2024-07-15 09:32] LABS: Hematocrit (blood only) 42.4 % (42.0-52.0); Hemoglobin 15.1 g/dl (14.0-18.0); Mean Corpuscular Hemoglobin 33.2 pg (25.0-34.0); Mean Corpuscular Hgb Conc 35.6 g/dL (32.0-36.0); Mean Corpuscular Volume 93.2 fL (80.0-100.0); Mean Platelet Volume 8.6 fL (9.4-12.4); Platelet Count 169 K/uL (130-400); RDW Coefficient of Variation 10.7 % (11.5-14.5); RDW Standard Deviation 36.4 fL (36.4-46.3); Red Blood Count 4.55 M/uL (4.70-6.10); White Blood Count 6.18 K/ul (4.8-10.8)
[2024-07-15 10:12] LABS: Albumin Globulin Ratio 1.5 (0.9-2); Albumin Level 4.3 gm/dl (3.4-5.0); BUN Creatinine Ratio 9.1 (10-20); Bilirubin,Total 0.9 mg/dl (0.2-1.0); Calcium 9.3 mg/dl (8.6-10.3); Creatinine Clr Calc Pharmacy 111.9 ml/min; Globulin 2.8 gm/dl (2.5-4.0); Magnesium 2.2 mg/dl (1.7-2.4); Potassium 3.6 mmol/L (3.5-5.1); Total Protein 7.1 gm/dl (6.0-8.3)
--- NOTE | 2024-07-15 11:04 | Hospitalist Progress Note ---
Date of Service July 15, 2024 Assessment & Plan (1) Alcohol abuse: (2) Alcohol withdrawal: (3) Change in mental status: (4) Hypoglycemia: (5) Bradycardia: (6) Anxiety and depression: Plan 24 year old man with significant alcohol use, anxiety who presented with AMS and found to be bradycardic and hypoglycemic Got atropine and dextrose enroute to hospital On presentation, lab was notable for AGAP 20, lactate 5.2, Tbil 2.2, AST 101, ALT 82 Alcohol level was 74.7 on admission UTox: + marijuana Alcohol abuse Alcohol withdrawal Bradycardia Hypoglycemia likely due to alcohol abuse Reviewed EKG on admission. Repeat EKG Troponin is normal. Denied chest pain/SOB Elevated lactate on admission, now normalized Sepsis ruled out Continue Alcohol withdrawal protocol Required some extra ativan yesterday Provided more alcohol cessation counseling Replete hypophosphatemia Continue po folic/thiamine Continue home prozac Stop propranolol in view of bradycardia even on dc DVT prophylaxis SCDs for now and ambulation CODE STATUS Full Possible dc tomorrow I spent a total of 50 minutes coordinating, documenting and providing care for this patient excluding time spent in performance of separately billed services Admission and Anticipated Discharge Date Admission Date: July 13, 2024 Subjective Patient seen and examined Reports feeling better today Denied any new complaints Physical Exam Constitutional: + well hydrated; no acute distress Eyes: PERRL, conjunctivae normal, anicteric sclerae ENMT: external ear and nose normal, oropharynx normal Respiratory: normal respiratory effort, lungs clear to auscultation Cardiovascular: Rate/Rhythm: regular rate and regular rhythm Gastrointestinal (Abdomen): normal bowel sounds, soft, nontender, no hepatosplenomegaly Musculoskeletal: no cyanosis or clubbing, extremities motor strength 5/5 Neurologic: PERRL, EOMI, accommodation nl, no face palsy, no dysarthria Psychiatric: A+Ox3, euthymic affect Results & Data Results & Data Vital Signs (Past 12 Hours) Vital Signs Temp Pulse Resp BP Pulse Ox O2 Del Method 07/15/24 07:29 36.8 C 64 18 114/70 94 Room Air 07/15/24 04:02 36.2 C L 54 L 12 107/66 97 Room Air Laboratory Results Abnormal lab results 07/14/24 07/15/24 Range/Units 22:51 09:11 RBC 4.55 L (4.70-6.10) M/uL RDW Coeff of Sabi 10.7 L (11.5-14.5) % MPV 8.6 L (9.4-12.4) fL BUN/Creatinine Ratio 9.1 L (10-20) Glucose 139 H (70-99(Fasting)) mg/dl POC Glucose 106 H (70-99) mg/dl Phosphorus 2.0 L (2.5-4.9) mg/dl AST 45 H (13-39) U/L
[2024-07-15] MEDS: POT PHOSPHATE MONOBASIC W/ SOD TAB PO SCH (13:19)
--- NOTE | 2024-07-15 15:43 | Electrocardiogram Report ---
Test Reason : Blood Pressure : */* mmHG Vent. Rate : 62 BPM Atrial Rate : 62 BPM P-R Int : 140 ms QRS Dur : 98 ms QT Int : 424 ms P-R-T Axes : 61 73 64 degrees QTcB Int : 430 ms Normal sinus rhythm with sinus arrhythmia Early repolarization Normal ECG When compared with ECG of 13-Jul-2024 12:07, No significant change was found Confirmed by Olvin Enciso ([id number]) on 07/15/2024 3:43:45 PM Referred By: REFERRED SELF Confirmed By: Olvin Enciso
[2024-07-15] MEDS: LORazepam 0.5 MG TAB PO STA (20:44)
[2024-07-16] MEDS: GABAPENTIN 400 MG CAP PO SCH (03:46)
[2024-07-16] MEDS: LORazepam 0.5 MG TAB PO STA (04:01)
[2024-07-16 06:11] LABS: Hematocrit (blood only) 41.2 % (42.0-52.0); Hemoglobin 14.8 g/dl (14.0-18.0); Mean Corpuscular Hemoglobin 33.4 pg (25.0-34.0); Mean Corpuscular Hgb Conc 35.9 g/dL (32.0-36.0); Mean Platelet Volume 8.7 fL (9.4-12.4); Platelet Count 173 K/uL (130-400); RDW Coefficient of Variation 10.6 % (11.5-14.5); Red Blood Count 4.43 M/uL (4.70-6.10); White Blood Count 5.62 K/ul (4.8-10.8)
[2024-07-16 06:22] LABS: Albumin Globulin Ratio 1.6 (0.9-2); Albumin Level 4.3 gm/dl (3.4-5.0); BUN Creatinine Ratio 9.1 (10-20); Bilirubin,Total 1.1 mg/dl (0.2-1.0); Calcium 9.3 mg/dl (8.6-10.3); Creatinine Clr Calc Pharmacy 97.9 ml/min; Globulin 2.7 gm/dl (2.5-4.0); Magnesium 2.2 mg/dl (1.7-2.4); Phosphorus 4.2 mg/dl (2.5-4.9); Potassium 3.7 mmol/L (3.5-5.1)
[2024-07-16 07:38] VITALS: BP 123/76; PULSE 60; RESP 16; TEMP 97.7; O2SAT 100
[2024-07-16] MEDS: INFLUENZA VACC TS2024-25(6m+)/PF (IIV3) 0.5mL Syr IM ONE (08:48)
[2024-07-16] MEDS: FOLIC ACID 1 MG TAB PO SCH (09:05)
[2024-07-16] MEDS: THIAMINE HCL 100 MG TAB PO SCH (10:20)
--- NOTE | 2024-07-16 10:35 | Discharge Summary ---
Discharge Summary Date of Service July 16, 2024 Principal Dx & Hospital Course #1 = Principal Diagnosis (1) Alcohol abuse: (2) Alcohol withdrawal: (3) Change in mental status: (4) Hypoglycemia: (5) Bradycardia: (6) Anxiety and depression: Plan 24 year old man with significant alcohol use, anxiety who presented with AMS and found to be bradycardic and hypoglycemic Got atropine and dextrose enroute to the hospital. On presentation, labs were notable for Anion Gap 20, lactate 5.2, Tbili 2.2, AST 101, ALT 82 Alcohol level was 74.7 on admission UTox: + marijuana Alcohol abuse Alcohol withdrawal Elevated Liver enzymes Alcohol level of 74.7 on admission Liver enzymes elevated but have since downtrended Abdominal ultrasound with noted hepatic steatosis, gallbladder sludge but no signs of acute cholecystitis Treated alcohol withdrawal with AWSS protocol with gabapentin and Ativan On the day of discharge patient was stable. Noted that he no longer had tremors. Was alert oriented x 3. Heart rate was within normal limits, vitals otherwise stable as well. He was discharged with thiamine and folic acid supplements. Encourage alcohol cessation. Please ensure close PCP follow-up after discharge. Hypophosphatemia Repleted as needed Bradycardia Reportedly patient presented with heart rate in the 20s en route to the hospital. He was given atropine at home propranolol was discontinued. EKG on admission noting HR of 59, sinus bradycardia with sinus arrhythmia Patient remained asymptomatic Heart rates improved during his hospitalization and was 60 on discharge. Propranolol discontinued on discharge Close PCP follow-up. Hypoglycemia Patient was reportedly hypoglycemic when EMS arrived at home. Was given dextrose with noted improvement in glucose levels. Glucose levels remained within normal limits during hospitalization PCP follow-up Elevated Lactic Acid Elevated lactate on admission, now normalized Anion gap of 20 on admission, improved to 7 VBG with pH of 7.25, pCO2 56 and HCO3 of 25 Sepsis ruled out Resolved on discharge Mood Disorder Continue home prozac Propranolol discontinued in setting of bradycardia PCP follow-up Notes For Next Care Provider Please ensure follow-up for mood disorder as propranolol was discontinued in the setting of bradycardia. Please encourage alcohol cessation Medication Changes From Visit Propranolol discontinued in setting of bradycardia Admission HPI Per Admitting Provider Is a 24 years old male with significant past medical history of anxiety/depression and also history of alcoholism apparently called his mom this morning that he felt very weak lethargic sweaty and could not get out of bed. He drank about 1 pint of hard liquor throughout the day yesterday and also has been complaining of occasional dizziness while ambulating for the last few days. Denies any fever and or chills, no cough or phlegm, no abdominal pain nausea and or vomiting and does not have any numbness or tingling involving any of the extremities. He uses weight inhaler occasionally and last time he used that in about 2 to 3 weeks ago and he vapes regularly. He denies any IV drug use. He was noted to be sweaty and bradycardic at heart rate 20s and also blood sugar of 50 by the EM S. He was given IV dextrose and also given atropine and the heart rate went up to more than 100 and blood sugar improved when he was brought into the emergency room. Noted to be hypothermic but otherwise hemodynamically stable. His lactate was elevated otherwise other labs are unremarkable including CT of the head. He will be admitted to med/telemetry unit for continuatio I just came back may have somethingn of care. Admission Exam Per Admitting Provider Physical Exam: Lying in bed with Hans hugger on board with some shakes but no other distress Constitutional: + ill appearing and average body habitus Eyes: PERRL, conjunctivae normal, anicteric sclerae ENMT: external ear and nose normal, oropharynx normal Neck: trachea midline, no thyromegaly Respiratory: no respiratory distress Auscultation: lungs clear to auscultation bilaterally Cardiovascular: Rate/Rhythm: regular rate and regular rhythm; not bradycardic Heart Sounds: normal S1 and normal S2; no murmur Extremities: no edema Gastrointestinal (Abdomen): Inspection/Auscultation: normal bowel sounds; abdomen not distended Percussion/Palpation: abdomen soft; abdomen nontender Musculoskeletal: No acute arthritis involving any of the joint Neurologic: normal touch/pain/proprioception and moves all extremities; no focal motor deficits, no meningeal signs and not confused Lymphatic: no cervical or axillary lymphadenopathy Discharge Exam General: Alert, oriented. No acute distress Skin: No noted rashes or bruises Psych: Appropriate mood and affect Neuro: No noted tremors HEENT: NC/AT CV: RRR Resp: Breath sounds clear bilaterally, no increased effort of breathing Abdomen: Soft, nontender Extremities: No edema in lower extremities bilaterally Updated Medication List Medication Instructions Recorded Confirmed Type ibuprofen 200 mg tablet (Advil) 200 mg PO Q6H PRN Pain 05/11/22 07/13/24 History fluoxetine 10 mg capsule 10 mg PO DAILY 07/13/24 07/13/24 History folic acid 1 mg tablet 1 mg PO QAM #30 tabs 07/16/24 Rx thiamine HCl (vitamin B1) 100 mg 100 mg PO QAM #30 tabs 07/16/24 Rx tablet Hospital Stay Data Consultations 07/13/24 12:12 ED Decision to Admit Stat 07/14/24 10:22 Consult Behavioral Health Liaison Routine Diagnostic Imagining Performed 07/13/24 10:28 CT head/brain wo con Stat 07/14/24 10:22 US RUQ [US liver] Urgent Chest X-Ray 07/13/24 10:27 XR chest 1V portable CLINICAL HISTORY: Sepsis. COMPARISON STUDY: Chest radiograph and chest CT May 11, 2022. FINDINGS: Lung volumes are normal. Lungs are clear. There is no pneumothorax or pleural effusion. Cardiac size is normal. Mediastinal contours are normal. There is no evidence for pulmonary edema. IMPRESSION: No acute cardiopulmonary findings. ACT 112: Negative or not required by law. Electronically signed by: Garry Altman M.D. 07/13/2024 10:[address] 07/13/24 10:28 CT OF THE HEAD WITHOUT CONTRAST CLINICAL HISTORY: Altered mental status. COMPARISON STUDY: Head CT July 04, 2023. CT DOSE: 580.53 mGy.cm TECHNIQUE: Helical axial images of the head were obtained without IV contrast. Automated exposure control was utilized for the study. A dose lowering technique was utilized adhering to the principles of ALARA. FINDINGS: No acute intracranial hemorrhage, midline shift or mass effect is present. The ventricular system is unremarkable. The basal cisterns are patent. No extra-axial collections are present. There are no findings to suggest acute dural sinus thrombosis or acute territorial infarct. No significant calvarial abnormalities are present. IMPRESSION: No acute intracranial findings. ACT 112: Negative or not required by law. Electronically signed by: Garry Altman M.D. 07/13/2024 11:48 AM Liver Ultrasound 07/14/24 10:22 US liver CLINICAL HISTORY: Elevated LFT. Alcohol use COMPARISON STUDY: CT of the abdomen and pelvis and right upper quadrant ultrasound May 11, 2022. FINDINGS: Hepatic echogenicity is mildly increased. There is trace perihepatic fluid. Main portal vein is patent. No hepatic lesions are identified. There is no biliary ductal dilatation. There are no gallstones. Small amount of sludge within the gallbladder is noted. There is trace pericholecystic fluid. No sonographic Baltazar sign was elicited. The pancreas is obscured by overlying bowel gas. There is no right hydronephrosis. IMPRESSION: 1. No gallstones or biliary ductal dilatation. Small amount of sludge within the gallbladder. No evidence for acute cholecystitis. 2. Mild increased hepatic echogenicity. This favors a hepatic steatosis. Trace perihepatic fluid. 3. Obscured pancreas. ACT 112: Negative or not required by law. Electronically signed by: Garry Altman M.D. 07/14/2024 4:06 PM Discharge Instructions Given to Patient (Per Discharging Provider) Daniele, You were admitted and treated for hypoglycemia as well as a slow heart rate. Please stop taking your home propranolol as that can continue to slow your heart rate at home. You went through alcohol withdrawal while hospitalized. We strongly recommend that you discontinue alcohol use at home. Please continue taking your thiamine and folic acid supplements at home. Please keep close follow up with your primary care provider after discharge. Please do not hesitate to come back to the emergency room if your symptoms worsen or return. It was a pleasure taking care of you while you were here. Total Time Total Time Spent Total Time Spent (In Minutes): 65
[2024-07-16 12:32] LABS: Marijuana Quant, GCMS Urine 19 ng/mL (<5)
[2024-07-17] MEDS ORDERED: GABAPENTIN 100 MG CAP PO SCH (04:00)
== END 2024-07-16 12:09 | disposition home or self-care (01) | DRG 918 ==
LOC: ED 10:23 → SUATTDRO 12:51 → 2N 12:51

== ENCOUNTER 2024-07-20 16:23 | Inpatient (IN) ==
--- OUTSIDE RECORDS SUMMARY | 2024-07-20 16:26 | External Medical Summary ---
Author Name Unknown Address Unknown Organization [facility] [address] [place] [id number] Laboratory Report Ordering Provider Test Date Status ULYSSES NOVA 07/16/2024 13:34:35 Final Observation Date Value Abnormality Reference (Units ) Status SAM SPECIMEN-LAV 07/16/2024 13:34:35 Freezing of extracted DNA, whole blood and/or serum. Final Performing Location [facility] [address] [place] [address]
--- OUTSIDE RECORDS SUMMARY | 2024-07-20 16:26 | External Medical Summary | Summary of Care ---
Author Name Unknown Organization [facility] Address [address] [place] [address] Phone [phone] Care Team Providers Care Neuro Urologist Name Role Phone DarrylMike mederos Primary Care Provider [phone] Reason for Visit * Reason Comments Acute Encounter Details Date Type Department Care Team (Late st Contact Info) Description 07/19/2024 2:50 PM EST Telemedicine Family Practice Jose Alberto Candelario [address] [phone] Elida Jacobo PA-C [address] [address] Alcohol abuse*; Alcohol withdrawal syndrome without complication (HCC); Panic attacks Allergies No known active allergiesdocumented as of this encounter (statuses as of 07/19/2024) Medications Ibuprofen 200 MG Oral Tablet (Motrin) Take by mouth 200 mg every 6 hours as needed for Pain. 2 Active Melatonin 1 MG Oral Capsule Take 1 Capsule (1 mg) by mouth at bedtime. Active hydrOXYzine Pamoate 50 MG Oral Capsule (Vistaril)Indicat ions:Panic attacks Take 1 Capsule by mouth 3 times a day as needed for Anxiety. 45 Capsule 11 4 Active FLUoxetine HCl 10 MG Oral Capsule (PROzac)Indicatio ns:Generalized anxiety disorder,Panic disorder,Moderate depressive disorder,Mixed obsessional thoughts and acts Take 1 capsule by mouth in the morning for 2 weeks, then increase to 2 capsules by mouth in the morning 60 Capsule 1 10/29/202 4 Active Propranolol HCl 10 MG Oral Tablet (Inderal)Indicati ons:Generalized anxiety disorder,Panic disorder Take 1-2 tablets as needed up to twice daily for anxiety 60 Tablet 1 4 Active Apixaban 2.5 MG Oral Tablet (Eliquis) Take 1 Tablet by mouth in the morning and 1 Tablet in the evening. Active Gabapentin 300 MG Oral Capsule (Neurontin)Indica tions:Alcohol abuse,Alcohol withdrawal syndrome without complication (HCC),Panic attacks 1 tablet every 6 hours on day 1, then 1 tablet every 8 hours on day 2, then 1 tablet every 12 hours on day 3, then 1 tablet at night on day 4. 15 Capsule 4 Active documented as of this encounter (statuses as of 07/19/2024) Active Problems Problem Noted Date Diagnosed Date Panic attacks 05/16/2022 documented as of this encounter (statuses as of 07/19/2024) Immunizations Name Administration Dates Next Due DTaP Dipth/Tet/Acell Pertussis (Infanrix), Peds 11/24/2003,08/30/1999,1998,10/12,1998 HPV Vaccine, 9-Valent 10/01/2015 Hepatitis A, Ped/Adol., 18 y ear and below, 2-Dose 10/01/2015,12/22/2011 Hepatitis B, 0-19 yrs 1998,1998,05/20 IPV - Polio Virus Vaccine (Inact) 2003,06/06/1999,1998,07/28 MMR - Measles/Mumps/Rubella Vaccine 11/24/2003,1 Meningococcal MCV4P Conjugat e Vaccine (Menactra) 10/01/2015,12/20/2009 Pneumococcal Conjugate Vacci ne, 7 Valent 06/26/2000,12/07/1999 Rotavirus Vacc, Live, 5-[place] nt, 3 Dose (Rotateq) 1998,1998,1998 TDAP, Age 7 and older, IM (Adacel) 12/20/2009 Varicella Vaccine (Chicken Pox) 06/08/2008,06/06 documented as of this encounter Social History Tobacco Use Types Packs/Day Years Used Date Smoking Tobacco: Never Smokeless Tobacco: Never Alcohol Use Standard Drinks/Week Comments Not Currently 0 (1 standard drink = 0.6 oz pur e alcohol) AUDIT-C Answer Date Recorded Q1: How often do you have a drink containing alcohol? 4 or more times a week 12/06/2020 Q2: How many drinks containi ng alcohol do you have on a typical day when you are drinking? Not asked Q3: How often do you have si x or more drinks on one occasion? Not asked 12/06/2020 PHQ-2 Answer Date Recorded PHQ Adult Total Score 0 05/16/2022 Hunger Vital Sign Answer Date Recorded Within the past 12 months, y ou worried that your food would run out before you got the money to buy more. Never true 12/07/19 21 Within the past 12 months, t he food you bought just didn't last and you didn't have money to get more. Never true 12/06/2020 Sex and Gender Information Value Date Recorded Sex Assigned at Not on file Legal Sex Male 11:15 AM EST Gender Identity Not on file Sexual Orientation Not on file documented as of this encounter Progress Notes * Elida Jacobo PA-C - 07/19/2024 2:43 PM EST Patient location: HOME. I was in a hospital or clinic location. After connecting through televideo,patient was verified with two unique identifiers. 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 Methods to assure confidentiality were taken. Patient acknowledged consent and understanding of pr ivacy and security of the Telemedicine visit. The patient agreed to participate. Patient is a 24 yr old male who states he was an alcoholic for 7 years. States he was recently hospitalized for 4 days. Patient states he has been havign a lot of anxiety and panic. Patient is on meds for that but states not helping yet. Patient states he had a previous telehealth months ago regarding the same thing and was going to get a medication for alcohol cravings. Patient would like to start something like that. Patient states he does have a follow up with his pcp next week as well. Past Medical History: Diagnosis Date No known health problems Social History Socioeconomic History Marital status: Single Spouse name: Not on file Number of children: Not on file Years of education: Not on file Highest education level: Not on file Occupational History Not on file Tobacco Use Smoking status: Never Smokeless tobacco: Never Vaping Use Vaping status: Every Day Substances: Nicotine, THC, Flavoring Devices: Pre-filled or refillable cartridge (Pre filled), Pre-filled pod Substance and Sexual Activity Alcohol use: Not Currently Drug use: Yes Types: Marijuana Comment: occ-vaping Sexual activity: Not Currently Other Topics Concern Not on file Social History Narrative Not on file Social Needs Financial Resource Strain: Not on file Food Insecurity: No Food Insecurity (12/06/2020) Hunger Vital Sign Worried About Running Out of Food in the Last Year: Never true Ran Out of Food in the Last Year: Never true Transportation Needs: Not on file Social Connections: Not on file Housing Stability: Not on file No family history on file. Patient Active Problem List Diagnosis Panic attacks Current Outpatient Medications Medication Sig Dispense Refill Gabapentin 300 MG Oral Capsule (Neurontin) 1 tablet every 6 hours on day 1, then 1 tablet every 8 hours on day 2, then 1 tablet every 12 hours on day 3, then 1 tablet at night on day 4. 15 Capsule 0 Ibuprofen 200 MG Oral Tablet (Motrin) Take by mouth 200 mg every 6 hours as needed for Pain. Melatonin 1 MG Oral Capsule Take 1 Capsule (1 mg) by mouth at bedtime. hydrOXYzine Pamoate 50 MG Oral Capsule (Vistaril) Take 1 Capsule by mouth 3 times a day as needed for Anxiety. 45 Capsule 11 FLUoxetine HCl 10 MG Oral Capsule (PROzac) Take 1 capsule by mouth in the morning for 2 weeks, thenincrease to 2 capsules by mouth in the morning 60 Capsule 1 Propranolol HCl 10 MG Oral Tablet (Inderal) Take 1-2 tablets as needed up to twice daily for anxiety 60 Tablet 1 Apixaban 2.5 MG Oral Tablet (Eliquis) Take 1 Tablet by mouth in the morning and 1 Tablet in the evening. No current facility-administered medications for this visit. ALLERGIES REVIEWED AND UPDATED. Review of Systems: See HPI for pertinent positives. All other review of systems is negative. MALE PHYSICAL EXAM There were no vitals taken for this visit. GENERAL: alert, healthy, and no distress HEAD: Normocephalic, No masses, lesions, tenderness or abnormalities SKIN: skin color, texture, turgor are normal, no rashes or significant lesions EYES: PERRLA, extraocular movements intact, conjunctiva are pink and non- injected, sclera clear Assessment & Plan (F10.10) Alcohol abuse (primary encounter diagnosis) Plan: Gabapentin 300 MG Oral Capsule (Neurontin) Did discuss alcohol withdrawal. Patient has been 8 days without alcohol. Will begin patient on gabapentin. Patient following with his pcp next week. Did discuss following with the er or cc over the next few days if symptoms worsen. Patient is aware. (F10.930) Alcohol withdrawal syndrome without complication (HCC) Plan: Gabapentin 300 MG Oral Capsule (Neurontin) Did discuss alcohol withdrawal. Patient has been 8 days without alcohol. Will begin patient on gabapentin. Patient following with his pcp next week. Did discuss following with the er or cc over the next few days if symptoms worsen. Patient is aware. (F41.0) Panic attacks Plan: Gabapentin 300 MG Oral Capsule (Neurontin) Did discuss alcohol withdrawal. Patient has been 8 days without alcohol. Will begin patient on gabapentin. Patient following with his pcp next week. Did discuss following with the er or cc over the next few days if symptoms worsen. Patient is aware.patient to continue other current meds as well. I spent a total of 20-29 minutes (exact time 25 mins) on the date of service in preparation, delivery, and documentation of the care provided to Daniele Michel excluding any time spent in the performance of separately billed services or time spent by another provider/QHP. Elida Jacobo PA-C [facility] Jose Alberto Candelario [address] [phone] documented in this encounter Plan of Treatment Upcoming Encounters Date Type Department Care Team (Late st Contact Info) Description 07/22/2024 4:40 PM EST Office Visit Family [facility] State Bridgette Laughlin [address] [place] [address] Mike Johnson, DO [address] [address] Health Maintenance Due Date Last Done Comments HIV Screening 2013 HPV (Gardasil) Vaccine (2 - Male 3-dose series) 10/29/2015 10/01/2015 Hepatitis C Screening 2016 DTap/Tdap Vaccines (7 - Td or Tdap) 12/21/2019 12/20/2009, 11/24/2003, 08/30/1999, Additional history exists Depression Screening 05/16/2023 05/16/2022 COVID-19 Vaccine ( - season) 2024 Influenza Vaccine (FLU shot) (#1) 2024 Hepatitis B Vaccine Completed 1998, 1998, 1998 MENINGOCOCCAL (MENACTRA/MENVEO) Completed 10/01/2015, 12/20/2009 Pneumococcal Vaccine: Pediatrics (0 to 5 Years) and At-Risk Patients (6 to 64 Years) Aged Out No longer eligible based on patient's age to complete this topic documented as of this encounter Medical Devices Not on filedocumented as of this encounter Visit Diagnoses Diagnosis Alcohol abuse- Primary Alcohol abuse, unspecified Alcohol withdrawal syndrome without complication (HCC) Panic attacks Panic disorder without agoraphobia documented in this encounter Care Teams Neuro Urologist Relationship Specialty Start Date End Date Mike Johnson DO [address] [place] [address] PCP - General Family Medicine 07/05/22 documented as of this encounter
--- OUTSIDE RECORDS SUMMARY | 2024-07-20 16:26 | External Medical Summary ---
Author Name Unknown Address Unknown Organization [id number]:LABORATORY [facility] [place] - [address] [place] [address] Laboratory Report Ordering Provider Test Date Status ULYSSES NOVA 07/16/2024 13:34:35 Final Observation Date Value Abnormality Reference (Units ) Status MYCODE SPECIMEN-SST 07/16/2024 13:34:35 Freezing of extracted DNA, whole blood and/or serum. Final Performing Location LABORATORY [facility] [place] - [address] [facility] [address]
--- OUTSIDE RECORDS SUMMARY | 2024-07-20 16:26 | External Medical Summary | Summary of Care ---
Author Name Unknown Organization [facility] Address [address] [place] [address] Phone [phone] Care Team Providers Care Bag Bleacher Name Role Phone DarrylMike mederos Primary Care Provider [phone] Reason for Visit * Reason Onset Date Comments Hospital Follow-Up 07/18/2024 [facility] DC 07/16 and ED visit 07/17 Encounter Details Date Type Department Care Team (Late st Contact Info) Description 07/18/2024 Telephone Family Practice [facility] [address] [place] [address] Trniy Wylie, RN Hospital Follow-Up ([facility] DC 07/16 and ED v... Allergies No known active allergiesdocumented as of this encounter (statuses as of 07/18/2024) Medications Ibuprofen 200 MG Oral Tablet (Motrin) Take by mouth 200 mg every 6 hours as needed for Pain. 05/11/20 22 Active Melatonin 1 MG Oral Capsule Take 1 Capsule (1 mg) by mouth at bedtime. Active hydrOXYzine Pamoate 50 MG Oral Capsule (Vistaril)Indic ations:Panic attacks Take 1 Capsule by mouth 3 times a day as needed for Anxiety. 45 Capsule 11 12/31/19 24 Active FLUoxetine HCl 10 MG Oral Capsule (PROzac)Indicat ions:Generalize d anxiety disorder,Panic disorder,Modera te depressive disorder,Mixed obsessional thoughts and acts Take 1 capsule by mouth in the morning for 2 weeks, then increase to 2 capsules by mouth in the morning 60 Capsule 1 06/17/20 24 Active Propranolol HCl 10 MG Oral Tablet (Inderal)Indica tions:Generaliz ed anxiety disorder,Panic disorder Take 1-2 tablets as needed up to twice daily for anxiety 60 Tablet 1 06/17/20 24 Active Apixaban 2.5 MG Oral Tablet (Eliquis) Take 1 Tablet by mouth in the morning and 1 Tablet in the evening. Active Neomycin-Polymy misty-Dexameth [id number] Ophthalmic Ointment (Maxitrol) Instill into the left eye 4 times a day. 3.5 g 2 06/26/20 23 024 Discontinued predniSONE 10 MG Oral Tablet (Deltasone) Five tablets a day for days 1-2 Four tablets a day for days 3-4 Three tablets a day for days 5-6 Two tablets for days 7-8 One tablet a day for days 9-10 30 Tablet 07/11/20 23 024 Discontinued documented as of this encounter (statuses as of 07/18/2024) Active Problems Problem Noted Date Diagnosed Date Panic attacks 05/16/2022 documented as of this encounter (statuses as of 07/18/2024) Immunizations Name Administration Dates Next Due DTaP Dipth/Tet/Acell Pertussis (Infanrix), Peds 11/24/2003,08/30/1999,1998,10/12,1998 HPV Vaccine, 9-Valent 10/01/2015 Hepatitis A, Ped/Adol., 18 y ear and below, 2-Dose 10/01/2015,12/22/2011 Hepatitis B, 0-19 yrs 1998,1998,05/20 IPV - Polio Virus Vaccine (Inact) 2003,06/06/1999,1998,07/28 MMR - Measles/Mumps/Rubella Vaccine 11/24/2003,1 Meningococcal MCV4P Conjugat e Vaccine (Menactra) 10/01/2015,12/20/2009 Pneumococcal Conjugate Vacci ne, 7 Valent 06/26/2000,12/07/1999 Rotavirus Vacc, Live, 5-[place] nt, 3 Dose (Rotateq) 1998,1998,1998 TDAP, Age [...] on file documented as of this encounter Miscellaneous Notes * Telephone Encounter - Triny Wylie RN - 07/18/2024 10:02 AM EST Transitions of Care Note Reason for Referral:Recent Admission Phone visit for follow up: OTC Admitted to: [facility], Date: 07/13 Discharged to: home, Date: 07/16 Diagnosis driving hospitalization: Alcohol intoxication Alcohol withdrawal Bradycardia Hypoglycemia Source/Contact: Patient SUBJECTIVE Consent: Verbal consent for review of hospital discharge: Yes REVIEW OF SYSTEMS Patient/Other Reports: Current patient/caregiver problems or concerns: none at this time CV: Denies problems Pulmonary: Denies problems Chills/Sweats/Fever:Denies chills/sweats Denies fever Appetite:Denies problems such as nausea, vomiting, burning, decreased appetite Reports it is better since starting the prozac Current diet: as befpre Bowel: denies problems Bladder: denies problems Wound (If applicable): N/A Pain:Denies Sleep:Denies problems FUNCTIONAL STATUS: ADL'S: Needs Assistance With:N/A as pt is independent IADL'S: Needs Assistance With:N/A as pt is independent Cognitive and Mental Health: denies problems, alert and oriented x 3, and able to communicate, understand instructions, process information. MEDICATION RECONCILIATION Medications: Discharge med list reviewed with patient or caregiver New medication(s) filled since hospitalization- Eliquis 2.5 mg Reports all medications taken as prescribed. Denies side effects OBJECTIVE ASSESSMENT Medication Risk Assessment: No risks identified Did patient fail outpatient treatment? No Discharge instructions available for review? Yes PLAN Symptom Monitoring Interventions:Member/caregiver education - signs and symptoms to contact PrimaryCare (DO NOT DELETE-Three casas symptoms patient is to report to PCP) 1. Worsening pain to site of the superficial DVT 2. Alcohol ingestion 3. 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 Educated patient/caregiver on patient right to have input on ELSA plan of care. Verification of Home Health/DME if indicated: NO Identified Care Gaps: Yes Care Gaps closed this call: Appointment made or confirmed, Medication adherence, and Transition of Care follow-up communication Re-evaluation of Plan of Care and progress towards goals achievement: Patient education this visit: Verbal, as above. Pt aware to call instead of sending a myg if he has issues over the weekend Plan to follow-up as previously scheduled, instructed to call Primary Care Provider with change in symptoms or as needed before next follow-up, discharge needs met, verbalizes understanding and agrees with plan. Triny Wylie RN documented in this encounter Plan of Treatment Upcoming Encounters Date Type Department Care Team (Late st Contact Info) Description 07/22/2024 4:40 PM EST Office Visit Family Practice State Bridgette Laughlin [address] [facility] [address] [place] [address] Mike Johnson, DO [address] [facility] [address] [place] [address] Health Maintenance Due Date Last Done Comments [...] Not on filedocumented as of this encounter Care Teams Bag Bleacher Relationship Specialty Start Date End Date Mike Johnson DO [address] [place] [address] PCP - General Family Medicine 07/05/22 documented as of this encounter
--- OUTSIDE RECORDS SUMMARY | 2024-07-20 16:26 | External Medical Summary ---
Author Name Unknown Address Unknown Organization [id number]:[facility]AT[facility] [place] [address] [place] [id number] Laboratory Report Ordering Provider Test Date Status ULYSSES NOVA 07/16/2024 13:34:35 Final Observation Date Value Abnormality Reference (Units ) Status MYCODE SPECIMEN-SST 07/16/2024 13:34:35 Freezing of extracted DNA, whole blood and/or serum. Final Performing Location [facility] [place] - [address] [facility] [address]
[2024-07-20 17:07] LABS: Basophils # (auto) 0.02 K/uL (0.00-0.20); Basophils % (auto) 0.3 %; Eosinophils # (auto) 0.05 K/uL (0.00-0.50); Eosinophils % (auto) 0.8 %; Hemoglobin 15.3 g/dl (14.0-18.0); Immature Granulocytes # (auto) 0.02 K/uL (0.01-0.20); Immature Granulocytes % (auto) 0.3 %; Lymphocytes # (auto) 1.49 K/uL (1.20-3.40); Lymphocytes % (auto) 24.8 %; Mean Corpuscular Hemoglobin 33.2 pg (25.0-34.0); Mean Corpuscular Hgb Conc 35.6 g/dL (32.0-36.0); Mean Corpuscular Volume 93.3 fL (80.0-100.0); Mean Platelet Volume 8.7 fL (9.4-12.4); Monocytes % (auto) 13.3 %; Neutrophils # (auto) 3.63 K/uL (1.40-6.50); Neutrophils % (auto) 60.5 %; Platelet Count 300 K/uL (130-400); RDW Coefficient of Variation 10.9 % (11.5-14.5); RDW Standard Deviation 36.7 fL (36.4-46.3); Red Blood Count 4.61 M/uL (4.70-6.10); White Blood Count 6.01 K/ul (4.8-10.8)
--- NOTE | 2024-07-20 17:16 | XRay Report ---
EXAM: Radiograph of the Chest 1 View INDICATION: Alcohol abuse. Seizure. Fall. TECHNIQUE: Frontal view of the chest. COMPARISON: 07/17/2024 and 07/13/2024 FINDINGS: Lungs and pleural spaces: No consolidation or pulmonary edema. No pleural effusion or pneumothorax. Heart: Shape and configuration within normal limits allowing for technique. Mediastinum: Normal contour. Bones/joints: No fracture, erosion or dislocation. Soft tissues: No abnormality noted. No radiopaque foreign body noted. Upper abdomen: No abnormality noted. IMPRESSION: No abnormality noted. ACT 112: Negative or not required by law. Electronically signed by Mariana Candelaria 07-20-2024 5:16 PM
--- NOTE | 2024-07-20 17:19 | CT Scan Report ---
EXAM: CT Head Without Intravenous Contrast INDICATION: Alcohol abuse. Fall. Seizure. TECHNIQUE: Axial computed tomography images of the head/brain without intravenous contrast. Sagittal and/or coronal reformats are provided. Sagittal and coronal reformatted images were created and reviewed. This CT exam was performed using one or more of the following dose reduction techniques: automated exposure control, adjustment of the mA and/or kV according to patient size, and/or use of iterative reconstruction technique. COMPARISON: 07/13/2024 FINDINGS: Limitations: None. Brain and extra-axial spaces: No abnormality noted. No hemorrhage. No significant white matter disease. No edema. No ventriculomegaly. Bones/joints: No acute changes. Soft tissues: No significant abnormality noted. Vasculature: No acute abnormality noted. Sinuses: No layering fluid in the visualized portions of the paranasal sinuses. Mastoid air cells: No mastoid effusion. Orbits: No significant abnormality noted. IMPRESSION: No abnormality noted. ACT 112: Negative or not required by law. Electronically signed by Mariana Candelaria 07-20-2024 5:18 PM
--- NOTE | 2024-07-20 17:22 | CT Scan Report ---
EXAM: CT Cervical Spine Without Intravenous Contrast INDICATION: Alcohol abuse. Fall. Seizure. TECHNIQUE: Axial computed tomography images of the cervical spine without intravenous contrast. Sagittal and coronal reformatted images were created and reviewed. This CT exam was performed using one or more of the following dose reduction techniques: automated exposure control, adjustment of the mA and/or kV according to patient size, and/or use of iterative reconstruction technique. COMPARISON: No relevant prior studies available. FINDINGS: Limitations: None. Vertebrae: Straightening of the normal cervical curvature noted typical of spasm. The bones appear mildly demineralized. Vertebral body heights maintained. No fracture or significant subluxation. Sclerotic nodule C2 likely a bone island. Discs/spinal canal/neural foramina: No significant disc space abnormality or stenosis. Soft tissues: No significant abnormality noted. Lung apices: No significant abnormality noted. IMPRESSION: 1. Straightening of the normal cervical curvature typical of spasm. No fracture. 2. The bones appear demineralized. Correlate clinically. ACT 112: Negative or not required by law. Electronically signed by Mariana Candelaria 07-20-2024 5:22 PM
[2024-07-20 17:23] LABS: Albumin Level 5.2 gm/dl (3.4-5.0); BUN Creatinine Ratio 7.7 (10-20); Bilirubin Direct 0.2 mg/dl (0-0.2); Bilirubin,Total 0.6 mg/dl (0.2-1.0); Calcium 10.3 mg/dl (8.6-10.3); Creatinine Clr Calc Pharmacy 86.5 ml/min; Magnesium 2.6 mg/dl (1.7-2.4); Potassium 3.3 mmol/L (3.5-5.1); Total Protein 7.9 gm/dl (6.0-8.3)
--- NOTE | 2024-07-20 17:29 | Emergency Department Note ---
History of Present Illness General Chief complaint: Seizure Time Seen by Provider: 07/20/24 16:45 History of Present Illness Provider complaint: Seizure Onset (ago): hour(s) 1 Maximum Pain Intensity: 0 24-year-old male with history of alcoholism on Eliquis presents emergency department for seizure. Mother reports approximately 1 hour ago he had a seizure where he was unresponsive and shaking. Mother states she is not sure how long this lasted for. She states it resolved on its own volition. No pharmacological intervention was needed. Mother reported that the patient did fall when having a seizure. Patient is currently reporting no pain. He states he has not had any alcohol to drink in the last week. Home Medications Medication Instructions Recorded Confirmed Type apixaban 2.5 mg tablet (Eliquis) 2.5 mg PO BID 45 days #90 tabs 07/17/24 07/20/24 Rx fluoxetine 10 mg capsule 20 mg PO QAM 07/17/24 07/20/24 History hydroxyzine pamoate 50 mg capsule 50 mg PO TID PRN Anxiety 07/17/24 07/20/24 History propranolol 10 mg tablet 10 - 20 mg PO BID PRN Anxiety 07/17/24 07/20/24 History folic acid 1 mg tablet 1 mg PO QAM 07/20/24 07/20/24 History gabapentin 300 mg capsule 300 mg PO UD 07/20/24 07/20/24 History thiamine HCl (vitamin B1) 100 mg 100 mg PO QAM 07/20/24 07/20/24 History tablet Allergies Allergy/AdvReac Type Severity Reaction Status Date / Time No Known Allergies Allergy Verified 07/17/24 11:12 Past Med/Surg History Problem List (Updated 07/20/24 @ 20:27 by Keegan Johnson MD) Alcoholic gastritis Generalized anxiety disorder with panic attacks Hypokalemia Alcohol withdrawal seizure (Acute) History of alcohol abuse (Acute) Arm pain, left (Acute) Superficial venous thrombosis of arm (Acute) Alcohol withdrawal Alcohol abuse Anxiety and depression Bradycardia Change in mental status Hypoglycemia (Acute) Blow out fracture of orbit with routine healing Alcoholism Acute pancreatitis (Acute) Cast discomfort (Acute) Surgical History H/O esophagogastroduodenoscopy 2021 Family History Mother Breast cancer Social History Smoking Status: Current every day smoker Tobacco Type: E-cigarettes / Vaping Second Hand Exposure: No; Do You Dip or Chew Tobacco: No; Hx Alcohol Use: Yes Alcohol type: beer and hard liquor Hx Substance Use: Yes Last Used Substance: Days (ago) Preferred Language: Indian Communication Ability: Effective 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 Beliefs That Will Affect Care: None marital status: Single Current Living Situation: Other Current Living Situation Comment: roommate current occupational status: employed How many Children do You have: 0 Feels Safe at Home: Yes during the past year weight has: remained stable Assistive Devices: None Physical Exam Vital Signs Vital Signs - 24 hr 07/20/24 16:23 07/20/24 16:52 07/20/24 17:06 Temperature 36.7 C Temperature Source Oral Pulse Rate 91 H 80 Pulse Rate [Right Finger] Respiratory Rate 20 Respiratory Effort / Characteristics Non-Labored Spontaneous Respiratory Depth Normal Respiratory Pattern Regular Blood Pressure 133/95 Blood Pressure [Right Arm] Blood Pressure Mean 107 Blood Pressure Mean [Right Arm] Pulse Oximetry 99 Oxygen Delivery Method Room Air Room Air Sepsis Recent Fever Within 48 Hours No Sepsis New/Unexplained Change in Mental Status N/A Sepsis Action Taken by Nursing No Action Required 07/20/24 17:32 Temperature Temperature Source Pulse Rate Pulse Rate [Right Finger] 78 Respiratory Rate 18 Respiratory Effort / Characteristics Non-Labored Spontaneous Respiratory Depth Normal Respiratory Pattern Regular Blood Pressure Blood Pressure [Right Arm] 123/83 Blood Pressure Mean Blood Pressure Mean [Right Arm] 96 Pulse Oximetry 96 Oxygen Delivery Method Room Air Sepsis Recent Fever Within 48 Hours Sepsis New/Unexplained Change in Mental Status Sepsis Action Taken by Nursing Physical Exam GENERAL: He is oriented to person, place, and time. He appears well-developed and well-nourished. He does not appear distressed. Patient applying Chapstick in no acute distress. HENT: Exam performed. - Head: Normocephalic and atraumatic. - Right Ear: External ear normal. No mastoid erythema - Left Ear: External ear normal. No mastoid erythema - Mouth/Throat: The oropharynx is clear and moist. No trismus in the jaw. No dental abscesses or uvula swelling. No oropharyngeal exudate or tonsillar abscesses. No evidence of tongue bite. EYES: Conjunctivae and EOM are normal. Pupils are equal, round, and reactive to light. Right eye exhibits no discharge. Left eye exhibits no discharge. No scleral icterus. NECK: Normal range of motion. Neck supple. No JVD present. No spinous process tenderness present. CV: Normal rate, regular rhythm, normal heart sounds and intact distal pulses. There is no peripheral edema. Palpable radial pulses bue. PULM/CHEST: Effort normal and breath sounds normal. No respiratory distress. No stridor. He has no wheezes. He has no rales. ABD: The abdomen is soft. Bowel sounds are normal. He has no distension. No mass is present. There is no tenderness. There is no rebound, no guarding, no Baltazar's sign and no tenderness at McBurney's point. Rovsig negative. MUSC/SKEL: Normal range of motion. There is no peripheral edema, tenderness or deformity. LYMPH: No cervical adenopathy. NEURO: He is alert and oriented to person, place, and time. He has normal strength. No cranial nerve deficit or sensory deficit. Coordination and gait normal. GCS eye subscore is 4. GCS verbal subscore is 5. GCS motor subscore is 6. Cerebellar tests wnl. SKIN: Skin is warm and dry. He is not diaphoretic. PSYCH: He has a normal mood and affect. Behavior is normal. Judgment and thought content normal. Course Course 1645: The patient was evaluated in room B7. A complete history and physical exam was performed Cardiac monitoring: An order was placed for continuous cardiac monitoring. The monitor shows a rate of 80 with sinus rhythm interpreted by me 1735: Vital signs stable. Patient. Slightly tremulous Ativan ordered for the patient. Labs are unremarkable. Imaging unremarkable. Patient will be admitted to the [facility] team for alcohol withdrawal seizure. Administered Medications Discontinued Medications Lorazepam (Lorazepam 1 Mg Tab) 1 mg SL NOW STA Stop: 07/20/24 17:33 Last Admin: 07/20/24 17:37 Dose: 1 mg Documented By: ANGELIA Medical Decision Making Laboratory Data Attestation: I reviewed the patient's lab results. 07/20/24 16:35 07/20/24 16:35 Lab Results 07/20/24 Range/Units 16:35 WBC 6.01 (4.8-10.8) K/ul RBC 4.61 L (4.70-6.10) M/uL Hgb 15.3 (14.0-18.0) g/dl Hct 43.0 (42.0-52.0) % MCV 93.3 (80.0-100.0) fL MCH 33.2 (25.0-34.0) pg MCHC 35.6 (32.0-36.0) g/dL RDW Std Deviation 36.7 (36.4-46.3) fL RDW Coeff of Sabi 10.9 L (11.5-14.5) % Plt Count 300 (130-400) K/uL MPV 8.7 L (9.4-12.4) fL Immature Gran % (Auto) 0.3 % Neut % (Auto) 60.5 % Lymph % (Auto) 24.8 % [place] % (Auto) 13.3 % Eos % (Auto) 0.8 % Baso % (Auto) 0.3 % Neut # (Auto) 3.63 (1.40-6.50) K/uL Lymph # (Auto) 1.49 (1.20-3.40) K/uL [place] # (Auto) 0.80 H (0.11-0.59) K/uL Eos # (Auto) 0.05 (0.00-0.50) K/uL Baso # (Auto) 0.02 (0.00-0.20) K/uL Immature Gran # (Auto) 0.02 (0.01-0.20) K/uL PT 10.3 (9.0-12.0) Seconds INR 0.9 (0.9-1.1) APTT 25 (21-31) Seconds PTT Ratio 0.9 Sodium 140 (136-145) mmol/L Potassium 3.3 L (3.5-5.1) mmol/L Chloride 101 (98-107) mmol/L Carbon Dioxide 22 (21-32) mmol/L Anion Gap 17 H (3-11) BUN 8 (6-23) mg/dl Creatinine 1.04 (0.6-1.4) mg/dl Est Cr Clr Drug Dosing 86.5 ml/min eGFR 101.56 BUN/Creatinine Ratio 7.7 L (10-20) Glucose 69 L (70-99(Fasting)) mg/dl Calcium 10.3 (8.6-10.3) mg/dl Magnesium 2.6 H (1.7-2.4) mg/dl Total Bilirubin 0.6 (0.2-1.0) mg/dl Direct Bilirubin 0.2 (0-0.2) mg/dl AST 28 (13-39) U/L ALT 29 (7-52) U/L Alkaline Phosphatase 50 (34-104) U/L Total Protein 7.9 (6.0-8.3) gm/dl Albumin 5.2 H (3.4-5.0) gm/dl Lipase 44 (11-82) U/L Ethyl Alcohol mg/dL < 10.0 (<10.0) mg/dl Imaging Data Attestation: I personally reviewed and interpreted this imaging study as follows: My Impression: Chest x-ray: Chest x-ray negative. Airway clear. No pneumothorax. No consolidation. No cardiomegaly or cephalization.. No free air under the diaphragm. No fractures of the skeletal structures. CT head: No [facility] Radiologist's Impression: Head CT 07/20/24 16:45 EXAM: CT Head Without Intravenous Contrast INDICATION: Alcohol abuse. Fall. Seizure. TECHNIQUE: Axial computed tomography images of the head/brain without intravenous contrast. Sagittal and/or coronal reformats are provided. Sagittal and coronal reformatted images were created and reviewed. This CT exam was performed using one or more of the following dose reduction techniques: automated exposure control, adjustment of the mA and/or kV according to patient size, and/or use of iterative reconstruction technique. COMPARISON: 07/13/2024 FINDINGS: Limitations: None. Brain and extra-axial spaces: No abnormality noted. No hemorrhage. No significant white matter disease. No edema. No ventriculomegaly. Bones/joints: No acute changes. Soft tissues: No significant abnormality noted. Vasculature: No acute abnormality noted. Sinuses: No layering fluid in the visualized portions of the paranasal sinuses. Mastoid air cells: No mastoid effusion. Orbits: No significant abnormality noted. IMPRESSION: No abnormality noted. ACT 112: Negative or not required by law. Electronically signed by Mariana Candelaria 07-20-2024 5:[address] 07/20/24 16:46 EXAM: CT Cervical Spine Without Intravenous Contrast INDICATION: Alcohol abuse. Fall. Seizure. TECHNIQUE: Axial computed tomography images of the cervical spine without intravenous contrast. Sagittal and coronal reformatted images were created and reviewed. This CT exam was performed using one or more of the following dose reduction techniques: automated exposure control, adjustment of the mA and/or kV according to patient size, and/or use of iterative reconstruction technique. COMPARISON: No relevant prior studies available. FINDINGS: Limitations: None. Vertebrae: Straightening of the normal cervical curvature noted typical of spasm. The bones appear mildly demineralized. Vertebral body heights maintained. No fracture or significant subluxation. Sclerotic nodule C2 likely a bone island. Discs/spinal canal/neural foramina: No significant disc space abnormality or stenosis. Soft tissues: No significant abnormality noted. Lung apices: No significant abnormality noted. IMPRESSION: 1. Straightening of the normal cervical curvature typical of spasm. No fracture. 2. The bones appear demineralized. Correlate clinically. ACT 112: Negative or not required by law. Electronically signed by Mariana Candelaria 07-20-2024 5:22 PM Chest X-Ray 07/20/24 16:46 EXAM: Radiograph of the Chest 1 View INDICATION: Alcohol abuse. Seizure. Fall. TECHNIQUE: Frontal view of the chest. COMPARISON: 07/17/2024 and 07/13/2024 FINDINGS: Lungs and pleural spaces: No consolidation or pulmonary edema. No pleural effusion or pneumothorax. Heart: Shape and configuration within normal limits allowing for technique. Mediastinum: Normal contour. Bones/joints: No fracture, erosion or dislocation. Soft tissues: No abnormality noted. No radiopaque foreign body noted. Upper abdomen: No abnormality noted. IMPRESSION: No abnormality noted. ACT 112: Negative or not required by law. Electronically signed by Mariana Candelaria 07-20-2024 5:16 PM [facility] Narrative 1645: The patient was evaluated in room B7. A complete history and physical exam was performed Cardiac monitoring: An order was placed for continuous cardiac monitoring. The monitor shows a rate of 80 with sinus rhythm interpreted by ne 1735: Vital signs stable. Patient. Slightly tremulous Ativan ordered for the patient. Labs are unremarkable. Imaging unremarkable. Patient will be admitted to the [facility] team for alcohol withdrawal seizure. Impression & Plan Alcohol withdrawal seizure Discharge Plan Visit Data Chief Complaint: Seizure ED Provider: Keegan Johnson Discharge Problem: Alcohol withdrawal seizure Patient Disposition: Admitted As Inpatient Discharge Instructions Interventions: ED Discharge Assessment Last Done: 07/20/24 20:07
[2024-07-20] MEDS: LORazepam 1 MG TAB SL STA (17:37)
[2024-07-20 17:50] LABS: INR 0.9 (0.9-1.1); Partial Thromboplastin Ratio 0.9; Partial Thromboplastin Time 25 Seconds (21-31); Prothrombin Time 10.3 Seconds (9.0-12.0)
--- NOTE | 2024-07-20 18:25 | History & Physical Report ---
Date of Service July 20, 2024 Assessment & Plan (1) Alcohol withdrawal seizure: (2) Hypokalemia: (3) Superficial venous thrombosis of arm: (4) History of alcohol abuse: (5) Generalized anxiety disorder with panic attacks: (6) Hypoglycemia: (7) Alcoholic gastritis: Plan Patient is a 24-year-old gentleman presents to the emergency room with presumed alcohol withdrawal seizures. He has been approximately 9 days since his last alcoholic drink. Patient was started on a gabapentin taper as an outpatient yesterday by his PCP. In the emergency room also noted to be hypokalemic. A admit to the [facility] Alcohol withdrawal protocol with gabapentin taper As needed IV/p.o. Ativan for increased Keshia score breakthrough seizures Continue folic acid and thiamine replacement Pepcid for presumed alcohol gastritis Replace potassium Check electrolytes and renal function in a.m. Continue patient's other home medications as ordered. Continue Prozac for his anxiety management. If patient continues to have seizures may need to consider that Prozac may be the cause of his seizures, seizures are a reported adverse effect of Prozac. However at this time still suspect alcohol withdrawal seizure is the most likely etiology. Patient is 9 9 days out from his last alcoholic beverage this is somewhat a longer period of time than would be expected for withdrawal seizure. However this still is the most likely diagnosis. Will order EEG to rule out any other etiology for seizure Patient superficial thrombophlebitis is significantly improved. Discussed risks and benefits with him and his mother at the bedside about continuing anticoagulation. Superficial thrombophlebitis is not a risk factor for pulmonary embolism or stroke. Typically treated with NSAIDs and warm compresses. In the setting of withdrawal seizures felt that the risks of continued anticoagulation out weighed the benefits. Patient and mother agreed to discontinue the Eliquis History of Present Illness Chief Complaint: Seizure at home Primary Care Provider: Marcellus Mojica MD Patient is a 24-year-old gentleman with known history of alcohol misuse. Patient had a recent hospitalization for alcohol withdrawal and was discharged on July 16. Since that time he has been back in the emergency department diagnosed with a left cephalic vein superficial thrombophlebitis. It was elected to put him on low-dose Eliquis 2.5 mg 2 times daily. Yesterday patient was experiencing severe anxiety and panic. He did a televisit with his PCP and was started on gabapentin for withdrawal symptoms. It has been 9 days since his last alcohol intake. He states that the gabapentin significantly improved his symptoms. However, this afternoon he was with his family and he had a withdrawal seizure. Brought to the emergency room. In the emergency room workup was significant for some hypokalemia. Imaging of the brain was unremarkable, cervical spine showed no fracture. His alcohol level was 0. Referred to our service for ongoing concerns for withdrawal symptoms and seizures. At time my evaluation patient is sitting up without significant complaints. He denies any fever or chills. No cough or cold symptoms. States his appetite has not been that good his stomach has been upset ever since he has been drinking a lot of alcohol and still has not completely improved. No changes in his bowels or bladder habit he did not bite his tongue he did not have incontinence with this seizure. There is no family history of seizures or epilepsy. He has never had any seizures previously. He has been titrating up his Prozac to 20 mg over the last few days he has been at that dose. The thrombophlebitis in his left upper extremity is significantly improved tenderness and redness is essentially resolved. Allergies Allergy/AdvReac Type Severity Reaction Status Date / Time No Known Allergies Allergy Verified 07/17/24 11:12 Home Medications Medication Instructions Recorded Confirmed Type apixaban 2.5 mg tablet (Eliquis) 2.5 mg PO BID 45 days #90 tabs 07/17/24 07/20/24 Rx fluoxetine 10 mg capsule 20 mg PO QAM 07/17/24 07/20/24 History hydroxyzine pamoate 50 mg capsule 50 mg PO TID PRN Anxiety 07/17/24 07/20/24 History propranolol 10 mg tablet 10 - 20 mg PO BID PRN Anxiety 07/17/24 07/20/24 History folic acid 1 mg tablet 1 mg PO QAM 07/20/24 07/20/24 History gabapentin 300 mg capsule 300 mg PO UD 07/20/24 07/20/24 History thiamine HCl (vitamin B1) 100 mg 100 mg PO QAM 07/20/24 07/20/24 History tablet Past Med/Surg History Problem List (Updated 07/20/24 @ 18:32 by Stephon Tian DO) Alcoholic gastritis Generalized anxiety disorder with panic attacks Hypokalemia Alcohol withdrawal seizure History of alcohol abuse (Acute) Arm pain, left (Acute) Superficial venous thrombosis of arm (Acute) Alcohol withdrawal Alcohol abuse Anxiety and depression Bradycardia Change in mental status Hypoglycemia (Acute) Blow out fracture of orbit with routine healing Alcoholism Acute pancreatitis (Acute) Cast discomfort (Acute) Surgical History H/O esophagogastroduodenoscopy 2021 Family History Mother Breast cancer Social History Smoking Status: Current every day smoker Tobacco Type: E-cigarettes / Vaping Second Hand Exposure: No; Do You Dip or Chew Tobacco: No; Hx Alcohol Use: Yes Alcohol type: beer and hard liquor Hx Substance Use: Yes Last Used Substance: Days (ago) Preferred Language: Tajik Communication Ability: Effective 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 Sclera clear Neck: Soft, no adenopathy Lungs: Clear to auscultation, decreased, no wheezes rales or rhonchi CV: S1-S2, regular Abdomen: Soft, nontender, nondistended Extremities: No significant edema, still slightly palpable cephalic vein tenderness and firmness in the left upper extremity, no redness no venous streaking. Musculoskeletal: No significant joint tenderness Neuro: No focal deficits, very minimal tremor of his hands Psych: Cooperative, normal mood Results & Data Results & Data Vital Signs (Past 12 Hours) Vital Signs Temp Pulse Pulse Resp BP BP Pulse Ox 07/20/24 17:32 78 18 123/83 96 07/20/24 17:06 80 07/20/24 16:52 07/20/24 16:23 36.7 C 91 H 20 133/95 99 O2 Del Method 07/20/24 17:32 Room Air 07/20/24 17:06 07/20/24 16:52 Room Air 07/20/24 16:23 Room Air Diagnostic Findings Reviewed imaging, laboratory and diagnostic studies. Pertinent findings as below. WBCs 6.0 Hemoglobin 15.3 Potassium 3.3 Glucose 69 Magnesium 2.6 Alcohol level less than 10 Personally reviewed chest x-ray, no consolidative infiltrate, no congestion Reviewed reports of head and cervical spine CT, no acute findings or fractures (3) Superficial venous thrombosis of arm Laterality: left Qualified Code(s): I82.612 - Acute embolism and thrombosis of superficial veins of left upper extremity
[2024-07-20 19:32] LABS: Amphetamines+Metham, Urine Neg (Neg); Barbiturates, Urine Neg (Neg); Benzodiazepine, Urine Neg (Neg); Cocaine, Urine Neg (Neg); Fentanyl, Urine Neg (Neg); MDMA (Ecstacy), Urine Neg (Neg); Marijuana, Urine Pos (Neg); Methadone, Urine Neg (Neg); Opiate, Urine Neg (Neg); Phencyclidine, Urine Neg (Neg)
[2024-07-20] MEDS ORDERED: ACETAMINOPHEN 325 MG TAB PO PRN (20:22)
[2024-07-20] MEDS ORDERED: ALUMINUM/MAGNESIUM SUSP 30 ML UDC PO PRN (20:22)
[2024-07-20] MEDS ORDERED: Ativan PO Alcohol Withdrawal--Active Protocol PO PRN (20:22)
[2024-07-20] MEDS ORDERED: Ativan IV Alcohol Withdrawal--Active Protocol IV PRN (20:22)
[2024-07-20] MEDS ORDERED: LORazepam 1 MG TAB PO PRN ×2 (20:22)
[2024-07-20] MEDS ORDERED: LORazepam 2 MG/1 ML VIAL IV PRN ×2 (20:22)
[2024-07-20] MEDS ORDERED: GABAPENTIN 1200MG ALCOHOL WITHDRAWAL LOAD PO STA (20:22)
[2024-07-20] MEDS: FAMOTIDINE 20 MG TAB PO SCH (21:08)
[2024-07-20] MEDS: NICOTINE POLACRILEX 2 MG GUM MT PRN (21:09)
[2024-07-20] MEDS: GABAPENTIN 600 MG TAB PO ONE (21:09)
[2024-07-20] MEDS: hydrOXYzine HCl 25 MG TAB PO PRN (21:09)
[2024-07-20] MEDS: POTASSIUM CHLORIDE CRTAB 20 MEQ TABCR PO STA (21:11)
[2024-07-20] MEDS: POTASSIUM CHLORIDE CRTAB 20 MEQ TABCR PO ONE (21:12)
[2024-07-20] MEDS: NICOTINE 21 MG/24 HR TDSY TD SCH (21:34)
[2024-07-20] MEDS: LORazepam 1 MG TAB PO PRN (22:50)
[2024-07-20] MEDS ORDERED: MELATONIN 3 MG TAB PO PRN (23:38)
[2024-07-21] MEDS: GABAPENTIN 600 MG TAB PO SCH ×2 (00:05→15:31)
[2024-07-21 07:52] LABS: BUN Creatinine Ratio 8.5 (10-20); Calcium 9.1 mg/dl (8.6-10.3); Creatinine Clr Calc Pharmacy 95.8 ml/min; Magnesium 2.6 mg/dl (1.7-2.4); Potassium 3.8 mmol/L (3.5-5.1)
[2024-07-21] MEDS: FOLIC ACID 1 MG TAB PO SCH (08:15)
[2024-07-21] MEDS: THIAMINE HCL 100 MG TAB PO SCH (08:15)
[2024-07-21] MEDS: FLUoxetine HCL 20 MG CAP PO SCH (08:16)
[2024-07-21] MEDS: LORazepam 2 MG/1 ML VIAL IV PRN (08:25)
--- NOTE | 2024-07-21 13:43 | Hospitalist Progress Note ---
Date of Service July 21, 2024 Assessment & Plan (1) Alcohol withdrawal seizure: (2) Hypokalemia: (3) Superficial venous thrombosis of arm: (4) History of alcohol abuse: (5) Generalized anxiety disorder with panic attacks: (6) Hypoglycemia: (7) Alcoholic gastritis: Plan Patient is a 24-year-old gentleman presents to the emergency room with presumed alcohol withdrawal seizures. He has been approximately 9 days since his last alcoholic drink. Patient was started on a gabapentin taper as an outpatient yesterday by his PCP. In the emergency room also noted to be hypokalemic. Seizure patient with witnessed seizure at home Known history of alcohol abuse and has been reportedly [address] unremarkable No current signs of infection Neurology was consulted, appreciate recs -recommended MRI brain w/wo contrast, EEG, stopping gabapentin. AWSS protocol MRI brain ordered and pending EEG normal Continue to monitor on telemetry, as needed IV Ativan as needed Alcohol use disorder Patient alcohol level this admission 0 DWAYNE S protocol Per neurology discontinue gabapentin Continue with Ativan as needed Continue folic acid and thiamine Continue Pepcid for presumed alcohol gastritis hypokalemia Replete as needed Mood disorder Continue home medications Superficial thrombophlebitis Patient with this recent diagnosis Continue Eliquis twice daily Diet: DVT prophylaxis: Eliquis 2.5mg twice daily Dispo: Home once medically stable Admission and Anticipated Discharge Date Admission Date: July 20, 2024 Subjective Patient was seen with mom at bedside. Initially sleeping however upon awakening denied any acute concerns. Did note that he was anxious but denying SI or HI Mom asking about next steps and noting that she is taking time off from work to be home with him Review of Systems Review of Systems: All systems reviewed & are unremarkable except as noted in Subjective Physical Exam Physical Exam: General: Alert, oriented. No acute distress Psych: Appropriate mood and affect Neuro: No gross deficits HEENT: NC/AT CV: RRR Resp: Breath sounds clear bilaterally, no increased effort of breathing Abdomen: Soft, nontender, nondistended Extremities: No edema in lower extremities bilaterally. Results & Data Results & Data Vital Signs (Past 12 Hours) Vital Signs Temp Pulse Resp BP BP Pulse Ox O2 Del Method 07/21/24 12:21 36.4 C L 79 16 109/72 98 Room Air 07/21/24 08:02 36.6 C 66 18 127/89 100 Room Air 07/21/24 03:15 62 97 Room Air 07/21/24 02:48 36.4 C L 45 L 16 101/62 99 Room Air Diagnostic Findings Head CT 07/20/24 16:45 EXAM: CT Head Without Intravenous Contrast INDICATION: Alcohol abuse. Fall. Seizure. TECHNIQUE: Axial computed tomography images of the head/brain without intravenous contrast. Sagittal and/or coronal reformats are provided. Sagittal and coronal reformatted images were created and reviewed. This CT exam was performed using one or more of the following dose reduction techniques: automated exposure control, adjustment of the mA and/or kV according to patient size, and/or use of iterative reconstruction technique. COMPARISON: 07/13/2024 FINDINGS: Limitations: None. Brain and extra-axial spaces: No abnormality noted. No hemorrhage. No significant white matter disease. No edema. No ventriculomegaly. Bones/joints: No acute changes. Soft tissues: No significant abnormality noted. Vasculature: No acute abnormality noted. Sinuses: No layering fluid in the visualized portions of the paranasal sinuses. Mastoid air cells: No mastoid effusion. Orbits: No significant abnormality noted. IMPRESSION: No abnormality noted. ACT 112: Negative or not required by law. Electronically signed by Mariana Candelaria 07-20-2024 5:[address] 07/20/24 16:46 EXAM: CT Cervical Spine Without Intravenous Contrast INDICATION: Alcohol abuse. Fall. Seizure. TECHNIQUE: Axial computed tomography images of the cervical spine without intravenous contrast. Sagittal and coronal reformatted images were created and reviewed. This CT exam was performed using one or more of the following dose reduction techniques: automated exposure control, adjustment of the mA and/or kV according to patient size, and/or use of iterative reconstruction technique. COMPARISON: No relevant prior studies available. FINDINGS: Limitations: None. Vertebrae: Straightening of the normal cervical curvature noted typical of spasm. The bones appear mildly demineralized. Vertebral body heights maintained. No fracture or significant subluxation. Sclerotic nodule C2 likely a bone island. Discs/spinal canal/neural foramina: No significant disc space abnormality or stenosis. Soft tissues: No significant abnormality noted. Lung apices: No significant abnormality noted. IMPRESSION: 1. Straightening of the normal cervical curvature typical of spasm. No fracture. 2. The bones appear demineralized. Correlate clinically. ACT 112: Negative or not required by law. Electronically signed by Mariana Candelaria 07-20-2024 5:22 PM Chest X-Ray 07/20/24 16:46 EXAM: Radiograph of the Chest 1 View INDICATION: Alcohol abuse. Seizure. Fall. TECHNIQUE: Frontal view of the chest. COMPARISON: 07/17/2024 and 07/13/2024 FINDINGS: Lungs and pleural spaces: No consolidation or pulmonary edema. No pleural effusion or pneumothorax. Heart: Shape and configuration within normal limits allowing for technique. Mediastinum: Normal contour. Bones/joints: No fracture, erosion or dislocation. Soft tissues: No abnormality noted. No radiopaque foreign body noted. Upper abdomen: No abnormality noted. IMPRESSION: No abnormality noted. ACT 112: Negative or not required by law. Electronically signed by Mariana Candelaria 07-20-2024 5:16 PM (3) Superficial venous thrombosis of arm Laterality: left Qualified Code(s): I82.612 - Acute embolism and thrombosis of superficial veins of left upper extremity
--- NOTE | 2024-07-21 13:53 | Electrocardiogram Report ---
Test Reason : Blood Pressure : */* mmHG Vent. Rate : 76 BPM Atrial Rate : 76 BPM P-R Int : 156 ms QRS Dur : 86 ms QT Int : 382 ms P-R-T Axes : 61 62 56 degrees QTcB Int : 429 ms Normal sinus rhythm with sinus arrhythmia Normal ECG When compared with ECG of 17-Jul-2024 09:26, No significant change was found Confirmed by Zander Haley ([id number]) on 07/21/2024 1:52:40 PM Referred By: REFERRED SELF Confirmed By: Zander Haley
--- NOTE | 2024-07-21 15:20 | Neurology Consultation ---
Date of Consultation July 21, 2024 Assessment & Plan (1) Seizure: Seizure in setting of ETOH withdrawal noting timing not entirely congruent with expected withdraw symptoms Recommend continued close monitoring Recommend continued CIWA Utilize benzodiazepines for s/s of ETOH withdrawal MRI brain with and without contrast Recommend obtain EEG nonurgently Provide seizure precautions Utilize benzodiazepines emergently for any breakthrough clinical seizure like activity Continue frequent neurological assessments Obtain stat CT brain without contrast for any acute neurological decline Continue to monitor/control blood pressure & blood glucose Continue to monitor telemetry closely Continue to monitor renal and hepatic function, keep euvolemic Continue to monitor for s/s of infection Ok from neurology perspective for VTE prophylaxis PT/OT/SLT to eval and treat Telehealth Consultation Telehealth Information Telehealth Information: I performed this visit using a real-time telehealth connection between my location and the patients location ([facility]). After connecting through interactive tele-video, patient was identified by name and date of and/or wristband check.Patient (or authorized healthcare jewelry sales representative) was informed that this was a telemedicine visit and it was being conducted confidentially over secure lines. My office door was closed and no one else was present in the room with me.Patient (or authorized healthcare jewelry sales representative) provided consent to proceed with the visit, expressed an understanding of privacy and security of the telemedicine visit, and gave permission to have a hospital jewelry sales representative in the room in order to assist with the visit and to conduct portions of the visit, as needed. I informed the patient (or authorized healthcare jewelry sales representative) that I reviewed their record and presented the opportunity for them to ask any questions regarding the visit today. The patient agreed to participate. History of Present Illness Reason for Consultation: Seizure Requesting Physician: Dr Kumar Attending Physician: Melanie Kumar MD History of Present Illness 24yo male presented for ETOH withdrawal symptoms and has reportedly suffered seizure during hospitalization. Notable his last ETOH consumption was nine days ago. He has been undergoing CIWA scoring and supplemented with benzodiazepines as needed. He was initially prescribed gabapentin as an outpatient due to reported mild withdrawal symptoms. I have performed televideo consultation. He is alert & oriented; able to answer all questions appropriately, name objects on televideo monitor, repeat phrases and perform complex/embedded commands without deficit. Neurological exam is non lateralizing/nonfocal in terms of motor strength and coordination. He denies SI/HI at this time. His mother is at bedside, all questions answered. He has undergone a CT brain without contrast revealing no overt evidence of acute intracranial abnormality. I have explained my recommendation for an MRI and EEG as he reports significant history of head trauma including loss of consciousness in the past. He states he no longer wants to consume ETOH and he has support in place for continued abstinence from ETOH. Denies visual auditory or tactile hallucinations at this time No reported cephalgia or cervicalgia Denies chest pain/palpitations or shortness of breath No reported changes in vision hearing dizziness or paresthesia at this time Denies recent fevers chills nausea vomiting changes in bowels or bladder Denies recent medication changes, recent illness or sick contacts, no reported recent travel Allergies Allergy/AdvReac Type Severity Reaction Status Date / Time No Known Allergies Allergy Verified 07/17/24 11:12 Home Medications Medication Instructions Recorded Confirmed Type apixaban 2.5 mg tablet (Eliquis) 2.5 mg PO BID 45 days #90 tabs 07/17/24 07/20/24 Rx fluoxetine 10 mg capsule 20 mg PO QAM 07/17/24 07/20/24 History hydroxyzine pamoate 50 mg capsule 50 mg PO TID PRN Anxiety 07/17/24 07/20/24 H istory propranolol 10 mg tablet 10 - 20 mg PO BID PRN Anxiety 07/17/24 07/20/24 History folic acid 1 mg tablet 1 mg PO QAM 07/20/24 07/20/24 History gabapentin 300 mg capsule 300 mg PO UD 07/20/24 07/20/24 History thiamine HCl (vitamin B1) 100 mg 100 mg PO QAM 07/20/24 07/20/24 History tablet Patient History Surgical History H/O esophagogastroduodenoscopy 2021 Family History Mother Breast cancer Social History Smoking Status: Current every day smoker Tobacco Type: Cigarettes and E-cigarettes / Vaping Cigarettes Per Day: 30 (1.5 pack a day).; Second Hand Exposure: No; Do You Dip or Chew Tobacco: No; Tobacco Cessation Education Requested by Patient: No Hx Alcohol Use: Yes Alcohol type: beer and hard liquor Hx Substance Use: Yes Last Used Substance: Unknown Preferred Language: [place] Communication Ability: Effective Manager Photography Required: No Beliefs That Will Affect Care: None marital status: Single Current Living Situation: Other Current Living Situation Comment: Roomate. current occupational status: employed How many Children do You have: 0 Other Information That Helps Us Care for You: No Feels Safe at Home: Yes Safety Concerns: Feels Safe At This Time during the past year weight has: remained stable Assistive Devices: None Physical Exam Neurological Examination: Mental Status: Awake and alert. Oriented to person, place, and time. Fluency naming repetition and comprehension appear grossly intact. Affect remains appropriate. CN testing: I: Denies changes in ability to smell II:Reports no changes in visual acuity III/IV/: No evidence of gaze preference, hippus, nystagmus or roving eye movements V: Facial sensation reportedly grossly intact to light touch bilaterally VII: Facial movements appear without evidence of asymmetry VIII: Hearing appears grossly intact to loud voice bilaterally IX/X: Palate appears to elevate symmetrically XI: Shoulder shrug appears symmetric/ grossly intact bilaterally XII: Tongue protrudes midline without evidence of biting Motor exam: Strength appears grossly intact/symmetric in all extremities Sensory: Sensation is reportedly grossly intact throughout Coordination: Finger to nose and heel to jonas were intact. No apparent evidence of dysmetria or dysdiadochokinesia Reflexes: Deferred Gait: Deferred Results & Data Vital Signs (Past 12 Hours) Vital Signs Temp Pulse Resp BP Pulse Ox O2 Del Method 07/21/24 12:21 36.4 C L 79 16 109/72 98 Room Air 07/21/24 08:02 36.6 C 66 18 127/89 100 Room Air Laboratory Results Abnormal lab results 07/20/24 07/20/24 07/21/24 Range/Units 16:35 19:03 06:52 RBC 4.61 L (4.70-6.10) M/uL RDW Coeff of Sabi 10.9 L (11.5-14.5) % MPV 8.7 L (9.4-12.4) fL Prentiss # (Auto) 0.80 H (0.11-0.59) K/uL Potassium 3.3 L (3.5-5.1) mmol/L Anion Gap 17 H (3-11) BUN/Creatinine Ratio 7.7 L 8.5 L (10-20) Glucose 69 L (70-99(Fasting)) mg/dl Magnesium 2.6 H 2.6 H (1.7-2.4) mg/dl Albumin 5.2 H (3.4-5.0) gm/dl U Marijuana (THC) Screen Pos H (Neg) Diagnostic Findings Head CT 07/20/24 16:45 EXAM: CT Head Without Intravenous Contrast INDICATION: Alcohol abuse. Fall. Seizure. TECHNIQUE: Axial computed tomography images of the head/brain without intravenous contrast. Sagittal and/or coronal reformats are provided. Sagittal and coronal reformatted images were created and reviewed. This CT exam was performed using one or more of the following dose reduction techniques: automated exposure control, adjustment of the mA and/or kV according to patient size, and/or use of iterative reconstruction technique. COMPARISON: 07/13/2024 FINDINGS: Limitations: None. Brain and extra-axial spaces: No abnormality noted. No hemorrhage. No significant white matter disease. No edema. No ventriculomegaly. Bones/joints: No acute changes. Soft tissues: No significant abnormality noted. Vasculature: No acute abnormality noted. Sinuses: No layering fluid in the visualized portions of the paranasal sinuses. Mastoid air cells: No mastoid effusion. Orbits: No significant abnormality noted. IMPRESSION: No abnormality noted. ACT 112: Negative or not required by law. Electronically signed by Mariana Candelaria 07-20-2024 5:[address] 07/20/24 16:46 EXAM: CT Cervical Spine Without Intravenous Contrast INDICATION: Alcohol abuse. Fall. Seizure. TECHNIQUE: Axial computed tomography images of the cervical spine without intravenous contrast. Sagittal and coronal reformatted images were created and reviewed. This CT exam was performed using one or more of the following dose reduction techniques: automated exposure control, adjustment of the mA and/or kV according to patient size, and/or use of iterative reconstruction technique. COMPARISON: No relevant prior studies available. FINDINGS: Limitations: None. Vertebrae: Straightening of the normal cervical curvature noted typical of spasm. The bones appear mildly demineralized. Vertebral body heights maintained. No fracture or significant subluxation. Sclerotic nodule C2 likely a bone island. Discs/spinal canal/neural foramina: No significant disc space abnormality or stenosis. Soft tissues: No significant abnormality noted. Lung apices: No significant abnormality noted. IMPRESSION: 1. Straightening of the normal cervical curvature typical of spasm. No fracture. 2. The bones appear demineralized. Correlate clinically. ACT 112: Negative or not required by law. Electronically signed by Mariana Candelaria 07-20-2024 5:22 PM Chest X-Ray 07/20/24 16:46 EXAM: Radiograph of the Chest 1 View INDICATION: Alcohol abuse. Seizure. Fall. TECHNIQUE: Frontal view of the chest. COMPARISON: 07/17/2024 and 07/13/2024 FINDINGS: Lungs and pleural spaces: No consolidation or pulmonary edema. No pleural effusion or pneumothorax. Heart: Shape and configuration within normal limits allowing for technique. Mediastinum: Normal contour. Bones/joints: No fracture, erosion or dislocation. Soft tissues: No abnormality noted. No radiopaque foreign body noted. Upper abdomen: No abnormality noted. IMPRESSION: No abnormality noted. ACT 112: Negative or not required by law. Electronically signed by Mariana Candelaria 07-20-2024 5:16 PM Medications Administered Abnormal lab results 07/20/24 07/20/24 07/21/24 Range/Units 16:35 19:03 06:52 RBC 4.61 L (4.70-6.10) M/uL RDW Coeff of Sabi 10.9 L (11.5-14.5) % MPV 8.7 L (9.4-12.4) fL Prentiss # (Auto) 0.80 H (0.11-0.59) K/uL Potassium 3.3 L (3.5-5.1) mmol/L Anion Gap 17 H (3-11) BUN/Creatinine Ratio 7.7 L 8.5 L (10-20) Glucose 69 L (70-99(Fasting)) mg/dl Magnesium 2.6 H 2.6 H (1.7-2.4) mg/dl Albumin 5.2 H (3.4-5.0) gm/dl U Marijuana (THC) Screen Pos H (Neg)
--- NOTE | 2024-07-21 18:49 | Electroencephalogram ---
EEG Procedure Note Date of Service July 21, 2024 Start / End Times Start Time: 610 End Time: 630 Referring Physician Asmita Szymanski MD History A 24 year old M with alcohol withdrawal seizure. EEG performed for evaluation of epileptiform activity. Home Medication List Medication Instructions Recorded Confirmed Type apixaban 2.5 mg tablet (Eliquis) 2.5 mg PO BID 45 days #90 tabs 07/17/24 07/20/24 Rx fluoxetine 10 mg capsule 20 mg PO QAM 07/17/24 07/20/24 History hydroxyzine pamoate 50 mg capsule 50 mg PO TID PRN Anxiety 07/17/24 07/20/24 History propranolol 10 mg tablet 10 - 20 mg PO BID PRN Anxiety 07/17/24 07/20/24 History folic acid 1 mg tablet 1 mg PO QAM 07/20/24 07/20/24 History gabapentin 300 mg capsule 300 mg PO UD 07/20/24 07/20/24 History thiamine HCl (vitamin B1) 100 mg 100 mg PO QAM 07/20/24 07/20/24 History tablet Inpatient Medication List Famotidine (Famotidine 20 Mg Tab) 20 mg PO BID [facility] Stop: 08/19/24 20:59 Last Admin: 07/21/24 08:15 Dose: 20 mg Documented By: Admin: 07/20/24 21:08 Dose: Not Given Documented By: SIERRA Fluoxetine HCl (Fluoxetine Hcl 20 Mg Cap) 20 mg PO QAM [facility] Stop: 08/20/24 08:59 Last Admin: 07/21/24 08:16 Dose: 20 mg Documented By: SANDEEPK Folic Acid (Folic Acid 1 Mg Tab) 1 mg PO QAM [facility] Stop: 08/20/24 08:59 Last Admin: 07/21/24 08:15 Dose: 1 mg Documented By: SANDEEPK Hydroxyzine HCl (Hydroxyzine Hcl 25 Mg Tab) 50 mg PO Q6H PRN PRN Reason: Anxiety Stop: 08/19/24 20:21 Last Admin: 07/21/24 09:55 Dose: 50 mg Documented By: Admin: 07/20/24 21:09 Dose: 50 mg Documented By: SIERRA Lorazepam (Lorazepam 1 Mg Tab) 1 mg PO UD PRN; Protocol PRN Reason: EtOH Withdrawal AWSS Score 6,7 Stop: 08/19/24 20:21 Last Admin: 07/21/24 12:55 Dose: 1 mg Documented By: Admin: 07/20/24 22:50 Dose: 1 mg Documented By: SIERRA Lorazepam (Lorazepam 2 Mg/1 Ml Vial) 1 mg IV UD PRN; Protocol PRN Reason: EtOH Withdrawal AWSS Score 6,7 Stop: 08/19/24 20:21 Last Admin: 07/21/24 18:30 Dose: 1 mg Documented By: Admin: 07/21/24 16:14 Dose: 1 mg Documented By: Admin: 07/21/24 10:50 Dose: 1 mg Documented By: Admin: 07/21/24 08:25 Dose: 1 mg Documented By: ANA Nicotine (Nicotine 21 Mg/24 Hr Tdsy) 1 patch TD HS RUTH ANN Stop: 08/19/24 20:19 Last Admin: 07/20/24 21:34 Dose: 1 patch Documented By: SIERRA Nicotine Polacrilex (Nicotine Polacrilex 2 Mg Gum) 1 piece MT PRN PRN PRN Reason: smoking urge Stop: 08/19/24 20:29 Last Admin: 07/21/24 16:14 Dose: 1 piece Documented By: Admin: 07/21/24 06:00 Dose: 1 piece Documented By: Admin: 07/20/24 22:52 Dose: 1 piece Documented By: Admin: 07/20/24 21:09 Dose: 1 piece Documented By: SIERRA Thiamine HCl (Thiamine Hcl 100 Mg Tab) [address] [facility] [place] Stop: 08/20/24 08:59 Last Admin: 07/21/24 08:15 Dose: 100 mg Documented By: ANA Discontinued Medications Gabapentin (Gabapentin 600 Mg Tab) 1,200 mg PO NOW ONE Stop: 07/20/24 20:23 Last Admin: 07/20/24 21:09 Dose: 1,200 mg Documented By: SIERRA Gabapentin (Gabapentin 600 Mg Tab) 600 mg PO Q6H [facility] Stop: 07/21/24 06:31 Last Admin: 07/21/24 06:00 Dose: 600 mg Documented By: Admin: 07/21/24 00:05 Dose: 600 mg Documented By: SIERRA Gabapentin (Gabapentin 600 Mg Tab) 600 mg PO Q8H [facility] Stop: 07/22/24 06:31 Last Admin: 07/21/24 15:31 Dose: Not Given Documented By: TBK Lorazepam (Lorazepam 1 Mg Tab) 1 mg SL NOW STA Stop: 07/20/24 17:33 Last Admin: 07/20/24 17:37 Dose: 1 mg Documented By: NRB Potassium Chloride (Potassium Chloride Crtab 20 Meq Tabcr) 40 meq PO NOW STA Stop: 07/20/24 20:23 Last Admin: 07/20/24 21:11 Dose: 40 meq Documented By: RES Potassium Chloride (Potassium Chloride Crtab 20 Meq Tabcr) 40 meq PO ONCE ONE Stop: 07/20/24 22:01 Last Admin: 07/20/24 21:12 Dose: 40 meq Documented By: RES Description This is a 21 electrode EEG with a single channel dedicated to limited EKG. The electrodes were placed in accordance with the International 10-20 system. REPORT: At the onset of the EEG, the patient is awake. The background activity consist of 10-11 Hz, persistent, posteriorly dominant, moderate amplitude, symmetric and rhythmic activity that is reactive to eye opening. Anteriorly, it consist of a mixture of low voltage indeterminate activity and 15-25 Hz, persistent, low amplitude, symmetric and rhythmic activity. Stepwise intermittent photic stimulation (1-21 Hz) and hyperventilation (3 minutes, good effort) do not induce any abnormalities. Drowsiness is characterized by low amplitude mixed frequency activity, roving eye movements, and decreased eye blinking and muscle artifact. Interpretation IMPRESSION: This is a normal awake and drowsy EEG. There is no evidence of focal slowing or epileptiform activity.
[2024-07-21] MEDS: GADOBUTROL 65ML VIAL IV ONE (19:45)
[2024-07-21] MEDS: APIXABAN 2.5 MG TAB PO SCH (20:26)
--- NOTE | 2024-07-21 22:11 | Magnetic Resonance Report ---
Exam(s): MRI HEAD With Contrast EXAM: MR Head With Intravenous Contrast CLINICAL HISTORY: seizure. TECHNIQUE: Magnetic resonance images of the head/brain with intravenous contrast in multiple planes. CONTRAST: 10 ml Dotarem COMPARISON: CT Brain 07-20-2024. FINDINGS: Brain: Ventricle and sulci are normal in size. No acute stroke. There is a 5 x 3.5 mm well-circumscribed cluster of CSF signal intensity rounded lesions in the anterior inferior right parietal lobe overlying the body of the right lateral ventricle (coronal series 10 image 27) adjacent to a deep sulcus, without evidence for blood products or enhancement. The lesion is hypodense intense on diffusion weighted and FLAIR images. No associated mass-effect. No acute hemorrhage. No abnormal extra-axial fluid collection. Ventricles: No midline shift. No ventriculomegaly. Bones/joints: Unremarkable. No acute fracture. Sinuses: Unremarkable as visualized. No acute sinusitis. Mastoid air cells: Unremarkable as visualized. No mastoid effusion. Orbits: Unremarkable as visualized. IMPRESSION: well-circumscribed cluster of CSF signal intensity rounded lesions in the anterior inferior right parietal lobe overlying the body of the right lateral ventricle adjacent to a deep sulcus. Appearance suggests a nonspecific cyst, possibly arachnoid cyst in the deep sulcus or a parenchymal cyst. A low-grade neoplasm is less likely although cannot be excluded. Follow-up is recommended. Electronically signed by: Negrito Morales M.D. 07/21/24 22:11 PM
[2024-07-22 07:27] VITALS: PULSE 63; RESP 16; TEMP 97.7; O2SAT 100
[2024-07-22 09:40] LABS: Basophils # (auto) 0.02 K/uL (0.00-0.20); Basophils % (auto) 0.4 %; Eosinophils # (auto) 0.06 K/uL (0.00-0.50); Eosinophils % (auto) 1.3 %; Hematocrit (blood only) 40.9 % (42.0-52.0); Hemoglobin 14.5 g/dl (14.0-18.0); Immature Granulocytes # (auto) 0.02 K/uL (0.01-0.20); Immature Granulocytes % (auto) 0.4 %; Lymphocytes # (auto) 1.09 K/uL (1.20-3.40); Lymphocytes % (auto) 22.9 %; Mean Corpuscular Hgb Conc 35.5 g/dL (32.0-36.0); Mean Corpuscular Volume 93.2 fL (80.0-100.0); Mean Platelet Volume 8.8 fL (9.4-12.4); Monocytes % (auto) 12.6 %; Neutrophils # (auto) 2.97 K/uL (1.40-6.50); Neutrophils % (auto) 62.4 %; Platelet Count 324 K/uL (130-400); RDW Coefficient of Variation 10.6 % (11.5-14.5); Red Blood Count 4.39 M/uL (4.70-6.10); White Blood Count 4.76 K/ul (4.8-10.8)
[2024-07-22 09:45] LABS: Albumin Globulin Ratio 1.7 (0.9-2); Albumin Level 4.5 gm/dl (3.4-5.0); BUN Creatinine Ratio 11.4 (10-20); Bilirubin,Total 0.6 mg/dl (0.2-1.0); Calcium 9.3 mg/dl (8.6-10.3); Creatinine Clr Calc Pharmacy 102.4 ml/min; Globulin 2.7 gm/dl (2.5-4.0); Magnesium 2.3 mg/dl (1.7-2.4); Phosphorus 2.1 mg/dl (2.5-4.9); Potassium 3.9 mmol/L (3.5-5.1); Total Protein 7.2 gm/dl (6.0-8.3)
--- NOTE | 2024-07-22 12:17 | Communication Note ---
Date of Service: July 22, 2024 MRI brain reviewed. Right hemispheric areas of likely cystic lesions. Recommend NSG ambulatory referral and follow up MRI brain with and without contrast in one month Recommend continue current therapies CIWA and benzodiazepines as indicated for continued monitoring of ETOH withdrawal
[2024-07-22] MEDS: POT PHOSPHATE MONOBASIC W/ SOD TAB PO SCH (12:49)
[2024-07-22] MEDS: NICOTINE POLACRILEX 2 MG GUM MT PRN (14:01)
[2024-07-22 14:05] VITALS: BP 101/62
--- NOTE | 2024-07-22 14:38 | Discharge Summary ---
Discharge Summary Date of Service July 22, 2024 Principal Dx & Hospital Course #1 = Principal Diagnosis (1) Alcohol withdrawal seizure: (2) Hypokalemia: (3) Superficial venous thrombosis of arm: (4) History of alcohol abuse: (5) Generalized anxiety disorder with panic attacks: (6) Hypoglycemia: (7) Alcoholic gastritis: Plan Patient is a 24-year-old gentleman presents to the emergency room with presumed alcohol withdrawal seizures. He has been approximately 9 days since his last alcoholic drink. Patient was started on a gabapentin taper as an outpatient yesterday by his PCP. In the emergency room also noted to be hypokalemic. Seizure patient with witnessed seizure at home Known history of alcohol abuse and has been reportedly [address] unremarkable No current signs of infection Neurology was consulted, appreciate recs -recommended MRI brain w/wo contrast, EEG, stopping gabapentin. AWSS protocol MRI brain noting "well-circumscribed cluster of CSF signal intensity rounded lesions in the anterior inferior right parietal lobe overlying the body of the right lateral ventricle adjacent to a deep sulcus. Appearance suggests a nonspecific cyst, possibly arachnoid cyst in the deep sulcus or a parenchymal cyst. A low-grade neoplasm is less likely although cannot be excluded. Follow- up is recommended." EEG normal Patient's MRI brain results was discussed with Dr. Marcellus Calvillo from neurology who stated/advised the following: "MRI brain reviewed. Right hemispheric areas of likely cystic lesions. Recommend NSG ambulatory referral and follow up MRI brain with and without contrast in one month Recommend continue current therapies" Neurology also advised that the seizure was likely provoked. Please ensure followup with Neurosurgery as an outpatient. Also advised follow- up with an MRI brain in 1 month. Alcohol use disorder Patient alcohol level this admission 0 AWSS protocol Per neurology discontinue gabapentin Continue with Ativan as needed Continue folic acid and thiamine Continue Pepcid for presumed alcohol gastritis hypokalemia Replete as needed Mood disorder Continue home medications Superficial thrombophlebitis Patient with this recent diagnosis Continue Eliquis twice daily Notes For Next Care Provider Please ensure followup with Neurosurgery as an outpatient. Also advised follow- up with an MRI brain in 1 month. Medication Changes From Visit Discontinue gabapentin per Neurology Discontinue propranolol for noted bradycardia Admission HPI Per Admitting Provider Patient is a 24-year-old gentleman with known history of alcohol misuse. Patient had a recent hospitalization for alcohol withdrawal and was discharged on July 16. Since that time he has been back in the emergency department diagnosed with a left cephalic vein superficial thrombophlebitis. It was elected to put him on low-dose Eliquis 2.5 mg 2 times daily. Yesterday patient was experiencing severe anxiety and panic. He did a televisit with his PCP and was started on gabapentin for withdrawal symptoms. It has been 9 days since his last alcohol intake. He states that the gabapentin significantly improved his symptoms. However, this afternoon he was with his family and he had a withdrawal seizure. Brought to the emergency room. In the emergency room workup was significant for some hypokalemia. Imaging of the brain was unremarkable, cervical spine showed no fracture. His alcohol level was 0. Referred to our service for ongoing concerns for withdrawal symptoms and seizures. At time my evaluation patient is sitting up without significant complaints. He denies any fever or chills. No cough or cold symptoms. States his appetite has not been that good his stomach has been upset ever since he has been drinking a lot of alcohol and still has not completely improved. No changes in his bowels or bladder habit he did not bite his tongue he did not have incontinence with this seizure. There is no family history of seizures or epilepsy. He has never had any seizures previously. He has been titrating up his Prozac to 20 mg over the last few days he has been at that dose. The thrombophlebitis in his left upper extremity is significantly improved tenderness and redness is essentially resolved. Admission Exam Per Admitting Provider Constitutional: Alert, no acute distress, nontoxic HEENT: Mucous membranes moist. Sclera clear Neck: Soft, no adenopathy Lungs: Clear to auscultation, decreased, no wheezes rales or rhonchi CV: S1-S2, regular Abdomen: Soft, nontender, nondistended Extremities: No significant edema, still slightly palpable cephalic vein tenderness and firmness in the left upper extremity, no redness no venous streaking. Musculoskeletal: No significant joint tenderness Neuro: No focal deficits, very minimal tremor of his hands Psych: Cooperative, normal mood Discharge Exam General: Alert, oriented. No acute distress Psych: Appropriate mood and affect Neuro: No gross deficits HEENT: NC/AT CV: RRR Resp: Breath sounds clear bilaterally, no increased effort of breathing Abdomen: Soft, nontender, nondistended Extremities: No edema in lower extremities bilaterally. Updated Medication List Medication Instructions Recorded Confirmed Type apixaban 2.5 mg tablet (Eliquis) 2.5 mg PO BID 45 days #90 tabs 07/17/24 07/20/24 Rx fluoxetine 10 mg capsule 20 mg PO QAM 07/17/24 07/20/24 History hydroxyzine pamoate 50 mg capsule 50 mg PO TID PRN Anxiety 07/17/24 07/20/24 History folic acid 1 mg tablet 1 mg PO QAM 07/20/24 07/20/24 History thiamine HCl (vitamin B1) 100 mg 100 mg PO QAM 07/20/24 07/20/24 History tablet Hospital Stay Data Consultations 07/20/24 17:34 ED Decision to Admit Stat 07/21/24 13:42 Consult Neurology Routine Diagnostic Imagining Performed 07/20/24 16:45 CT head/brain wo con Stat 07/20/24 16:46 CT cervical spine wo con Stat 07/21/24 15:32 MRI Brain [MR brain seizure wo/w con] Urgent Head CT 07/20/24 16:45 EXAM: CT Head Without Intravenous Contrast INDICATION: Alcohol abuse. Fall. Seizure. TECHNIQUE: Axial computed tomography images of the head/brain without intravenous contrast. Sagittal and/or coronal reformats are provided. Sagittal and coronal reformatted images were created and reviewed. This CT exam was performed using one or more of the following dose reduction techniques: automated exposure control, adjustment of the mA and/or kV according to patient size, and/or use of iterative reconstruction technique. COMPARISON: 07/13/2024 FINDINGS: Limitations: None. Brain and extra-axial spaces: No abnormality noted. No hemorrhage. No significant white matter disease. No edema. No ventriculomegaly. Bones/joints: No acute changes. Soft tissues: No significant abnormality noted. Vasculature: No acute abnormality noted. Sinuses: No layering fluid in the visualized portions of the paranasal sinuses. Mastoid air cells: No mastoid effusion. Orbits: No significant abnormality noted. IMPRESSION: No abnormality noted. ACT 112: Negative or not required by law. Electronically signed by Mariana Candelaria 07-20-2024 5:[address] 07/20/24 16:46 EXAM: CT Cervical Spine Without Intravenous Contrast INDICATION: Alcohol abuse. Fall. Seizure. TECHNIQUE: Axial computed tomography images of the cervical spine without intravenous contrast. Sagittal and coronal reformatted images were created and reviewed. This CT exam was performed using one or more of the following dose reduction techniques: automated exposure control, adjustment of the mA and/or kV according to patient size, and/or use of iterative reconstruction technique. COMPARISON: No relevant prior studies available. FINDINGS: Limitations: None. Vertebrae: Straightening of the normal cervical curvature noted typical of spasm. The bones appear mildly demineralized. Vertebral body heights maintained. No fracture or significant subluxation. Sclerotic nodule C2 likely a bone island. Discs/spinal canal/neural foramina: No significant disc space abnormality or stenosis. Soft tissues: No significant abnormality noted. Lung apices: No significant abnormality noted. IMPRESSION: 1. Straightening of the normal cervical curvature typical of spasm. No fracture. 2. The bones appear demineralized. Correlate clinically. ACT 112: Negative or not required by law. Electronically signed by Mariana Candelaria 07-20-2024 5:22 PM Chest X-Ray 07/20/24 16:46 EXAM: Radiograph of the Chest 1 View INDICATION: Alcohol abuse. Seizure. Fall. TECHNIQUE: Frontal view of the chest. COMPARISON: 07/17/2024 and 07/13/2024 FINDINGS: Lungs and pleural spaces: No consolidation or pulmonary edema. No pleural effusion or pneumothorax. Heart: Shape and configuration within normal limits allowing for technique. Mediastinum: Normal contour. Bones/joints: No fracture, erosion or dislocation. Soft tissues: No abnormality noted. No radiopaque foreign body noted. Upper abdomen: No abnormality noted. IMPRESSION: No abnormality noted. ACT 112: Negative or not required by law. Electronically signed by Mariana Candelaria 07-20-2024 5:16 PM Brain MRI 07/21/24 15:32 Exam(s): MRI HEAD With Contrast EXAM: MR Head With Intravenous Contrast CLINICAL HISTORY: seizure. TECHNIQUE: Magnetic resonance images of the head/brain with intravenous contrast in multiple planes. CONTRAST: 10 ml Dotarem COMPARISON: CT Brain 07-20-2024. FINDINGS: Brain: Ventricle and sulci are normal in size. No acute stroke. There is a 5 x 3.5 mm well-circumscribed cluster of CSF signal intensity rounded lesions in the anterior inferior right parietal lobe overlying the body of the right lateral ventricle (coronal series 10 image 27) adjacent to a deep sulcus, without evidence for blood products or enhancement. The lesion is hypodense intense on diffusion weighted and FLAIR images. No associated mass-effect. No acute hemorrhage. No abnormal extra-axial fluid collection. Ventricles: No midline shift. No ventriculomegaly. Bones/joints: Unremarkable. No acute fracture. Sinuses: Unremarkable as visualized. No acute sinusitis. Mastoid air cells: Unremarkable as visualized. No mastoid effusion. Orbits: Unremarkable as visualized. IMPRESSION: well-circumscribed cluster of CSF signal intensity rounded lesions in the anterior inferior right parietal lobe overlying the body of the right lateral ventricle adjacent to a deep sulcus. Appearance suggests a nonspecific cyst, possibly arachnoid cyst in the deep sulcus or a parenchymal cyst. A low-grade neoplasm is less likely although cannot be excluded. Follow-up is recommended. Electronically signed by: Negrito Morales M.D. 07/21/24 22:11 PM Discharge Instructions Given to Patient (Per Discharging Provider) Daniele, You are admitted with concern for a provoked seizure. You were seen by the neurologist who believes the seizure was provoked by alcohol withdrawal. You had an EEG done which did not show any noted seizures. You also had an MRI of the brain which was concerning for a brain cyst. The neurologist advised that you follow-up with neurosurgery as an outpatient and that you have a follow-up MRI done in 1 month. Neurology also recommends that you discontinue use of the gabapentin at home. We also discontinued use of your home propranolol as it was decreasing your heart rate. Please continue with the Prozac and hydroxyzine at home and keep close follow-up with your psychiatric providers. Congratulations on the abstaining from alcohol use this far. Please continue at home. Please keep close follow up with your primary care provider after discharge. Please do not hesitate to come back to the emergency room if your symptoms worsen or return. It was a pleasure taking care of you while you were here. Total Time Total Time Spent Total Time Spent (In Minutes): 65
[2024-07-22] MEDS ORDERED: GABAPENTIN 600 MG TAB PO SCH (18:30)
[2024-07-23 13:37] LABS: Marijuana Quant, GCMS Urine 557 ng/mL (<5)
[2024-07-24] MEDS ORDERED: GABAPENTIN 600 MG TAB PO SCH (06:30)
== END 2024-07-22 15:13 | disposition home or self-care (01) | DRG 897 ==
LOC: ED 16:23 → 3N 18:22 → SUATTDRO 18:22 → 3N 20:07

== ENCOUNTER 2024-07-26 18:39 | Observation (INO) ==
--- NOTE | 2024-07-26 19:01 | Emergency Department Note ---
Impression & Plan Alcohol withdrawal ADMIT ED Provider Note HPI: History obtained from patient and patient's mother. The patient is a 24-year-old gentleman with history of alcohol abuse, history of alcohol withdrawal seizures, generalized anxiety disorder, presents the emergency department today with suicidal threats. Patient states that he had several panic attacks today and he started drinking because he was feeling anxious. His mother states that she had a phone conversation with him this evening that seemed "abnormal" and therefore she had a friend go over to his house to check on him. Patient was making suicidal threats at the time and therefore his mother contacted EMS for the patient to be transported to the ED. Patient does admit to me during my interview that he is having suicidal thoughts but he denies a specific plan. Patient is intoxicated on arrival and he does appear anxious and mildly agitated but he is cooperative with history. Patient is otherwise hemodynamically stable on arrival. ROS: - Per HPI Differential Diagnosis: Alcohol intoxication, suicidal threats, anxiety/depression, alcohol withdrawal, amongst other potential pathologies. *Outpatient medications and allergy history reviewed. 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 Lab work shows no critical findings on CBC or CMP however the patient's alcohol level did return markedly elevated at 319, urine drug screen was positive for marijuana. Patient was held here in the ED for approximately 7 hours and on my reassessment he is already requested multiple doses of Ativan, he is alert and he is awake however he is stating he feels very "shaky". Patient did recently have an admission for alcohol withdrawal seizure, I do not feel that he will be medically cleared for inpatient psychiatric care given his suicidal thoughts and therefore I did discuss his presentation with the on-call hospitalist, Dr. Nicolas, and he is in agreement to admit the patient for further care and psychiatric consultation on the floor. Patient was in agreement to this plan and he was placed for admission in stable condition. Consultants/Discussions held with other healthcare providers: -Hospitalist, Dr. Nicolas Diagnosis: 1. Suicidal thoughts, acute 2. Alcohol withdrawal syndrome, acute 3. Alcohol intoxication, acute Disposition: Admission Guillermo Phillips DO Emergency Medicine Past Med/Surg History Problem List (Updated 07/27/24 @ 01:40 by Guillermo Phillips DO) Alcohol withdrawal (Acute) Seizure Alcoholic gastritis Generalized anxiety disorder with panic attacks Hypokalemia Alcohol withdrawal seizure (Acute) History of alcohol abuse (Acute) Arm pain, left (Acute) Superficial venous thrombosis of arm (Acute) Alcohol withdrawal Alcohol abuse Anxiety and depression Bradycardia Change in mental status Hypoglycemia (Acute) Blow out fracture of orbit with routine healing Alcoholism Acute pancreatitis (Acute) Cast discomfort (Acute) Surgical History H/O esophagogastroduodenoscopy 2021 Family History Mother Breast cancer Social History Smoking Status: Current every day smoker Tobacco Type: Cigarettes and E-cigarettes / Vaping Cigarettes Per Day: 30 (1.5 pack a day).; Second Hand Exposure: No; Do You Dip or Chew Tobacco: No; Hx Alcohol Use: Yes Alcohol type: beer and hard liquor Hx Substance Use: Yes Last Used Substance: Unknown Preferred Language: Estonian Communication Ability: Effective Generator Rebuilder Required: No Beliefs That Will Affect Care: None marital status: Single Current Living Situation: Other Current Living Situation Comment: Roomate. current occupational status: employed How many Children do You have: 0 Feels Safe at Home: Yes during the past year weight has: remained stable Assistive Devices: None Allergies Allergies Allergy/AdvReac Type Severity Reaction Status Date / Time No Known Allergies Allergy Verified 07/26/24 20:22 Home Meds Home Medications Medication Instructions Recorded Confirmed fluoxetine 10 mg capsule 20 mg PO QAM 07/17/24 07/26/24 hydroxyzine pamoate 50 mg capsule 50 mg PO TID PRN Anxiety 07/17/24 07/26/24 folic acid 1 mg tablet 1 mg PO QAM 07/20/24 07/26/24 thiamine HCl (vitamin B1) 100 mg 100 mg PO QAM 07/20/24 07/26/24 tablet Previous Rx's Medication Instructions Recorded apixaban 2.5 mg tablet (Eliquis) 2.5 mg PO BID 45 days #90 tabs 07/17/24 Results & Data (ED) Vital Signs Vital Signs - 24 hr 07/26/24 18:49 07/26/24 20:18 07/26/24 22:08 Temperature 36.4 C Temperature Source Oral Pulse Rate 92 H Pulse Rate [Finger] 92 H 73 Respiratory Rate 18 20 16 Respiratory Effort / Characteristics Respiratory Depth Respiratory Pattern Blood Pressure 128/80 Blood Pressure [Right Arm] 113/74 104/52 L Blood Pressure Mean 96 Blood Pressure Mean [Right Arm] 87 69 Blood Pressure Position [Right Arm] Pulse Oximetry 93 96 94 Oxygen Delivery Method Room Air Room Air Room Air Sepsis Recent Fever Within 48 Hours No Sepsis New/Unexplained Change in Mental Status No Sepsis Action Taken by Nursing No Action Required 07/27/24 00:00 Temperature Temperature Source Pulse Rate Pulse Rate [Finger] 81 Respiratory Rate 18 Respiratory Effort / Characteristics Non-Labored Spontaneous Respiratory Depth Normal Respiratory Pattern Regular Blood Pressure Blood Pressure [Right Arm] 101/59 L Blood Pressure Mean Blood Pressure Mean [Right Arm] 73 Blood Pressure Position [Right Arm] Sitting Pulse Oximetry 95 Oxygen Delivery Method Room Air Sepsis Recent Fever Within 48 Hours Sepsis New/Unexplained Change in Mental Status Sepsis Action Taken by Nursing Laboratory Data 07/26/24 19:09 07/26/24 19:09 Lab Results 07/26/24 07/26/24 07/26/24 Range/Units 18:48 19:09 19:14 WBC 6.95 (4.8-10.8) K/ul RBC 5.11 (4.70-6.10) M/uL Hgb 16.8 (14.0-18.0) g/dl Hct 46.6 (42.0-52.0) % MCV 91.2 (80.0-100.0) fL MCH 32.9 (25.0-34.0) pg MCHC 36.1 H (32.0-36.0) g/dL RDW Std Deviation 36.1 L (36.4-46.3) fL RDW Coeff of Sabi 10.6 L (11.5-14.5) % Plt Count 479 H (130-400) K/uL MPV 7.9 L (9.4-12.4) fL Immature Gran % (Auto) 0.1 % Neut % (Auto) 51.9 % Lymph % (Auto) 36.7 % [place] % (Auto) 10.4 % Eos % (Auto) 0.6 % Baso % (Auto) 0.3 % Neut # (Auto) 3.61 (1.40-6.50) K/uL Lymph # (Auto) 2.55 (1.20-3.40) K/uL [place] # (Auto) 0.72 H (0.11-0.59) K/uL Eos # (Auto) 0.04 (0.00-0.50) K/uL Baso # (Auto) 0.02 (0.00-0.20) K/uL Immature Gran # (Auto) 0.01 (0.01-0.20) K/uL Sodium 139 (136-145) mmol/L Potassium 4.2 (3.5-5.1) mmol/L Chloride 97 L (98-107) mmol/L Carbon Dioxide 29 (21-32) mmol/L Anion Gap 13 H (3-11) BUN 6 (6-23) mg/dl Creatinine 0.92 (0.6-1.4) mg/dl Est Cr Clr Drug Dosing Not Reportable eGFR 117.65 BUN/Creatinine Ratio 6.5 L (10-20) Glucose 93 (70-99(Fasting)) mg/dl Calcium 10.0 (8.6-10.3) mg/dl Total Bilirubin 0.7 (0.2-1.0) mg/dl AST 47 H (13-39) U/L ALT 37 (7-52) U/L Alkaline Phosphatase 74 (34-104) U/L Total Protein 8.7 H (6.0-8.3) gm/dl Albumin 5.4 H (3.4-5.0) gm/dl Globulin 3.3 (2.5-4.0) gm/dl Albumin/Globulin Ratio 1.6 (0.9-2) TSH 1.671 (0.300-4.500) uIu/ml Urine Color Yellow Urine Appearance Clear (Clear) Urine pH 5.5 (4.5-7.5) Ur Specific [place] 1.004 (1.000-1.030) Urine Protein Negative (Negative) Urine Glucose (UA) Negative (Negative) Urine Ketones Negative (Negative) Urine Blood Negative (Negative) Urine Nitrite Negative (Negative) Urine Bilirubin Negative (Negative) Urine Urobilinogen Negative (Negative) Ur Leukocyte Esterase Negative (Negative) Salicylates < 3.0 L (3.0-30) mg/dl Urine Opiates Screen Neg (Neg) Ur Methadone, Qual Neg (Neg) Urine Fentanyl Screen Neg (Neg) Acetaminophen < 3 L (10-30) ug/ml Urine Barbiturates Neg (Neg) Ur Phencyclidine (PCP) Neg (Neg) U Amphetamin/Meth Scrn Neg (Neg) MDMA (Ecstasy) Screen Neg (Neg) U Benzodiazepines Scrn Neg (Neg) Ur Cocaine Metabolite Neg (Neg) U Marijuana (THC) Screen Pos H (Neg) Ethyl Alcohol mg/dL 319.6 H (<10.0) mg/dl SARS-CoV-2, RNA, NAAT NEGATIVE (NEGATIVE) Administered Medications Discontinued Medications Lorazepam (Lorazepam 1 Mg Tab) 1 mg PO NOW STA Stop: 07/26/24 20:00 Last Admin: 07/26/24 23:06 Dose: Not Given Documented By: CRISTIN Lorazepam (Lorazepam 1 Mg Tab) 1 mg PO NOW STA Stop: 07/27/24 01:25 Last Admin: 07/27/24 01:33 Dose: 1 mg Documented By: MIKY Nicotine (Nicotine 21 Mg/24 Hr Tdsy) Confirm Administered Dose 1 patch TD .STK- MED ONE Stop: 07/27/24 01:16 Last Admin: 07/27/24 01:27 Dose: 1 patch Documented By: MIKY Discharge Plan Visit Data Chief Complaint: Mental Health Evaluation Stated Complaint: MHID, PAIN ED Provider: Guillermo Phillips Discharge Problem: Alcohol withdrawal Forms Stand Alone Forms: My [facility], Suicide Prevention Resources Prescriptions Prescriptions: No Action hydroxyzine pamoate 50 mg capsule 50 mg PO TID PRN (Reason: Anxiety) fluoxetine 10 mg capsule 20 mg PO QAM Eliquis 2.5 mg tablet 2.5 mg PO BID 45 Days Qty: 90 0RF thiamine HCl (vitamin B1) 100 mg tablet 100 mg PO QAM folic acid 1 mg tablet 1 mg PO QAM Referrals Referrals: Marcellus Mojica MD [Outside Practitioners] -
[2024-07-26 19:15] LABS: Appearance Urine Clear (Clear); Bilirubin Urine Negative (Negative); Blood Urine Negative (Negative); Color Urine Yellow; Glucose Urine UA Negative (Negative); Ketones Urine Negative (Negative); Leukocyte Esterase Urine Negative (Negative); Nitrite Urine Negative (Negative); Protein Urine Negative (Negative); Specific Gravity Urine 1.004 (1.000-1.030); Urobilinogen Urine Negative (Negative); pH Urine 5.5 (4.5-7.5)
[2024-07-26 19:21] LABS: Basophils # (auto) 0.02 K/uL (0.00-0.20); Basophils % (auto) 0.3 %; Eosinophils # (auto) 0.04 K/uL (0.00-0.50); Eosinophils % (auto) 0.6 %; Hematocrit (blood only) 46.6 % (42.0-52.0); Hemoglobin 16.8 g/dl (14.0-18.0); Immature Granulocytes # (auto) 0.01 K/uL (0.01-0.20); Immature Granulocytes % (auto) 0.1 %; Lymphocytes # (auto) 2.55 K/uL (1.20-3.40); Lymphocytes % (auto) 36.7 %; Mean Corpuscular Hemoglobin 32.9 pg (25.0-34.0); Mean Corpuscular Hgb Conc 36.1 g/dL (32.0-36.0); Mean Corpuscular Volume 91.2 fL (80.0-100.0); Mean Platelet Volume 7.9 fL (9.4-12.4); Monocytes # (auto) 0.72 K/uL (0.11-0.59); Monocytes % (auto) 10.4 %; Neutrophils # (auto) 3.61 K/uL (1.40-6.50); Neutrophils % (auto) 51.9 %; Platelet Count 479 K/uL (130-400); RDW Coefficient of Variation 10.6 % (11.5-14.5); RDW Standard Deviation 36.1 fL (36.4-46.3); Red Blood Count 5.11 M/uL (4.70-6.10); White Blood Count 6.95 K/ul (4.8-10.8)
[2024-07-26 19:35] LABS: Amphetamines+Metham, Urine Neg (Neg); Barbiturates, Urine Neg (Neg); Benzodiazepine, Urine Neg (Neg); Cocaine, Urine Neg (Neg); Fentanyl, Urine Neg (Neg); MDMA (Ecstacy), Urine Neg (Neg); Marijuana, Urine Pos (Neg); Methadone, Urine Neg (Neg); Opiate, Urine Neg (Neg); Phencyclidine, Urine Neg (Neg)
[2024-07-26 19:37] LABS: Acetaminophen < 3 ug/ml (10-30); Salicylate < 3.0 mg/dl (3.0-30)
[2024-07-26 19:40] LABS: Alanine Aminotransferase 37 U/L (7-52); Albumin Globulin Ratio 1.6 (0.9-2); Albumin Level 5.4 gm/dl (3.4-5.0); Alkaline Phosphatase 74 U/L (34-104); Anion Gap 13 (3-11); Aspartate Aminotransferase 47 U/L (13-39); BUN Creatinine Ratio 6.5 (10-20); Bilirubin,Total 0.7 mg/dl (0.2-1.0); Blood Urea Nitrogen 6 mg/dl (6-23); Carbon Dioxide 29 mmol/L (21-32); Chloride 97 mmol/L (98-107); Globulin 3.3 gm/dl (2.5-4.0); Glucose 93 mg/dl (70-99(Fasting)); Potassium 4.2 mmol/L (3.5-5.1); Sodium 139 mmol/L (136-145); Total Protein 8.7 gm/dl (6.0-8.3)
[2024-07-26 19:56] LABS: Thyroid Stimulating Hormone 1.671 uIu/ml (0.300-4.500)
[2024-07-26] MEDS: LORazepam 1 MG TAB PO STA (23:06)
[2024-07-27] MEDS: NICOTINE 21 MG/24 HR TDSY TD SCH (01:25)
[2024-07-27] MEDS: NICOTINE 21 MG/24 HR TDSY TD ONE (01:27)
[2024-07-27] MEDS: LORazepam 1 MG TAB PO STA (01:33)
[2024-07-27 02:36] VITALS: TEMP 98.1
[2024-07-27] MEDS: LORazepam 1 MG TAB SL STA (03:27)
--- NOTE | 2024-07-27 03:40 | History & Physical Report ---
Date of Service July 27, 2024 Assessment & Plan (1) Alcohol withdrawal: Plan: 24-year-old male with past medical history significant for alcohol withdrawal seizures last admission, superficial venous thrombosis of arm, ongoing alcoholism, GERD anxiety with panic attacks, alcoholic gastritis was brought in because of ongoing alcoholism and threats made to his mother about suicidal ideation. Patient currently denies any suicidal thoughts. Today he had some headache. Says his mood is not great. States has some anxiety. Says drinking 10 beers daily. Appetite is okay. No runny nose or sore throat. No cough. No fevers. No chest pain or shortness of breath. No nausea or vomiting. Normal bowel and bladder movements. Patient in recent last admission MRI brain was done because of seizures and found to have cystic lesion in the right hemisphere region. Neurology recommended neurosurgery follow-up and MRI brain with and without contrast in 1 month. Patient says has appoint with neurosurgery next Sunday. Alcohol withdrawal Alcohol level 319 Last admission had seizures thought to be from alcohol Patient thinks seizures are from gabapentin We will place him on Librium protocol and Ativan as needed Continue home thiamine and folic acid Multivitamin Close monitor Suicidal ideation One-on-one Suicide precautions Psychiatry consult Superficial venous thrombus On Eliquis Anxiety and panic attacks On paroxetine DVT prophylaxis On Eliquis Disposition Telemetry Full code. History of Present Illness Chief Complaint: Alcoholism and suicidal ideation Primary Care Provider: NO PCP 24-year-old male with past medical history significant for alcohol withdrawal seizures last admission, superficial venous thrombosis of arm, ongoing alcoholism, GERD anxiety with panic attacks, alcoholic gastritis was brought in because of ongoing alcoholism and threats made to his mother about suicidal ideation. Patient currently denies any suicidal thoughts. Today he had some headache. Says his mood is not great. States has some anxiety. Says drinking 10 beers daily. Appetite is okay. No runny nose or sore throat. No cough. No fevers. No chest pain or shortness of breath. No nausea or vomiting. Normal bowel and bladder movements. Patient in recent last admission MRI brain was done because of seizures and found to have cystic lesion in the right hemisphere region. Neurology recommended neurosurgery follow-up and MRI brain with and without contrast in 1 month. Patient says has appoint with neurosurgery next Sunday. Past medical history. As mentioned above. Past surgical history. EGD with endoscopic ultrasound. Social history. No smoking. Alcohol drinking 10 beers daily. Smokes marijuana as per records. Family history. No famished on file. Allergies Allergy/AdvReac Type Severity Reaction Status Date / Time No Known Allergies Allergy Verified 07/26/24 20:22 Home Medications Medication Instructions Recorded Confirmed Type apixaban 2.5 mg tablet (Eliquis) 2.5 mg PO BID 45 days #90 tabs 07/17/24 07/26/24 Rx fluoxetine 10 mg capsule 20 mg PO QAM 07/17/24 07/26/24 History hydroxyzine pamoate 50 mg capsule 50 mg PO TID PRN Anxiety 07/17/24 07/26/24 History folic acid 1 mg tablet 1 mg PO QAM 07/20/24 07/26/24 History thiamine HCl (vitamin B1) 100 mg 100 mg PO QAM 07/20/24 07/26/24 History tablet Past Med/Surg History Problem List (Updated 07/27/24 @ 01:40 by Guillermo Phillips DO) Alcohol withdrawal (Acute) Seizure Alcoholic gastritis Generalized anxiety disorder with panic attacks Hypokalemia Alcohol withdrawal seizure (Acute) History of alcohol abuse (Acute) Arm pain, left (Acute) Superficial venous thrombosis of arm (Acute) Alcohol withdrawal Alcohol abuse Anxiety and depression Bradycardia Change in mental status Hypoglycemia (Acute) Blow out fracture of orbit with routine healing Alcoholism Acute pancreatitis (Acute) Cast discomfort (Acute) Surgical History H/O esophagogastroduodenoscopy 2021 Family History Mother Breast cancer Social History Smoking Status: Current some day smoker Tobacco Type: E-cigarettes / Vaping Cigarettes Per Day: 30 (1.5 pack a day).; Second Hand Exposure: No; Do You Dip or Chew Tobacco: No; Hx Alcohol Use: Yes Alcohol type: beer and hard liquor Hx Substance Use: No Preferred Language: Hong Konger Communication Ability: Effective Youth Career Specialist Required: No Beliefs That Will Affect Care: None marital status: Single Current Living Situation: Other Current Living Situation Comment: Roomate. current occupational status: employed How many Children do You have: 0 Feels Safe at Home: Yes Safety Concerns: Feels Safe At This Time during the past year weight has: remained stable Assistive Devices: Glasses Review of Systems Review of Systems: All systems reviewed & are unremarkable except as noted in HPI & below Physical Exam Physical Exam: General- Not in distress Head- atraumatic Eyes- PERRL. ENT- oropharynx clear Neck- supple, no JVD. Lungs- clear to auscultation no wheezing or crackles Heart- regular rate and rhythm; no murmur, no gallop. Abdomen- normal bowel sounds, soft, nontender, no distension Extremities- no pretibial edema, no erythema seen Neuro- alert, oriented PERRL, no facial palsy; no dysarthria; moves extremities Results & Data Results & Data Vital Signs (Past 12 Hours) Vital Signs Temp Pulse Pulse Resp BP BP Pulse Ox 07/27/24 02:00 36.7 C 73 18 117/78 95 07/27/24 01:43 56 L 07/27/24 00:00 81 18 101/59 L 95 07/26/24 22:08 73 16 104/52 L 94 07/26/24 20:18 92 H 20 113/74 96 07/26/24 18:49 36.4 C 92 H 18 128/80 93 O2 Del Method 07/27/24 02:00 Room Air 07/27/24 01:43 07/27/24 00:00 Room Air 07/26/24 22:08 Room Air 07/26/24 20:18 Room Air 07/26/24 18:49 Room Air Diagnostic Findings Laboratory Results WBC 6.95 K/ul (4.8-10.8) 07/26/24 19:09 RBC 5.11 M/uL (4.70-6.10) 07/26/24 19:09 Hgb 16.8 g/dl (14.0-18.0) 07/26/24 19:09 Hct 46.6 % (42.0-52.0) 07/26/24 19:09 MCV 91.2 fL (80.0-100.0) 07/26/24 19:09 MCH 32.9 pg (25.0-34.0) 07/26/24 19:09 MCHC 36.1 g/dL (32.0-36.0) H 07/26/24 19:09 RDW Std Deviation 36.1 fL (36.4-46.3) L 07/26/24 19:09 RDW Coeff of Sabi 10.6 % (11.5-14.5) L 07/26/24 19:09 Plt Count 479 K/uL (130-400) H 07/26/24 19:09 MPV 7.9 fL (9.4-12.4) L 07/26/24 19:09 Immature Gran % (Auto) 0.1 % 07/26/24 19:09 Neut % (Auto) 51.9 % 07/26/24 19:09 Lymph % (Auto) 36.7 % 07/26/24 19:09 [place] % (Auto) 10.4 % 07/26/24 19:09 Eos % (Auto) 0.6 % 07/26/24 19:09 Baso % (Auto) 0.3 % 07/26/24 19:09 Neut # (Auto) 3.61 K/uL (1.40-6.50) 07/26/24 19:09 Lymph # (Auto) 2.55 K/uL (1.20-3.40) 07/26/24 19:09 [place] # (Auto) 0.72 K/uL (0.11-0.59) H 07/26/24 19:09 Eos # (Auto) 0.04 K/uL (0.00-0.50) 07/26/24 19:09 Baso # (Auto) 0.02 K/uL (0.00-0.20) 07/26/24 19:09 Immature Gran # (Auto) 0.01 K/uL (0.01-0.20) 07/26/24 19:09 Sodium 139 mmol/L (136-145) 07/26/24 19:09 Potassium 4.2 mmol/L (3.5-5.1) 07/26/24 19:09 Chloride 97 mmol/L (98-107) L 07/26/24 19:09 Carbon Dioxide 29 mmol/L (21-32) 07/26/24 19:09 Anion Gap 13 (3-11) H 07/26/24 19:09 BUN 6 mg/dl (6-23) 07/26/24 19:09 Creatinine 0.92 mg/dl (0.6-1.4) 07/26/24 19:09 Est Cr Clr Drug Dosing Not Reportable 07/26/24 19:09 eGFR 117.65 07/26/24 19:09 BUN/Creatinine Ratio 6.5 (10-20) L 07/26/24 19:09 Glucose 93 mg/dl (70-99(Fasting)) 07/26/24 19:09 Calcium 10.0 mg/dl (8.6-10.3) 07/26/24 19:09 Total Bilirubin 0.7 mg/dl (0.2-1.0) 07/26/24 19:09 AST 47 U/L (13-39) H 07/26/24 19:09 ALT 37 U/L (7-52) 07/26/24 19:09 Alkaline Phosphatase 74 U/L (34-104) 07/26/24 19:09 Total Protein 8.7 gm/dl (6.0-8.3) H 07/26/24 19:09 Albumin 5.4 gm/dl (3.4-5.0) H 07/26/24 19:09 Globulin 3.3 gm/dl (2.5-4.0) 07/26/24 19:09 Albumin/Globulin Ratio 1.6 (0.9-2) 07/26/24 19:09 TSH 1.671 uIu/ml (0.300-4.500) 07/26/24 19:09 Urine Color Yellow 07/26/24 18:48 Urine Appearance Clear (Clear) 07/26/24 18:48 Urine pH 5.5 (4.5-7.5) 07/26/24 18:48 Ur Specific [place] 1.004 (1.000-1.030) 07/26/24 18:48 Urine Protein Negative (Negative) 07/26/24 18:48 Urine Glucose (UA) Negative (Negative) 07/26/24 18:48 Urine Ketones Negative (Negative) 07/26/24 18:48 Urine Blood Negative (Negative) 07/26/24 18:48 Urine Nitrite Negative (Negative) 07/26/24 18:48 Urine Bilirubin Negative (Negative) 07/26/24 18:48 Urine Urobilinogen Negative (Negative) 07/26/24 18:48 Ur Leukocyte Esterase Negative (Negative) 07/26/24 18:48 Salicylates < 3.0 mg/dl (3.0-30) L 07/26/24 19:09 Urine Opiates Screen Neg (Neg) 07/26/24 18:48 Ur Methadone, Qual Neg (Neg) 07/26/24 18:48 Urine Fentanyl Screen Neg (Neg) 07/26/24 18:48 Acetaminophen < 3 ug/ml (10-30) L 07/26/24 19:09 Urine Barbiturates Neg (Neg) 07/26/24 18:48 Ur Phencyclidine (PCP) Neg (Neg) 07/26/24 18:48 U Amphetamin/Meth Scrn Neg (Neg) 07/26/24 18:48 MDMA (Ecstasy) Screen Neg (Neg) 07/26/24 18:48 U Benzodiazepines Scrn Neg (Neg) 07/26/24 18:48 Ur Cocaine Metabolite Neg (Neg) 07/26/24 18:48 U Marijuana (THC) Screen Pos (Neg) H 07/26/24 18:48 Ethyl Alcohol mg/dL 319.6 mg/dl (<10.0) H 07/26/24 19:09 SARS-CoV-2, RNA, NAAT NEGATIVE (NEGATIVE) 07/26/24 19:14 Code Status & VTE Plan VTE Prophylaxis Plan VTE Prophylaxis will be ordered: Yes
[2024-07-27] MEDS ORDERED: LORazepam 2 MG/1 ML VIAL IV PRN ×2 (05:40)
[2024-07-27] MEDS ORDERED: Ativan IV Alcohol Withdrawal--Active Protocol IV PRN (05:40)
[2024-07-27] MEDS ORDERED: chlordiazePOXIDE ALCOHOL WITHDRAWL 50MG PO STA (05:40)
[2024-07-27] MEDS: SODIUM CHLORIDE 0.9% 1,000 ML IV SCH (06:17)
[2024-07-27] MEDS: chlordiazePOXIDE HCl 25 MG CAP PO SCH (06:18)
[2024-07-27] MEDS: hydrOXYzine HCl 25 MG TAB PO PRN (08:59)
[2024-07-27] MEDS: MULTIVITAMIN TAB PO SCH (09:40)
[2024-07-27] MEDS: THIAMINE HCL 100 MG TAB PO SCH (09:40)
[2024-07-27] MEDS: APIXABAN 2.5 MG TAB PO SCH (09:40)
[2024-07-27] MEDS: FOLIC ACID 1 MG TAB PO SCH (09:40)
[2024-07-27] MEDS: FLUoxetine HCL 20 MG CAP PO SCH (09:40)
[2024-07-27] MEDS: LORazepam 2 MG/1 ML VIAL IV PRN (09:48)
--- NOTE | 2024-07-27 10:37 | Communication Note ---
Date of Service: July 27, 2024 Patient was seen and clinically examined, he was admitted overnight with binge drinking and suicidal behavior, today he seems to be more reasonable, he denies having any suicidal thoughts, he stated that he has access to a gun which he keeps in his safe under his bed. He lives with his aunt. Apparently he has been seeing a psychiatrist at [facility] and has recently underwent increase in the dose of his Prozac. Since this requires more time to show efficacy, we have recommended that in the meantime he surrender his gun and he was accepting to the idea. He will talk to his mother in regard to this. He will be monitored overnight however I am expecting that very soon probably tomorrow he will be ready for discharge from medical standpoint, at which time we need to make sure that he surrender his gun to another person until his treatment is concluded.
--- NOTE | 2024-07-27 12:02 | Psychiatric Consultation ---
Date of Consultation July 27, 2024 Impression / Recommendations Impression Diagnostically consistent with alcohol use disorder as well as unspecified anxiety and possibly unspecified depression likely a combination of substance- induced as well as FUAD. Acute risk of self-harm is low given denial of SI and no longer with intoxication, future-oriented and states strong deterrents. Chronic risk of self-harm and harm to others is slightly increased and moderate due to substance use with substance use treatment being the most significant modifiable risk factor to reduce acute and chronic risk. Counseled on ways to reduce acute and chronic risk including engaging with outpatient providers, utilizing supports, taking medication, using coping skills and motivational interviewing regarding substance use. He is not interested in residential treatment at this time nor [facility] nor outpatient services to help with anxiety and substance use. States possible willingness to consider naltrexone in the future for medication assisted treatment. He doesn't meet 302 criteria and agree with disposition of 302 warrant as he is denying SI, denies HI, is able to speak to how he meets his basic needs, denies and doesn't show evidence for any major mood symptoms and is not an imminent danger to self or others and does not meet criteria for involuntary psychiatric commitment. Overall, I spent a total of 65 minutes with this case including review of chart records, review of labwork, direct evaluation of the patient at bedside, counseling the patient, discussion of the patient with the hospitalist provider, discussion with the psychiatric liason during clinical rounds, review of collateral historian information from the family and documentation in the electronic health record. (1) Alcohol use disorder, moderate, dependence: (2) Anxiety disorder, unspecified: Plan -Does not meet 302 criteria, can leave AMA if he requests this -Agree with AWSS -Would start naltrexone 50mg daily for alcohol use disorder -Could consider use of gabapentin for off-label use for anxiety and alcohol use disorder and harm reduction strategy once he is able to reduce his alcohol use (risk for fatal respiratory suppression if combined with alcohol) -He declines all other interventions offered: * Offered voluntary inpatient or outpatient psychiatric treatment: he declines * Offered residential substance use treatment: he declines * Offered dual diagnosis IOP or outpatient therapy at [facility]: he declines * Offered changes to his psychiatric medication, i.e. increasing dose of fluoxetine, alternative options for panic attacks: he declines -Psych liason met with patient and his mother to confirm guns are secured/will be secured (he gave family combination for his gun safe) -Reviewed Crisis information and resources. Recommended he return to the hospital or contact 911 if he does not improve, his mood worsens or he feels unsafe which he agrees to Psych History Identifying Data 24 yo man with a history of alcohol use disorder, alcohol withdrawal seizures, superficial venous thrombosis of arm, GERD anxiety with panic attacks, alcoholic gastritis admitted for alcohol use and statements of SI to his mother. Psychiatry consulted for risk assessment and alcohol use. Chief Complaint "My anxiety can get pretty bad". History of Present Illness Daniele was brought to the hospital after making statement of suicide to his mother and reportedly also statement of plan of shooting himself to a friend. Once in the emergency department he endorsed history of chronic intermittent SI but denied any plan and was placed on a 302 warrant when he demanded to leave prior to being clinically sober to allow for an assessment. This morning he was able to participate in an assessment and was seen by psych liason and hospitalist provider. He denied SI once sober and 302 warrant was dispositioned. On my assessment mid-morning he continues to adamantly deny SI. He feels this resolved since he is no longer intoxicated. States strong deterrents of family and friends. States he has three guns at home but agrees to allow psych liason to ensure these are secured. Initially states his gun safe used biometrics but later provided code to his mother. States he had one gun out of his safe to clean it recently. We discussed risks of gun access while drinking, especially if he experiences SI while drinking. He states understanding of these risks and is agreeable to having family remove all of his guns. Reports high levels of anxiety all of his life. Thinks that he develops SI at times when he has panic attacks which have been occurring as he tries to reduce his alcohol use. Discussed pathophysiology of this, encouraged involvement of additional supports like inpatient hospitalization to ensure his anxiety is better managed. He is not interested in this. States he did start fluoxetine recently and is finding this somewhat helpful (has been about 1 month). He is not interested in trying a dose increase. Denies any prior suicide attempts nor inpatient psychiatric hospitalization. Has a therapist via [facility]. Has been drinking 10 drinks per day. Estimates he has 0.5 pint to 1 pint daily of liquor. History of residential treatment, stayed for three days, at [facility] about one year ago. Motivational interviewing done. He likes that alcohol helps with anxiety, dislikes that it gives him no appetite. Rates his motivation to stop drinking as 5 or 6 out of 10. Rates it as in the middle because he's not sure if he wants to stop drinking. Allergies Allergy/AdvReac Type Severity Reaction Status Date / Time No Known Allergies Allergy Verified 07/26/24 20:22 Home Medications Medication Instructions Recorded Confirmed Type apixaban 2.5 mg tablet (Eliquis) 2.5 mg PO BID 45 days #90 tabs 07/17/24 07/26/24 Rx fluoxetine 10 mg capsule 20 mg PO QAM 07/17/24 07/26/24 History hydroxyzine pamoate 50 mg capsule 50 mg PO TID PRN Anxiety 07/17/24 07/26/24 History folic acid 1 mg tablet 1 mg PO QAM 07/20/24 07/26/24 History thiamine HCl (vitamin B1) 100 mg 100 mg PO QAM 07/20/24 07/26/24 History tablet Patient History Surgical History H/O esophagogastroduodenoscopy 2021 Family History Mother Breast cancer Social History Smoking Status: Current some day smoker Tobacco Type: E-cigarettes / Vaping Cigarettes Per Day: 30 (1.5 pack a day).; Second Hand Exposure: No; Do You Dip or Chew Tobacco: No; Hx Alcohol Use: Yes Alcohol type: beer and hard liquor Hx Substance Use: No Preferred Language: Indian Communication Ability: Effective Infertility Nurse Required: No Beliefs That Will Affect Care: None marital status: Single Current Living Situation: Other Current Living Situation Comment: Roomate. current occupational status: employed How many Children do You have: 0 Feels Safe at Home: Yes Safety Concerns: Feels Safe At This Time during the past year weight has: remained stable Assistive Devices: Glasses Physical Exam Psychiatric: Orientation: alert and oriented x 3 Apperance: appropriately dressed and appropriately groomed Eye Contact: + fair eye contact Motor Behavior: no abnormal motor movements Speech: normal rate/rhythm/volume of speech Affect: + constricted affect Mood: + anxious mood; no depressed mood (denies) Thought Process: linear/logical thought process Thought Content: reality based without delusions Suicidal Thoughts: denies suicidal thoughts, denies suicidal plan and denies suicidal intent Homicidal Thoughts: denies homicidal thoughts Hallucinations: no auditory hallucinations and no visual hallucinations Cognition: recent memory grossly intact, remote memory grossly intact, attention grossly intact and language grossly intact Estimated Intelligence: consistent with education level Insight: + limited insight Judgment: + limited judgement Vital Signs (Past 24 Hours): Last Vital Signs Temp 36.7 C 07/27/24 02:00 Pulse 107 H 07/27/24 10:00 Resp 17 07/27/24 10:00 BP 116/81 07/27/24 10:00 Pulse Ox 96 07/27/24 10:00 O2 Del Method Room Air 07/27/24 10:00 Results & Data (PSY) Medications Administered Apixaban (Apixaban 2.5 Mg Tab) 2.5 mg PO BID [facility] Stop: 08/26/24 08:59 Last Admin: 07/27/24 09:40 Dose: Not Given Documented By: EDUARDO Chlordiazepoxide HCl (Chlordiazepoxide Hcl 25 Mg Cap) 50 mg PO Q6H [facility] Stop: 07/28/24 00:01 Last Admin: 07/27/24 06:18 Dose: 50 mg Documented By: DESTINI Fluoxetine HCl (Fluoxetine Hcl 20 Mg Cap) [facility] Stop: 08/26/24 08:59 Last Admin: 07/27/24 09:40 Dose: 20 mg Documented By: EDUARDO Folic Acid (Folic Acid 1 Mg Tab) [facility] Stop: 08/26/24 08:59 Last Admin: 07/27/24 09:40 Dose: 1 mg Documented By: EDUARDO Hydroxyzine HCl (Hydroxyzine Hcl 25 Mg Tab) 50 mg PO TID PRN PRN Reason: Anxiety Stop: 08/26/24 05:39 Last Admin: 07/27/24 08:59 Dose: 50 mg Documented By: EDUARDO Lorazepam (Lorazepam 2 Mg/1 Ml Vial) 1 mg IV UD PRN; Protocol PRN Reason: EtOH Withdrawal AWSS Score 6,7 Stop: 08/26/24 05:39 Last Admin: 12/08/24 09:48 Dose: 1 mg Documented By: EDUARDO Miscellaneous (Remove Nicoderm Patch) 1 each N/A DAILY@[id number] [facility] Stop: 08/26/24 08:58 Last Admin: 07/27/24 10:23 Dose: 1 each Documented By: EDUARDO Multivitamins (Multivitamin Tab) 1 [facility] Stop: 08/26/24 08:59 Last Admin: 07/27/24 09:40 Dose: 1 tab Documented By: EDUARDO Nicotine (Nicotine 21 Mg/24 Hr Tdsy) 1 patch TD [facility] Stop: 08/26/24 08:59 Last Admin: 07/27/24 09:01 Dose: 1 patch Documented By: EDUARDO Thiamine HCl (Thiamine Hcl 100 Mg Tab) 100 mg PO [facility] Stop: 08/26/24 08:59 Last Admin: 07/27/24 09:40 Dose: 100 mg Documented By: EDUARDO Coding Level of Care Code 53773 IN/OBS CONSULT LVL 4,60M Diagnoses Alcohol use disorder, moderate, dependence F10.20 Anxiety disorder, unspecified F41.9
--- NOTE | 2024-07-27 13:12 | Discharge Summary ---
Discharge Summary Date of Service July 27, 2024 Principal Dx & Hospital Course #1 = Principal Diagnosis (1) Alcohol withdrawal: (2) Major depression: Notes For Next Care Provider Medication Changes From Visit No change Admission HPI Per Admitting Provider 24-year-old male with past medical history significant for alcohol withdrawal seizures last admission, superficial venous thrombosis of arm, ongoing alcoholism, GERD anxiety with panic attacks, alcoholic gastritis was brought in because of ongoing alcoholism and threats made to his mother about suicidal ideation. Patient currently denies any suicidal thoughts. Today he had some headache. Says his mood is not great. States has some anxiety. Says drinking 10 beers daily. Patient was placed on the alcohol withdrawal protocol, remained stable overnight, last night patient made some suicidal comments, he was seen by psychiatric liaison and psychiatrist and myself and overall at this point patient does not appear to be suicidal, I guess when he made comments, he was under influence. At this point he is stable.Apparently he has been seeing a psychiatrist at [facility] and has recently underwent increase in the dose of his Prozac. Since this requires more time to show efficacy, we have recommended that in the meantime he surrender his gun and he was accepting to the idea. He will talk to his mother in regard to this. Patient stated that he would like to sign AMA, this was coordinated with staff including behavioral liaison and ED nursing staff, no objection for that to resume his own medication with follow-up by psychiatry as outpatient. His mother was made aware of our intention of removing gun from his access. Updated Medication List Medication Instructions Recorded Confirmed Type apixaban 2.5 mg tablet (Eliquis) 2.5 mg PO BID 45 days #90 tabs 07/17/2403/12 Rx fluoxetine 10 mg capsule 20 mg PO QAM 07/17/24 07/26/24 History hydroxyzine pamoate 50 mg capsule 50 mg PO TID PRN Anxiety 07/17/24 07/26/24 History folic acid 1 mg tablet 1 mg PO QAM 07/20/24 07/26/24 History thiamine HCl (vitamin B1) 100 mg 100 mg PO QAM 07/20/24 07/26/24 History tablet Hospital Stay Data Consultations 07/27/24 01:35 ED Decision to Admit Stat 07/27/24 09:00 Consult Psychiatry Routine Pending Results Patient Have Any Pending Studies at Discharge: No Total Time Total Time Spent Total Time Spent (In Minutes): More than 45 minutes
[2024-07-27 13:30] VITALS: BP 121/79; PULSE 104; RESP 20; O2SAT 99
--- OUTSIDE RECORDS SUMMARY | 2024-07-28 05:22 | External Medical Summary | Summary of Care ---
Author Name Unknown Organization [facility] Address [address] [place] [address] Phone [phone] Care Team Providers Care Audio Visual Equipment Rental Clerk Name Role Phone Mike Johnson DO Primary Care Provider [phone] Reason for Visit * Reason Onset Date Comments Forms Request 07/14/2024 Encounter Details Date Type Department Care Team (Late st Contact Info) Description 07/14/2024 Telephone Family Practice [facility] [address] [facility] [place] [address] Mike Johnson DO [address] [place] [address] Forms Request Allergies No known active allergiesdocumented as of this encounter (statuses as of 07/23/2024) Medications Ibuprofen 200 MG Oral Tablet (Motrin) [...] morning 60 Capsule 1 06/17/20 24 Active Neomycin-Polymy misty-Dexameth [id number] Ophthalmic Ointment (Maxitrol) Instill into the left [...] 9-10 30 Tablet 07/11/20 23 024 Discontinued Propranolol HCl 10 MG Oral Tablet (Inderal)Indica tions:Generaliz ed anxiety disorder,Panic disorder Take 1-2 tablets as needed up to twice daily for anxiety 60 Tablet 1 06/17/20 24 024 Discontinued(Ia dication List Clean Up) documented as of this encounter (statuses as of 07/23/2024) Active Problems Problem Noted Date Diagnosed Date Panic attacks 05/16/2022 documented as of this encounter (statuses as of 07/23/2024) Immunizations Name Administration Dates Next Due DTaP [...] encounter Miscellaneous Notes * Telephone Encounter - Benita Gonsalez LPN - 07/23/2024 12:44 PM EST Completed forms faxed; confirmation received. A copy sent for scanning and copy left on [facility]'s desk. Portal message sent with completed forms attached as well. * Telephone Encounter - Mike Johnson DO - 07/23/2024 10:47 AM EST Forms completed today. Will bring to you to fax * Telephone Encounter - Mike Jhonson DO - 07/16/2024 4:31 PM EST Pt saw you for this in the office. I'll take care of the forms but want to talk it over when we're both in the office. * Telephone Encounter - Meenu Headley LPN - 07/16/2024 3:36 PM EST Form placed on provider's desk * Telephone Encounter - Johana Verdin OSA - 07/15/2024 11:09 AM EST Patients mother dropped off FMLA form, and medical release. FMLA is in family practice box to be filled out. Needs faxed directly to [facility] at [phone] Would like done as soon as possible * Telephone Encounter - Johana Verdin OSA - 07/14/2024 1:31 PM EST Patients mother Vicki Trujillo stopped by the office today to discuss FMLA paperwork for herto be off to care for Daniele. Vicki did not bring forms with her. She asked if they could be emailed and I said she could upload them to Daniele's chart and we would be able to access them. Sending a medical release form with Jennifer for Daniele to sign for us to be able to talk to her about him. Please contact Vicki at [phone] if you have any questions. documented in this encounter Plan of Treatment Upcoming Encounters Date Type Department Care Team (Late st Contact Info) Description 07/24/2024 11:00 AM EST Office Visit General [facility] [address] [place] [address] [address] Rosemary Michel MD [address] [place] [address] Health Maintenance Due Date Last Done Comments HIV Screening 2013 HPV (Gardasil) Vaccine (2 - Male 3-dose series) 10/29/2015 10/01/2015, 10/01/2015 Hepatitis C Screening 2016 DTap/Tdap Vaccines (7 - Td or Tdap) 12/21/2019 12/20/2009, 11/24/2003, 08/30/1999, Additional history exists Depression Screening 05/16/2023 05/16/2022 COVID-19 Vaccine (3 - season) 2024 04/13/2021, 03/23/2021 Influenza Vaccine (FLU shot) (#1) 2024 Hepatitis B Vaccine Completed 1998, 1998, 1998 MENINGOCOCCAL (MENACTRA/MENVEO) Completed 10/01/2015, 12/20/2009 Pneumococcal Vaccine: Pediatrics (0 to 5 Years) and At-Risk Patients (6 to 64 Years) Aged Out No longer eligible based on patient's age to complete this topic documented as of this encounter Medical Devices Not on filedocumented as of this encounter Care Teams Audio Visual Equipment Rental Clerk Relationship Specialty Start Date End Date Mike Johnson DO [address] [place] [address] PCP - General Family Medicine 07/05/22 documented as of this encounter
--- OUTSIDE RECORDS SUMMARY | 2024-07-28 05:22 | External Medical Summary | Summary of Care ---
Author Name Unknown Organization [facility] Address [address] [place] [address] Phone [phone] Care Team Providers Care Director Of Alumni Relations Name Role Phone DarrylMike mederos Primary Care Provider [phone] Reason for Visit * Reason Onset Date Comments Hospital Follow-Up 07/23/2024 Encounter Details Date Type Department Care Team (Late st Contact Info) Description 07/23/2024 Telephone Family Practice [facility] [address] [place] [address] Leyla Borja, [facility] Hospital Follow-Up Allergies No known active allergiesdocumented as of this encounter (statuses as of 07/23/2024) Medications Ibuprofen 200 MG Oral Tablet (Motrin) Take by mouth 200 mg every 6 hours as needed for Pain. 2 Active Melatonin 1 MG Oral Capsule Take 1 Capsule (1 mg) by mouth at bedtime. Active hydrOXYzine Pamoate 50 MG Oral Capsule (Vistaril)Indica tions:Panic attacks Take 1 Capsule by mouth 3 times a day as needed for Anxiety. 45 Capsule 11 4 Active FLUoxetine HCl 10 MG Oral Capsule (PROzac)Indicati ons:Generalized anxiety disorder,Panic disorder,Moderat e depressive disorder,Mixed obsessional thoughts and acts Take 1 capsule by mouth in the morning for 2 weeks, then increase to 2 capsules by mouth in the morning 60 Capsule 1 4 Active Apixaban 2.5 MG Oral Tablet (Eliquis) Take 1 Tablet by mouth in the morning and 1 Tablet in the evening. Active THIAMINE 25 MG OR TABS 1 Tablet. 4 Active Folic Acid 1 MG Oral Tablet Take 1 Tablet by mouth in the morning. In the morning.. 4 Active Propranolol HCl 10 MG Oral Tablet (Inderal)Indicat ions:Generalized anxiety disorder,Panic disorder Take 1-2 tablets as needed up to twice daily for anxiety 60 Tablet 1 4 07/23/20 24 Discontinu ed(Medicat ion List Clean Up) Gabapentin 300 MG Oral Capsule (Neurontin)Indic ations:Alcohol abuse,Alcohol withdrawal syndrome without complication (HCC),Panic attacks 1 tablet every 6 hours on day 1, then 1 tablet every 8 hours on day 2, then 1 tablet every 12 hours on day 3, then 1 tablet at night on day 4. 15 Capsule 4 07/23/20 24 Discontinu ed(Medicat ion List Clean Up) documented as of this [...] ne, 7 Valent 06/26/2000,12/07/1999 Rotavirus Vacc, Live, 5-[place] nt, 3 Dose (Rotateq) 1998,1998,1998 TDAP, Age [...] encounter Miscellaneous Notes * Telephone Encounter - Leyla Borja RN - 07/23/2024 8:49 AM EST Transitions of Care Note Reason for Referral:Recent Admission Phone visit for follow up: ELSA Admitted to: [facility], Date: 07/20/24 Discharged to: home, Date: 07/22/24 Diagnosis driving hospitalization: Seizure activity Source/Contact: Patient SUBJECTIVE Consent: Verbal consent for review of hospital discharge: Yes REVIEW OF SYSTEMS Patient/Other Reports: Current patient/caregiver problems or concerns: needs hospital f/u appt, and neurology referral CV: Denies problems Pulmonary: Denies problems Chills/Sweats/Fever:Denies chills/sweats Denies fever Appetite:Denies problems such as nausea, vomiting, burning, decreased appetite Current diet: regular Bowel: denies problems Bladder: denies problems Wound (If applicable): N/A Pain:Denies Sleep:Denies problems FUNCTIONAL STATUS: ADL'S: Needs Assistance With:N/A as pt is independent IADL'S: Needs Assistance With:N/A as pt is independent Cognitive and Mental Health: denies problems, alert and oriented x 3, and able to communicate, understand instructions, process information. MEDICATION RECONCILIATION Medications: Changed medication(s) since hospitalization fluoxetine increase to 20mg Discontinued medication(s) since hospitalization- gabapentin, propranolol, eliquis- per patient eliquis was discontinued OBJECTIVE ASSESSMENT Medication Risk Assessment: patient reports eliquis was d/c'd. This is not listed as discontinued on [facility] d/c instructions Did patient fail outpatient treatment? No Discharge instructions available for review? Yes PLAN Symptom Monitoring Interventions:Member/caregiver education - signs and symptoms to contact PrimaryCare (DO NOT DELETE-Three casas symptoms patient is to report to PCP) 1. Seizure activity 2. Falls/injury 3. Unresponsive/change in [place] Geophysical Party ChiefSpinning Machine Operator of Care interventions/Action Plan: Medication reconciliation and 5 - 7 day follow-up with PCP in place - Date: 07/24/24 Educated on role of ELSA completed with patient/caregiver. Educated patient/caregiver on patient right to have input on ELSA plan of care. Verification of Home Health/DME if indicated: NO n/a Identified Care Gaps: Yes Care Gaps closed this call: Appointment made or confirmed, Medication optimization, Post discharge appointment, Safety and self care issues addressed, and Transition of Care follow-up communication Re-evaluation of Plan of Care and progress towards goals achievement: Patient education this visit: Verbal, as above Plan to instructed to call Primary Care Provider with change in symptoms or as needed before next follow-up, discharge needs met, verbalizes understanding and agrees with plan. Leyla Borja RN documented in this encounter Plan of Treatment Upcoming Encounters Date Type Department Care Team (Late st Contact Info) Description 07/24/2024 11:00 AM EST Office Visit General Internal Medicine [facility] [address] [place] [address] Rosemary Michel MD [address] [place] [address] Health Maintenance Due Date Last Done Comments [...] as of this encounter Visit Diagnoses Diagnosis Generalized anxiety disorder Panic disorder Panic disorder without agoraphobia Moderate depressive disorder Depressive disorder, not elsewhere classified Mixed obsessional thoughts and acts documented in this encounter Care Teams Director Of Alumni Relations Relationship Specialty Start Date End Date Mike Johnson DO [address] [place] [address] PCP - General Family Medicine 07/05/22 documented as of this encounter
--- OUTSIDE RECORDS SUMMARY | 2024-07-28 05:22 | External Medical Summary | Summary of Care ---
Author Name Unknown Organization [facility] Address [address] [place] [address] Phone [phone] Care Team Providers Care Labelling Machine Operator Name Role Phone DarrylMike mederos DO Primary Care Provider [phone] Encounter Details Date Type Department Care Team (Late st Contact Info) Description 07/21/2024 Result Scan Unspecified Department <No scans attached> Allergies No known active allergiesdocumented as of this encounter (statuses as of 07/22/2024) Medications Ibuprofen 200 MG Oral Tablet (Motrin) [...] the morning 60 Capsule 1 4 Active Propranolol HCl 10 MG Oral [...] as of this encounter (statuses as of 07/22/2024) Active Problems Problem Noted Date Diagnosed Date Panic attacks 05/16/2022 documented as of this encounter (statuses as of 07/22/2024) Immunizations Name Administration Dates Next Due DTaP Dipth/Tet/Acell Pertussis (Infanrix), Peds 11/24/2003,08/30/1999,1998,10/12,1998 HPV Vaccine, 9-Valent 10/01/2015 Hepatitis A, Ped/Adol., 18 y ear and below, 2-Dose 10/01/2015,12/22/2011 Hepatitis B, 0-19 yrs 1998,1998,05/20 IPV - Polio Virus Vaccine (Inact) 2003,06/06/1999,1998,07/28 MMR - Measles/Mumps/Rubella Vaccine 11/24/2003,1 Meningococcal MCV4P Conjugat e Vaccine (Menactra) 10/01/2015,12/20/2009 Pneumococcal Conjugate Vacci ne, 7 Valent 06/26/2000,12/07/1999 Rotavirus Vacc, Live, 5-[place] nt, 3 Dose (Rotateq) 1998,1998,1998 TDAP, Age [...] on file documented as of this encounter Plan of Treatment Upcoming Encounters Date Type Department Care Team (Late st Contact Info) Description 07/22/2024 4:40 PM EST Office Visit Family Practice [facility] [address] [place] [address] Mike Johnson, [address] [facility] [place] [address] Health Maintenance Due Date Last Done Comments HIV Screening 2013 HPV (Gardasil) Vaccine (2 - Male 3-dose series) 10/29/2015 10/01/2015 Hepatitis C Screening 2016 DTap/Tdap Vaccines (7 - Td or Tdap) 12/21/2019 12/20/2009, 11/24/2003, 08/30/1999, Additional history exists Depression Screening 05/16/2023 05/16/2022 COVID-19 Vaccine ( season) 2024 Influenza Vaccine (FLU shot) (#1) 2024 Hepatitis B Vaccine Completed 1998, 1998, 1998 MENINGOCOCCAL (MENACTRA/MENVEO) Completed 10/01/2015, 12/20/2009 Pneumococcal Vaccine: Pediatrics (0 to 5 Years) and At-Risk Patients (6 to 64 Years) Aged Out No longer eligible based on patient's age to complete this topic documented as of this encounter Medical Devices Not on filedocumented as of this encounter Procedures Procedure Name Priority Date/Time Associated Diagnosis Comments PROCEDURE SCANNED RESULT 07/21/2024 documented in this encounter Results * PROCEDURE SCANNED RESULT (07/21/2024) 07/21/2024 us No Physician Data Unknown SURGERY Final Result documented in this encounter Care Teams Labelling Machine Operator Relationship Specialty Start Date End Date Mike Johnson DO [address] [place] [address] [place] [address] PCP - General Family Medicine 07/05/22 documented as of this encounter
--- OUTSIDE RECORDS SUMMARY | 2024-07-28 05:22 | External Medical Summary | Summary of Care ---
Author Name Unknown Organization [facility] Address [address] [place] [address] Phone [phone] Care Team Providers Care Concrete Tester Name Role Phone Mike Johnson DO Primary Care Provider [phone] Reason for Visit * Reason Onset Date Comments Med Request 07/19/2024 Encounter Details Date Type Department Care Team (Late st Contact Info) Description 07/19/2024 Telephone Family Practice [facility] [address] [place] [address] Mike Johnson DO [address] [place] [address] Med Request Allergies No known active allergiesdocumented as of this encounter (statuses as of 07/21/2024) Medications Ibuprofen 200 MG Oral Tablet (Motrin) [...] as of this encounter (statuses as of 07/21/2024) Active Problems Problem Noted Date Diagnosed Date Panic attacks 05/16/2022 documented as of this encounter (statuses as of 07/21/2024) Immunizations Name Administration Dates Next Due DTaP [...] encounter Miscellaneous Notes * Telephone Encounter - Meenu Headley LPN - 07/21/2024 10:06 AM EST Had telemed 07/19 & med prescribed * Telephone Encounter - Jenna Lobo CPhT - 07/19/2024 8:20 AM EST Pt calling in stated he inquired about medication for helping with drinking. Pt has to get lab workdone, which he did a walk in. Pt is asking if medication can be sent into [facility] [id number] Thank you, Jenna Lobo CPhT II [employer] [facility] 07/19/2024, 8:21 AM documented in this encounter Plan of Treatment Upcoming Encounters Date Type Department Care Team (Late st Contact Info) Description 07/22/2024 4:40 PM EST Office Visit Family [facility] [address] [place] [address] [address] Mike Johnson DO [address] [facility] [place] [address] Health Maintenance Due Date Last Done Comments [...] filedocumented as of this encounter Care Teams Concrete Tester Relationship Specialty Start Date End Date Mike Johnson DO [address] [place] [address] [address] PCP - General Family Medicine 07/05/22 documented as of this encounter
--- OUTSIDE RECORDS SUMMARY | 2024-07-28 05:22 | External Medical Summary | Summary of Care ---
Author Name Unknown Organization [facility] Address [address] [place] [address] Phone [phone] Care Team Providers Care Classifier Operator Name Role Phone Mike Johnson DO Primary Care Provider [phone] Encounter Details Date Type Department Care Team (Late st Contact Info) Description 07/21/2024 Orders Only [facility] [address] [place] [address] Vicki Hurley CHRA [employer] Other*[id number] Allergies No known active allergiesdocumented as of [...] ne, 7 Valent 06/26/2000,12/07/1999 Rotavirus Vacc, Live, 5-[place] nt, 3 Dose (Rotateq) 1998,1998,1998 TDAP, Age [...] 4:40 PM EST Office Visit Family Practice [facility] [place] [address] [facility] [place], [place] [address] Mike Johnson DO [address] [facility] [place] [address] Scheduled Orders Name Type Priority Associated Diagnoses Orde r Schedule MYCODE SUBSEQUENT ADULT Lab Routine [employer] Other*[id number] Every 6 Months for 2 Occurrences starting 07/21/2024 until 08/10/2025 Health Maintenance Due Date Last Done Comments [...] as of this encounter Visit Diagnoses Diagnosis [employer] Other*[id number] documented in this encounter Care Teams Classifier Operator Relationship Specialty Start Date End Date Mike Johnson DO [address] [place] [address] PCP - General Family Medicine 07/05/22 documented as of this encounter
[2024-07-28] MEDS ORDERED: chlordiazePOXIDE HCl 25 MG CAP PO SCH (06:00)
[2024-07-29] MEDS ORDERED: chlordiazePOXIDE HCl 25 MG CAP PO SCH (06:00)
[2024-07-30 15:47] LABS: Marijuana Quant, GCMS Urine 309 ng/mL (<5)
== END 2024-07-27 13:36 | disposition left against medical advice (07) | DRG 894 ==
LOC: ED 18:39 → INTOOBSV 07-27 03:27 → EDINP 07-27 03:27